=== PATIENT | female | born 1985 | race Caucasian/White ===

== ENCOUNTER → 2016-05-24 | Outpatient (CLI) | payer OTHER ==
[~2016-05-24] MED LIST: ACETAMINOPHEN TAB 500 MG TAB PO ONE; LORATADINE 10 MG TAB PO ONE; SODIUM CHLORIDE 0.9% 250 ML in EMPTY BAG 1 BAG IV PRN; SODIUM CHLORIDE 0.9% 500 ML in EMPTY BAG 1 BAG IV PRN
[2016-05-24 12:21] VITALS: RESP 16; TEMP 98.4
[2016-05-24 13:49] VITALS: BP 109/68; PULSE 80
== END | disposition home or self-care (01) ==
LOC: PROCWHC3 11:57
PROVIDERS: ATTEND Physician Assistant
DX: K50.80 Crohn's disease of both small and large intestine without complications (principal)
CPT/HCPCS: 96361; 96413; 96415; J1745

== ENCOUNTER → 2016-08-02 | Outpatient (CLI) | payer OTHER ==
[~2016-08-02] MED LIST changes: -ACETAMINOPHEN TAB 500 MG TAB PO ONE; -LORATADINE 10 MG TAB PO ONE; -SODIUM CHLORIDE 0.9% 500 ML in EMPTY BAG 1 BAG IV PRN
[2016-08-02 13:04] VITALS: RESP 16; TEMP 98.3
[2016-08-02] MEDS: SODIUM CHLORIDE 0.9% 500 ML in EMPTY BAG 1 BAG IV PRN (13:06)
[2016-08-02 13:39] LABS: Basophils # (A) 0.1 k/uL (0-0.2); Basophils % (A) 1 %; CH 31.4; CHCM 33.4; Eosinophils # (A) 0.1 k/uL (0-0.7); Eosinophils % (A) 1 %; HCT 45.8 % (34.0-46.0); Luc # (Auto) 0.15; Luc % (Auto) 2; Lymphocytes # (A) 1.8 k/uL (1.0-4.8); Lymphocytes % (A) 25 %; MCH 30.9 pg (25.0-35.0); MCHC 32.6 g/dL (31.0-37.0); MCV 94.6 fL (80.0-100.0); Mean Platelet Volume 9.1; Monocytes # (A) 0.3 k/uL (0-1.0); Monocytes % (A) 4 %; Neutrophils # (A) 4.8 k/uL (1.3-7.7); Neutrophils % (A) 67 %; RBC 4.84 m/uL (3.80-5.40); RDW 13.2 % (11.5-15.5); WBC 7.1 k/uL (3.8-10.6)
[2016-08-02 14:02] LABS: ALT 31 U/L (9-52); AST 23 U/L (14-36); Alkaline Phosphatase 47 U/L (38-126); Anion Gap 15 mmol/L; Blood Urea Nitrogen 8 mg/dL (7-17); Calcium 9.6 mg/dL (8.4-10.2); Carbon Dioxide 20 mmol/L (22-30); Chloride 109 mmol/L (98-107); Glucose 141 mg/dL (74-99); Non-African American GFR(MDRD) >60 (>60 ml/min/1.73 sqM); Potassium 3.8 mmol/L (3.5-5.1); Sodium 144 mmol/L (137-145); Total Bilirubin 0.7 mg/dL (0.2-1.3); Total Protein 7.5 g/dL (6.3-8.2)
[2016-08-02 14:14] VITALS: PULSE 83
[2016-08-02 14:26] VITALS: BP 112/75
== END | disposition home or self-care (01) ==
LOC: PROCWHC3 12:46
PROVIDERS: ATTEND Internal Medicine Gastroenterology
DX: K50.80 Crohn's disease of both small and large intestine without complications (principal)
CPT/HCPCS: 80053; 85025; 96361; 96413; 96415; 36415; J1745

== ENCOUNTER → 2016-09-27 | Outpatient (CLI) | payer OTHER ==
[~2016-09-27] MED LIST changes: +SODIUM CHLORIDE 0.9% 500 ML in EMPTY BAG 1 BAG IV PRN
[2016-09-27 12:28] VITALS: TEMP 98.3
[2016-09-27 13:45] VITALS: RESP 16
[2016-09-27 14:04] VITALS: BP 115/64; PULSE 62
== END | disposition home or self-care (01) ==
LOC: PROCWHC3 11:59
PROVIDERS: ATTEND Internal Medicine Gastroenterology
DX: K50.80 Crohn's disease of both small and large intestine without complications (principal)
CPT/HCPCS: 96413; 96415; J1745

== ENCOUNTER → 2016-11-28 | Outpatient (CLI) | payer OTHER ==
[~2016-11-28] MED LIST changes: +ACETAMINOPHEN TAB 500 MG TAB PO PRN
[2016-11-28 13:18] VITALS: RESP 16; TEMP 98.7
[2016-11-28 14:00] LABS: Basophils # (A) 0.1 k/uL (0-0.2); Basophils % (A) 1 %; CHCM 33.5; Eosinophils # (A) 0.2 k/uL (0-0.7); Eosinophils % (A) 2 %; HCT 38.2 % (34.0-46.0); HDW 2.17; HGB 13.1 gm/dL (11.4-16.0); Luc # (Auto) 0.11; Luc % (Auto) 2; Lymphocytes # (A) 1.7 k/uL (1.0-4.8); Lymphocytes % (A) 23 %; MCH 31.9 pg (25.0-35.0); MCHC 34.3 g/dL (31.0-37.0); MCV 93.1 fL (80.0-100.0); Mean Platelet Volume 8.5; Monocytes # (A) 0.3 k/uL (0-1.0); Monocytes % (A) 4 %; Neutrophils % (A) 69 %; RDW 13.4 % (11.5-15.5); WBC 7.3 k/uL (3.8-10.6); WBC (Perox) 7.13
[2016-11-28 14:19] LABS: ALT 22 U/L (9-52); AST 17 U/L (14-36); Alkaline Phosphatase 46 U/L (38-126); Anion Gap 10 mmol/L; Blood Urea Nitrogen 6 mg/dL (7-17); Carbon Dioxide 23 mmol/L (22-30); Chloride 107 mmol/L (98-107); Glucose 71 mg/dL (74-99); Non-African American GFR(MDRD) >60 (>60 ml/min/1.73 sqM); Potassium 3.7 mmol/L (3.5-5.1); Sodium 140 mmol/L (137-145); Total Bilirubin 0.4 mg/dL (0.2-1.3); Total Protein 6.9 g/dL (6.3-8.2)
[2016-11-28 14:25] VITALS: BP 101/64; PULSE 70
== END ==
LOC: PROCWHC3 12:41
PROVIDERS: ATTEND Internal Medicine Gastroenterology
DX: Z51.11 Encounter for antineoplastic chemotherapy (principal); K50.80 Crohn's disease of both small and large intestine without complications
CPT/HCPCS: 80053; 85025; 96413; 96415; 36415; J1745

== ENCOUNTER → 2017-01-23 | Outpatient (CLI) | payer OTHER ==
[~2017-01-23] MED LIST changes: -ACETAMINOPHEN TAB 500 MG TAB PO PRN; +LORATADINE 10 MG TAB PO ONE; -SODIUM CHLORIDE 0.9% 250 ML in EMPTY BAG 1 BAG IV PRN
[2017-01-23 12:31] VITALS: RESP 16; TEMP 98.5
[2017-01-23 14:17] VITALS: BP 107/65; PULSE 56
== END ==
LOC: PROCWHC3 12:20
PROVIDERS: ATTEND Internal Medicine Gastroenterology
DX: K50.80 Crohn's disease of both small and large intestine without complications (principal)
CPT/HCPCS: 96413; 96415; J1745

== ENCOUNTER → 2017-03-13 | Outpatient (CLI) | payer SELFPAY ==
[~2017-03-13] MED LIST changes: +ACETAMINOPHEN TAB 500 MG TAB PO ONE
== END ==
LOC: PROCWHC3 11:39
PROVIDERS: ATTEND Internal Medicine Gastroenterology

== ENCOUNTER → 2017-06-12 | Outpatient (CLI) | payer OTHER ==
[~2017-06-12] MED LIST changes: -ACETAMINOPHEN TAB 500 MG TAB PO ONE; +INFLIXIMAB-DYYB 300 MG in SODIUM CHLORIDE 0.9% 250 ML IV ONE; -LORATADINE 10 MG TAB PO ONE
[2017-06-12 13:21] LABS: Basophils # (A) 0.1 k/uL (0-0.2); Basophils % (A) 1 %; Eosinophils # (A) 0.1 k/uL (0-0.7); Eosinophils % (A) 1 %; HCT 38.7 % (34.0-46.0); HGB 12.7 gm/dL (11.4-16.0); Lymphocytes # (A) 1.9 k/uL (1.0-4.8); Lymphocytes % (A) 20 %; MCH 30.6 pg (25.0-35.0); MCHC 32.7 g/dL (31.0-37.0); MCV 93.6 fL (80.0-100.0); Mean Platelet Volume 8.1; Monocytes # (A) 0.3 k/uL (0-1.0); Monocytes % (A) 3 %; Neutrophils # (A) 7.4 k/uL (1.3-7.7); Neutrophils % (A) 75 %; Platelet Count 260 k/uL (150-450); RBC 4.14 m/uL (3.80-5.40); WBC 9.9 k/uL (3.8-10.6)
[2017-06-12 13:27] LABS: ALT 19 U/L (9-52); AST 16 U/L (14-36); Albumin 4.2 g/dL (3.5-5.0); Alkaline Phosphatase 58 U/L (38-126); Anion Gap 12 mmol/L; Blood Urea Nitrogen 9 mg/dL (7-17); Calcium 9.6 mg/dL (8.4-10.2); Carbon Dioxide 24 mmol/L (22-30); Chloride 105 mmol/L (98-107); Glucose 67 mg/dL (74-99); Potassium 3.7 mmol/L (3.5-5.1); Sodium 141 mmol/L (137-145); Total Bilirubin 0.3 mg/dL (0.2-1.3); Total Protein 6.9 g/dL (6.3-8.2)
[2017-06-12 14:11] VITALS: BP 107/56; PULSE 75; RESP 16; TEMP 98.1
== END | disposition home or self-care (01) ==
LOC: PROCWHC3 12:10
PROVIDERS: ATTEND Internal Medicine Gastroenterology
DX: K50.80 Crohn's disease of both small and large intestine without complications (principal)
CPT/HCPCS: 80053; 85025; 96413; 96415; 36415; Q5102

== ENCOUNTER → 2017-08-07 | Outpatient (CLI) | payer OTHER ==
[2017-08-07 12:33] VITALS: TEMP 98.7
[2017-08-07 13:11] VITALS: RESP 18
[2017-08-07 14:12] VITALS: BP 124/77; PULSE 67
== END | disposition home or self-care (01) ==
LOC: PROCWHC3 11:56
PROVIDERS: ATTEND Internal Medicine Gastroenterology
DX: K50.90 Crohn's disease, unspecified, without complications (principal)
CPT/HCPCS: 96413; 96415; Q5102

== ENCOUNTER 2017-08-08 17:29 | Emergency (ER) | payer OTHER ==
[2017-08-08] MEDS ORDERED: SODIUM CHLORIDE 0.9% 1,000 ML IV STA (18:06)
[2017-08-08] MEDS ORDERED: MORPHINE SULFATE/PF 10MG/10ML VL IVP STA (18:06)
[2017-08-08 18:24] LABS: Appearance,Urine Clear (Clear); Basophils # (A) 0.1 k/uL (0-0.2); Basophils % (A) 1 %; Bilirubin,Urine Negative (Negative); Blood,Urine Negative (Negative); Color,Urine Yellow; Eosinophils # (A) 0.2 k/uL (0-0.7); Eosinophils % (A) 2 %; Glucose,Urine (UA) Negative (Negative); HCT 40.9 % (34.0-46.0); HGB 13.3 gm/dL (11.4-16.0); Ketones,Urine Negative (Negative); Leukocyte Esterase,Urine Negative (Negative); Lymphocytes # (A) 2.2 k/uL (1.0-4.8); Lymphocytes % (A) 23 %; MCH 29.5 pg (25.0-35.0); MCHC 32.6 g/dL (31.0-37.0); MCV 90.6 fL (80.0-100.0); Mean Platelet Volume 8.1; Monocytes # (A) 0.4 k/uL (0-1.0); Monocytes % (A) 4 %; Neutrophils # (A) 6.5 k/uL (1.3-7.7); Neutrophils % (A) 68 %; Nitrite,Urine Negative (Negative); PH, Urine 6.5 (5.0-8.0); Platelet Count 300 k/uL (150-450); Protein,Urine Trace (Negative); RBC 4.52 m/uL (3.80-5.40); RDW 13.3 % (11.5-15.5); Specific Gravity,Urine 1.022 (1.001-1.035); Urobilinogen,Urine <2.0 mg/dL (<2.0); WBC 9.5 k/uL (3.8-10.6)
--- NOTE | 2017-08-08 18:28 | ED ---
Abdominal Pain HPI - General Chief Complaint: Abdominal Pain Stated Complaint: ABDOMINAL PAIN, POSS CROHNS FLARE Time Seen by Provider: 08/08/17 17:58 Source: patient, RN notes reviewed Mode of arrival: ambulatory Limitations: no limitations - History of Present Illness Initial Comments: This is a 31-year-old female who presents emergency to pain with chief complaint of abdominal pain. Patient states that she has a history of Crohn's and is worried that this may be a flare. She states that the pain started 3 days ago and is located in the periumbilical region. She states the pain radiates to her lower abdomen. Patient states that the pain has been the same over the past 3 days but it just will not go away. She currently rates the pain as 8/10. She describes the pain as intermittent and sharp coming on every 5-10 minutes. She states her last bowel movement was 2 days ago. Denies nausea or vomiting. Denies fevers or chills, shortness of breath or chest pain , dysuria or hematuria. Patient states that she sees Dr. Ruffin for Remicade infusions for the past 2 years. Her last infusion was yesterday. - Related Data Home Medications Medication Instructions Recorded Confirmed Albuterol Sulfate [Ventolin HFA] 1 inhaler INHALATION RT-QID PRN 09/18/14 inFLIXimab [Remicade] 100 mg IV Q60D 08/06/15 08/08/17 Allergies Allergy/AdvReac Type Severity Reaction Status Date / Time No Known Allergies Allergy Verified 08/08/17 18:00 Review of Systems ROS Statement: Those systems with pertinent positive or pertinent negative responses have been documented in the HPI. ROS Other: All systems not noted in ROS Statement are negative. Past Medical History Past Medical History: No Reported History Additional Past Medical History / Comment(s): Crohn's, hypoglycemia History of Any Multi-Drug Resistant Organisms: None Reported Past Surgical History: Adenoidectomy, Section Past Anesthesia/Blood Transfusion Reactions: No Reported Reaction Past Psychological History: No Psychological Hx Reported Smoking Status: Former smoker Past Alcohol Use History: None Reported Past Drug Use History: Marijuana - Past Family History Mother Family Medical History: No Reported History General Exam - General Exam Comments Initial Comments: General: Awake and alert, well-developed; in no apparent distress. Sitting on ED stretcher, rocking back and forth and reading a book. HEENT: Head atraumatic, normocephalic. Pupils are equal, round and reactive to light. Extraocular movements intact. Oropharynx moist without erythema or exudate. Neck: Supple. Normal ROM. Cardiovascular: Regular rate and rhythm. No murmurs, rubs or gallops. Chest symmetrical. Respiratory: Lungs clear to auscultation bilaterally. No wheezes, rales or rhonchi. Normal respiratory effort with no use of accessory muscles. Abdomen: Soft, non-distended. Generalized tenderness on palpation of lower abdomen with guarding. No rigidity, or rebound. Normal bowel sounds in all 4 quadrants. Musculoskeletal: Normal ROM, no tenderness bilateral upper and lower extremities. Skin: [place], warm and dry without rashes or lesions. Neurological: Alert and oriented x3. CN II-XII grossly intact. Speech is fluent and answers are appropriate. No focal neuro deficits. Psychiatric: Normal mood and affect. No overt signs of depression or anxiety noted. Limitations: no limitations Course Vital Signs 08/08/17 17:33 Temperature 98.9 F Pulse Rate 85 Respiratory 16 Rate Blood Pressure 123/78 O2 Sat by Pulse 99 Oximetry - Reevaluation(s) Reevaluation #1: 08/08/17 19:07 Patient was reevaluated at this time. She states that her pain has much improved and she is feeling significantly better. Lab findings were discussed with patient. She is eager for discharge home and follow-up with Dr. Ruffin outpatient. Medical Decision Making - Medical Decision Making This is a 31-year-old female with history of Crohn's disease who presents to the emergency department with chief complaint of abdominal pain. CBC, CMP and UA were unremarkable. Patient denies any rectal bleeding, nausea or vomiting. KUB revealed no abnormalities. Patient was given fluids and pain medication while in the emergency department. Initially after receiving the medication, patient stated that she was feeling remarkably improved. On second reevaluation , patient complains of recurring pain but not as bad as when she first arrived. Recommended computed tomography scan and patient declines, stating that she would like to be discharged home. Vital signs are stable and she is in no acute distress. She'll be discharged home. Recommended following up with Dr. Ruffin within 1-2 days. Patient is in agreement with plan and voices understanding. All questions were answered. - Lab Data Result diagrams: 08/08/17 17:50 08/08/17 17:50 Lab Results 08/08/17 08/08/17 08/08/17 Range/Units 17:50 17:50 17:50 WBC 9.5 (3.8-10.6) k/uL RBC 4.52 (3.80-5.40) m/uL Hgb 13.3 (11.4-16.0) gm/dL Hct 40.9 (34.0-46.0) % MCV 90.6 (80.0-100.0) fL MCH 29.5 (25.0-35.0) pg MCHC 32.6 (31.0-37.0) g/dL RDW 13.3 (11.5-15.5) % Plt Count 300 (150-450) k/uL Neutrophils % 68 % Lymphocytes % 23 % Monocytes % 4 % Eosinophils % 2 % Basophils % 1 % Neutrophils # 6.5 (1.3-7.7) k/uL Lymphocytes # 2.2 (1.0-4.8) k/uL Monocytes # 0.4 (0-1.0) k/uL Eosinophils # 0.2 (0-0.7) k/uL Basophils # 0.1 (0-0.2) k/uL Sodium 143 (137-145) mmol/L Potassium 4.1 (3.5-5.1) mmol/L Chloride 109 H (98-107) mmol/L Carbon Dioxide 21 L (22-30) mmol/L Anion Gap 13 mmol/L BUN 10 (7-17) mg/dL Creatinine 0.50 L (0.52-1.04) mg/dL Est GFR (CKD-EPI)AfAm >90 (>60 ml/min/1.73 sqM) Est GFR (CKD-EPI)NonAf >90 (>60 ml/min/1.73 sqM) Glucose 85 (74-99) mg/dL Calcium 9.8 (8.4-10.2) mg/dL Total Bilirubin 0.2 (0.2-1.3) mg/dL AST 14 (14-36) U/L ALT 17 (9-52) U/L Alkaline Phosphatase 69 (38-126) U/L Total Protein 7.2 (6.3-8.2) g/dL Albumin 4.2 (3.5-5.0) g/dL Amylase 50 (30-110) U/L Lipase 93 (23-300) U/L Urine Color Urine Appearance (Clear) Urine pH (5.0-8.0) Ur Specific [place] (1.001-1.035) Urine Protein (Negative) Urine Glucose (UA) (Negative) Urine Ketones (Negative) Urine Blood (Negative) Urine Nitrite (Negative) Urine Bilirubin (Negative) Urine Urobilinogen (<2.0) mg/dL Ur Leukocyte Esterase (Negative) Urine HCG, Qual Not Detected (Not Detectd) 08/08/17 Range/Units 17:50 WBC (3.8-10.6) k/uL RBC (3.80-5.40) m/uL Hgb (11.4-16.0) gm/dL Hct (34.0-46.0) % MCV (80.0-100.0) fL MCH (25.0-35.0) pg MCHC (31.0-37.0) g/dL RDW (11.5-15.5) % Plt Count (150-450) k/uL Neutrophils % % Lymphocytes % % Monocytes % % Eosinophils % % Basophils % % Neutrophils # (1.3-7.7) k/uL Lymphocytes # (1.0-4.8) k/uL Monocytes # (0-1.0) k/uL Eosinophils # (0-0.7) k/uL Basophils # (0-0.2) k/uL Sodium (137-145) mmol/L Potassium (3.5-5.1) mmol/L Chloride (98-107) mmol/L Carbon Dioxide (22-30) mmol/L Anion Gap mmol/L BUN (7-17) mg/dL Creatinine (0.52-1.04) mg/dL Est GFR (CKD-EPI)AfAm (>60 ml/min/1.73 sqM) Est GFR (CKD-EPI)NonAf (>60 ml/min/1.73 sqM) Glucose (74-99) mg/dL Calcium (8.4-10.2) mg/dL Total Bilirubin (0.2-1.3) mg/dL AST (14-36) U/L ALT (9-52) U/L Alkaline Phosphatase (38-126) U/L Total Protein (6.3-8.2) g/dL Albumin (3.5-5.0) g/dL Amylase (30-110) U/L Lipase (23-300) U/L Urine Color Yellow Urine Appearance Clear (Clear) Urine pH 6.5 (5.0-8.0) Ur Specific [place] 1.022 (1.001-1.035) Urine Protein Trace H (Negative) Urine Glucose (UA) Negative (Negative) Urine Ketones Negative (Negative) Urine Blood Negative (Negative) Urine Nitrite Negative (Negative) Urine Bilirubin Negative (Negative) Urine Urobilinogen <2.0 (<2.0) mg/dL Ur Leukocyte Esterase Negative (Negative) Urine HCG, Qual (Not Detectd) - Radiology Data Radiology results: report reviewed X-ray KUB findings: There is no pneumoperitoneum or pneumatosis. Bowel gas pattern is normal. Soft tissues and skeletal structures are unremarkable. No abnormal calcifications. The visualized lung bases and pleural spaces and cardiac silhouette are unremarkable. Impression: Negative examination. Disposition Clinical Impression: Abdominal pain Disposition: HOME SELF-CARE Condition: Good Instructions: Abdominal Pain (ED), Crohn Disease (ED) Additional Instructions: Please follow-up with Dr. Ruffin within 1-2 days. Please follow up with primary care provider within 1-2 days. Return to emergency department if symptoms should worsen or any concerns arise. Referrals: Madison Vick MD [Primary Care Provider] - 1-2 days Le Ruffin MD [STAFF PHYSICIAN] - 1-2 days Time of Disposition: 19:45
[2017-08-08 18:37] LABS: ALT 17 U/L (9-52); AST 14 U/L (14-36); Albumin 4.2 g/dL (3.5-5.0); Alkaline Phosphatase 69 U/L (38-126); Amylase 50 U/L (30-110); Anion Gap 13 mmol/L; Blood Urea Nitrogen 10 mg/dL (7-17); Calcium 9.8 mg/dL (8.4-10.2); Carbon Dioxide 21 mmol/L (22-30); Chloride 109 mmol/L (98-107); Glucose 85 mg/dL (74-99); Lipase 93 U/L (23-300); Potassium 4.1 mmol/L (3.5-5.1); Sodium 143 mmol/L (137-145); Total Bilirubin 0.2 mg/dL (0.2-1.3); Total Protein 7.2 g/dL (6.3-8.2)
--- NOTE | 2017-08-08 19:30 | XR ---
EXAMINATION TYPE: XR KUB, 2 views DATE OF EXAM: 08/08/2017 COMPARISON: 09/04/2012 HISTORY: Right-sided abdominal pain, history of Crohn's TECHNIQUE: 2 upright views FINDINGS: There is no pneumoperitoneum or pneumatosis. Bowel gas pattern is normal. The soft tissues and skeletal structures are unremarkable. No abnormal calcifications. The visualized lung bases and pleural spaces and cardiac silhouette are unremarkable. IMPRESSION: NEGATIVE EXAMINATION.
[2017-08-08] MEDS ORDERED: ACETAMINOPHEN TAB 500 MG TAB PO STA (20:00)
[2017-08-08 20:01] VITALS: RESP 18; TEMP 98
[2017-08-08] MEDS ORDERED: ONDANSETRON ODT 4 MG TAB PO STA (20:04)
[2017-08-08 20:09] VITALS: BP 131/75; PULSE 70
[2017-08-08] MEDS ORDERED: ONDANSETRON 4 MG ODT STARTER PACK 2 TAB BTL PO STA (20:31)
== END 2017-08-08 20:37 | disposition home or self-care (01) ==
LOC: EC 17:29
DX: R10.30 Lower abdominal pain, unspecified (principal); K50.90 Crohn's disease, unspecified, without complications; Z87.891 Personal history of nicotine dependence; Z79.899 Other long term (current) drug therapy; Z98.890 Other specified postprocedural states
CPT/HCPCS: 96374; 96361 ×2; 99284; 36415; 80053; 82150; 83690; 85025; 81003; 81025; 74018; S0119; J2270

== ENCOUNTER 2017-10-04 06:26 | Emergency (ER) | payer OTHER ==
[2017-10-04] MEDS ORDERED: MORPHINE SULFATE 4 MG/ML SYRINGE IV STA (06:37)
[2017-10-04] MEDS ORDERED: ONDANSETRON 4 MG/2 ML VIAL IVP STA (06:37)
[2017-10-04 07:06] VITALS: RESP 16
[2017-10-04 07:08] LABS: Basophils % (A) 0 %; Eosinophils # (A) 0.1 k/uL (0-0.7); Eosinophils % (A) 1 %; HGB 13.5 gm/dL (11.4-16.0); Lymphocytes # (A) 0.7 k/uL (1.0-4.8); Lymphocytes % (A) 5 %; MCH 28.8 pg (25.0-35.0); MCHC 32.1 g/dL (31.0-37.0); MCV 89.5 fL (80.0-100.0); Mean Platelet Volume 8.1; Monocytes # (A) 0.1 k/uL (0-1.0); Monocytes % (A) 1 %; Neutrophils # (A) 13.4 k/uL (1.3-7.7); Neutrophils % (A) 93 %; Platelet Count 309 k/uL (150-450); RDW 13.5 % (11.5-15.5); WBC 14.4 k/uL (3.8-10.6)
[2017-10-04] MEDS ORDERED: SODIUM CHLORIDE 0.9% 1,000 ML IV STA (07:15)
[2017-10-04] MEDS ORDERED: SODIUM CHLORIDE 0.9% 2,000 ML IV ONE (07:15)
[2017-10-04 07:17] LABS: ALT 29 U/L (9-52); AST 16 U/L (14-36); Albumin 4.5 g/dL (3.5-5.0); Alkaline Phosphatase 81 U/L (38-126); Amylase 46 U/L (30-110); Anion Gap 17 mmol/L; Blood Urea Nitrogen 10 mg/dL (7-17); Calcium 10.1 mg/dL (8.4-10.2); Carbon Dioxide 21 mmol/L (22-30); Chloride 105 mmol/L (98-107); Glucose 172 mg/dL (74-99); Lipase 63 U/L (23-300); Potassium 4.5 mmol/L (3.5-5.1); Sodium 143 mmol/L (137-145); Total Bilirubin 0.7 mg/dL (0.2-1.3); Total Protein 7.4 g/dL (6.3-8.2)
--- NOTE | 2017-10-04 07:28 | ED ---
Abdominal Pain HPI - General Chief Complaint: Abdominal Pain Stated Complaint: vomiting Time Seen by Provider: 10/04/17 07:00 Source: patient, RN notes reviewed Mode of arrival: wheelchair Limitations: no limitations - History of Present Illness Initial Comments: This is a 32-year-old female history Crohn's disease who states she had the onset last night of multiple episodes of nausea and vomiting with crampy abdominal pain that is diffuse and severe. She thinks she vomited 15 times no diarrhea he's had shakes and sweats or chills. No blood in her vomit. She states that since that episode with history of bowel obstruction. She denies any surgeries however for the Crohn's disease. She does also state that she has lightheadedness and dizziness when she gets up to try to walk. No other modifying factors she was given pain medication upon arrival as well as Zofran she does feelsomewhat improved at this time. MD Complaint: abdominal pain, other - Related Data Home Medications Medication Instructions Recorded Confirmed Albuterol Sulfate [Ventolin HFA] 1 puff INHALATION RT-QID PRN 09/18/14 10/04/17 inFLIXimab [Remicade] 100 mg IV Q60D 08/06/15 10/04/17 Acetaminophen Tab [Tylenol Tab] 1,000 mg PO Q6HR PRN 10/04/17 10/04/17 Previous Rx's Medication Instructions Recorded Ondansetron Odt [Zofran Odt] 4 mg PO Q8HR PRN #10 tab 10/04/17 Allergies Allergy/AdvReac Type Severity Reaction Status Date / Time No Known Allergies Allergy Verified 10/04/17 08:16 Review of Systems ROS Statement: Those systems with pertinent positive or pertinent negative responses have been documented in the HPI. ROS Other: All systems not noted in ROS Statement are negative. Past Medical History Past Medical History: No Reported History Additional Past Medical History / Comment(s): Crohn's, hypoglycemia History of Any Multi-Drug Resistant Organisms: None Reported Past Surgical History: Adenoidectomy, Section Past Anesthesia/Blood Transfusion Reactions: No Reported Reaction Past Psychological History: No Psychological Hx Reported Smoking Status: Current every day smoker Past Alcohol Use History: None Reported Past Drug Use History: Marijuana - Past Family History Mother Family Medical History: No Reported History General Exam - General Exam Comments Initial Comments: This is a well-developed well-nourished awake alert oriented 3 female Limitations: no limitations General appearance: alert, anxious Head exam: Present: atraumatic, normocephalic, normal inspection Eye exam: Present: normal appearance, PERRL, EOMI. Absent: scleral icterus, conjunctival injection, periorbital swelling ENT exam: Present: normal exam, mucous membranes moist Neck exam: Present: normal inspection. Absent: tenderness, meningismus, lymphadenopathy Respiratory exam: Present: normal lung sounds bilaterally. Absent: respiratory distress, wheezes, rales, rhonchi, stridor Cardiovascular Exam: Present: regular rate, normal rhythm, normal heart sounds. Absent: systolic murmur, diastolic murmur, rubs, gallop, clicks GI/Abdominal exam: Present: soft, tenderness (Mild generalized tenderness no guarding rebound masses or bruits), normal bowel sounds. Absent: distended, guarding, rebound, rigid Rectal exam: Present: deferred Extremities exam: Present: normal inspection, full ROM, normal capillary refill. Absent: tenderness, pedal edema, joint swelling, calf tenderness Back exam: Present: normal inspection Neurological exam: Present: alert, oriented X3, CN II-XII intact Psychiatric exam: Present: normal affect, normal mood Skin exam: Present: warm, dry, intact, normal color. Absent: rash Course Vital Signs 10/04/17 10/04/17 10/04/17 06:29 07:05 07:28 Temperature 97.1 F L 97.3 F L Pulse Rate 83 52 L 50 L Respiratory 19 16 16 Rate Blood Pressure 106/65 114/75 120/79 O2 Sat by Pulse 99 96 99 Oximetry 10/04/17 08:26 Temperature Pulse Rate 66 Respiratory 16 Rate Blood Pressure 97/54 O2 Sat by Pulse 99 Oximetry Medical Decision Making - Medical Decision Making Reevaluation patient reveals she still much improved after IV fluids a challenge oral fluids was successful she feels much improved and would like to go home she'll be discharged - Lab Data Result diagrams: 10/04/17 07:00 10/04/17 06:40 Lab Results 10/04/17 10/04/17 10/04/17 Range/Units 06:40 06:40 07:00 WBC 14.4 H (3.8-10.6) k/uL RBC 4.70 (3.80-5.40) m/uL Hgb 13.5 (11.4-16.0) gm/dL Hct 42.0 (34.0-46.0) % MCV 89.5 (80.0-100.0) fL MCH 28.8 (25.0-35.0) pg MCHC 32.1 (31.0-37.0) g/dL RDW 13.5 (11.5-15.5) % Plt Count 309 (150-450) k/uL Neutrophils % 93 % Lymphocytes % 5 % Monocytes % 1 % Eosinophils % 1 % Basophils % 0 % Neutrophils # 13.4 H (1.3-7.7) k/uL Lymphocytes # 0.7 L (1.0-4.8) k/uL Monocytes # 0.1 (0-1.0) k/uL Eosinophils # 0.1 (0-0.7) k/uL Basophils # 0.0 (0-0.2) k/uL Sodium 143 (137-145) mmol/L Potassium 4.5 (3.5-5.1) mmol/L Chloride 105 (98-107) mmol/L Carbon Dioxide 21 L (22-30) mmol/L Anion Gap 17 mmol/L BUN 10 (7-17) mg/dL Creatinine 0.60 (0.52-1.04) mg/dL Est GFR (CKD-EPI)AfAm >90 (>60 ml/min/1.73 sqM) Est GFR (CKD-EPI)NonAf >90 (>60 ml/min/1.73 sqM) Glucose 172 H (74-99) mg/dL Calcium 10.1 (8.4-10.2) mg/dL Magnesium 1.9 (1.6-2.3) mg/dL Total Bilirubin 0.7 (0.2-1.3) mg/dL AST 16 (14-36) U/L ALT 29 (9-52) U/L Alkaline Phosphatase 81 (38-126) U/L C-Reactive Protein 14.4 H (<10.0) mg/L Total Protein 7.4 (6.3-8.2) g/dL Albumin 4.5 (3.5-5.0) g/dL Amylase 46 (30-110) U/L Lipase 63 (23-300) U/L Urine Color Urine Appearance (Clear) Urine pH (5.0-8.0) Ur Specific [place] (1.001-1.035) Urine Protein (Negative) Urine Glucose (UA) (Negative) Urine Ketones (Negative) Urine Blood (Negative) Urine Nitrite (Negative) Urine Bilirubin (Negative) Urine Urobilinogen (<2.0) mg/dL Ur Leukocyte Esterase (Negative) Urine RBC (0-5) /hpf Urine WBC (0-5) /hpf Ur Squamous Epith Cells (0-4) /hpf Amorphous Sediment (None) /hpf Urine Bacteria (None) /hpf Urine Mucus (None) /hpf Urine HCG, Qual (Not Detectd) 10/04/17 10/04/17 Range/Units 07:11 07:11 WBC (3.8-10.6) k/uL RBC (3.80-5.40) m/uL Hgb (11.4-16.0) gm/dL Hct (34.0-46.0) % MCV (80.0-100.0) fL MCH (25.0-35.0) pg MCHC (31.0-37.0) g/dL RDW (11.5-15.5) % Plt Count (150-450) k/uL Neutrophils % % Lymphocytes % % Monocytes % % Eosinophils % % Basophils % % Neutrophils # (1.3-7.7) k/uL Lymphocytes # (1.0-4.8) k/uL Monocytes # (0-1.0) k/uL Eosinophils # (0-0.7) k/uL Basophils # (0-0.2) k/uL Sodium (137-145) mmol/L Potassium (3.5-5.1) mmol/L Chloride (98-107) mmol/L Carbon Dioxide (22-30) mmol/L Anion Gap mmol/L BUN (7-17) mg/dL Creatinine (0.52-1.04) mg/dL Est GFR (CKD-EPI)AfAm (>60 ml/min/1.73 sqM) Est GFR (CKD-EPI)NonAf (>60 ml/min/1.73 sqM) Glucose (74-99) mg/dL Calcium (8.4-10.2) mg/dL Magnesium (1.6-2.3) mg/dL Total Bilirubin (0.2-1.3) mg/dL AST (14-36) U/L ALT (9-52) U/L Alkaline Phosphatase (38-126) U/L C-Reactive Protein (<10.0) mg/L Total Protein (6.3-8.2) g/dL Albumin (3.5-5.0) g/dL Amylase (30-110) U/L Lipase (23-300) U/L Urine Color Yellow Urine Appearance Cloudy H (Clear) Urine pH 7.5 (5.0-8.0) Ur Specific [place] 1.023 (1.001-1.035) Urine Protein 1+ H (Negative) Urine Glucose (UA) Negative (Negative) Urine Ketones 4+ H (Negative) Urine Blood Negative (Negative) Urine Nitrite Negative (Negative) Urine Bilirubin Negative (Negative) Urine Urobilinogen 2.0 (<2.0) mg/dL Ur Leukocyte Esterase Negative (Negative) Urine RBC 3 (0-5) /hpf Urine WBC 4 (0-5) /hpf Ur Squamous Epith Cells 2 (0-4) /hpf Amorphous Sediment Moderate H (None) /hpf Urine Bacteria Occasional H (None) /hpf Urine Mucus Moderate H (None) /hpf Urine HCG, Qual Not Detected (Not Detectd) - Radiology Data Radiology results: image reviewed (I did review the imaging no acute findings are seen. The report was pending at the time of my) Disposition Clinical Impression: Acute gastritis, Intractable vomiting with nausea, Dehydration Disposition: HOME SELF-CARE Condition: Good Instructions: Dehydration (ED), Gastritis (ED), Acute Nausea and Vomiting (ED) Prescriptions: Ondansetron Odt [Zofran Odt] 4 mg PO Q8HR PRN #10 tab PRN Reason: Nausea Is patient prescribed a controlled substance at d/c from ED?: No Referrals: Madison Vick MD [Primary Care Provider] - 1-2 days
[2017-10-04 07:29] LABS: C Reactive Protein 14.4 mg/L (<10.0)
[2017-10-04 07:36] LABS: Amorphous Sediment,Urine Moderate /hpf; Appearance,Urine Cloudy (Clear); Bacteria,Urine Occasional /hpf; Bilirubin,Urine Negative (Negative); Blood,Urine Negative (Negative); Color,Urine Yellow; Glucose,Urine (UA) Negative (Negative); Ketones,Urine 4+ (Negative); Leukocyte Esterase,Urine Negative (Negative); Mucus,Urine Moderate /hpf; Nitrite,Urine Negative (Negative); PH, Urine 7.5 (5.0-8.0); Protein,Urine 1+ (Negative); RBC,Urine 3 /hpf (0-5); Specific Gravity,Urine 1.023 (1.001-1.035); Squamous Epithelial Cell,Urine 2 /hpf (0-4); WBC,Urine 4 /hpf (0-5)
--- NOTE | 2017-10-04 09:34 | ED ---
Medical Decision Making - Lab Data Result diagrams: 10/04/17 07:00 10/04/17 06:40 Lab Results 10/04/17 10/04/17 10/04/17 Range/Units 06:40 06:40 07:00 WBC 14.4 H (3.8-10.6) k/uL RBC 4.70 (3.80-5.40) m/uL Hgb 13.5 (11.4-16.0) gm/dL Hct 42.0 (34.0-46.0) % MCV 89.5 (80.0-100.0) fL MCH 28.8 (25.0-35.0) pg MCHC 32.1 (31.0-37.0) g/dL RDW 13.5 (11.5-15.5) % Plt Count 309 (150-450) k/uL Neutrophils % 93 % Lymphocytes % 5 % Monocytes % 1 % Eosinophils % 1 % Basophils % 0 % Neutrophils # 13.4 H (1.3-7.7) k/uL Lymphocytes # 0.7 L (1.0-4.8) k/uL Monocytes # 0.1 (0-1.0) k/uL Eosinophils # 0.1 (0-0.7) k/uL Basophils # 0.0 (0-0.2) k/uL Sodium 143 (137-145) mmol/L Potassium 4.5 (3.5-5.1) mmol/L Chloride 105 (98-107) mmol/L Carbon Dioxide 21 L (22-30) mmol/L Anion Gap 17 mmol/L BUN 10 (7-17) mg/dL Creatinine 0.60 (0.52-1.04) mg/dL Est GFR (CKD-EPI)AfAm >90 (>60 ml/min/1.73 sqM) Est GFR (CKD-EPI)NonAf >90 (>60 ml/min/1.73 sqM) Glucose 172 H (74-99) mg/dL Calcium 10.1 (8.4-10.2) mg/dL Magnesium 1.9 (1.6-2.3) mg/dL Total Bilirubin 0.7 (0.2-1.3) mg/dL AST 16 (14-36) U/L ALT 29 (9-52) U/L Alkaline Phosphatase 81 (38-126) U/L C-Reactive Protein 14.4 H (<10.0) mg/L Total Protein 7.4 (6.3-8.2) g/dL Albumin 4.5 (3.5-5.0) g/dL Amylase 46 (30-110) U/L Lipase 63 (23-300) U/L Urine Color Urine Appearance (Clear) Urine pH (5.0-8.0) Ur Specific [place] (1.001-1.035) Urine Protein (Negative) Urine Glucose (UA) (Negative) Urine Ketones (Negative) Urine Blood (Negative) Urine Nitrite (Negative) Urine Bilirubin (Negative) Urine Urobilinogen (<2.0) mg/dL Ur Leukocyte Esterase (Negative) Urine RBC (0-5) /hpf Urine WBC (0-5) /hpf Ur Squamous Epith Cells (0-4) /hpf Amorphous Sediment (None) /hpf Urine Bacteria (None) /hpf Urine Mucus (None) /hpf Urine HCG, Qual (Not Detectd) 10/04/17 10/04/17 Range/Units 07:11 07:11 WBC (3.8-10.6) k/uL RBC (3.80-5.40) m/uL Hgb (11.4-16.0) gm/dL Hct (34.0-46.0) % MCV (80.0-100.0) fL MCH (25.0-35.0) pg MCHC (31.0-37.0) g/dL RDW (11.5-15.5) % Plt Count (150-450) k/uL Neutrophils % % Lymphocytes % % Monocytes % % Eosinophils % % Basophils % % Neutrophils # (1.3-7.7) k/uL Lymphocytes # (1.0-4.8) k/uL Monocytes # (0-1.0) k/uL Eosinophils # (0-0.7) k/uL Basophils # (0-0.2) k/uL Sodium (137-145) mmol/L Potassium (3.5-5.1) mmol/L Chloride (98-107) mmol/L Carbon Dioxide (22-30) mmol/L Anion Gap mmol/L BUN (7-17) mg/dL Creatinine (0.52-1.04) mg/dL Est GFR (CKD-EPI)AfAm (>60 ml/min/1.73 sqM) Est GFR (CKD-EPI)NonAf (>60 ml/min/1.73 sqM) Glucose (74-99) mg/dL Calcium (8.4-10.2) mg/dL Magnesium (1.6-2.3) mg/dL Total Bilirubin (0.2-1.3) mg/dL AST (14-36) U/L ALT (9-52) U/L Alkaline Phosphatase (38-126) U/L C-Reactive Protein (<10.0) mg/L Total Protein (6.3-8.2) g/dL Albumin (3.5-5.0) g/dL Amylase (30-110) U/L Lipase (23-300) U/L Urine Color Yellow Urine Appearance Cloudy H (Clear) Urine pH 7.5 (5.0-8.0) Ur Specific [place] 1.023 (1.001-1.035) Urine Protein 1+ H (Negative) Urine Glucose (UA) Negative (Negative) Urine Ketones 4+ H (Negative) Urine Blood Negative (Negative) Urine Nitrite Negative (Negative) Urine Bilirubin Negative (Negative) Urine Urobilinogen 2.0 (<2.0) mg/dL Ur Leukocyte Esterase Negative (Negative) Urine RBC 3 (0-5) /hpf Urine WBC 4 (0-5) /hpf Ur Squamous Epith Cells 2 (0-4) /hpf Amorphous Sediment Moderate H (None) /hpf Urine Bacteria Occasional H (None) /hpf Urine Mucus Moderate H (None) /hpf Urine HCG, Qual Not Detected (Not Detectd) Disposition Clinical Impression: Acute gastritis, Intractable vomiting with nausea, Dehydration Disposition: HOME SELF-CARE Condition: Good Instructions: Gastritis (ED), Dehydration (ED), Acute Nausea and Vomiting (ED) Prescriptions: Dicyclomine [Bentyl] 10 mg PO TID PRN #10 capsule PRN Reason: Pain Ondansetron Odt [Zofran Odt] 4 mg PO Q8HR PRN #10 tab PRN Reason: Nausea Is patient prescribed a controlled substance at d/c from ED?: No Referrals: Madison Vick MD [Primary Care Provider] - 1-2 days
[2017-10-04 09:37] VITALS: BP 105/60; PULSE 78; TEMP 98
--- NOTE | 2017-10-04 10:47 | XR ---
EXAMINATION TYPE: XR abdomen acute w cxr DATE OF EXAM: 10/04/2017 COMPARISON: NONE HISTORY: Abdominal pain and vomiting with history of Crohn's and asthma TECHNIQUE: Single view upright chest radiograph and upright and supine abdominal radiographs were pe rformed. Note the upright abdominal radiograph only includes the upper abdomen for exclusion of pneum operitoneum. FINDINGS: CHEST: No focal consolidation, pleural effusion or pneumothorax. Cardiac mediastinal silhouette is wi thin normal limits. Osseous structures are intact. ABDOMEN: Osseous structures are intact. Overall there is a paucity of bowel gas but no dilated bowel. Foreign body, likely from embolic is noted within the region of the vaginal vault. No abnormal calci fication within the abdomen or pelvis. IMPRESSION: No acute cardiopulmonary process and nonobstructive bowel gas pattern.
== END 2017-10-04 09:36 | disposition home or self-care (01) ==
LOC: EC 06:26
DX: K29.00 Acute gastritis without bleeding (principal); E86.0 Dehydration; K50.90 Crohn's disease, unspecified, without complications; F17.200 Nicotine dependence, unspecified, uncomplicated; Z79.899 Other long term (current) drug therapy
CPT/HCPCS: 99284; 96374; 96375; 96361 ×2; 36415; 80053; 82150; 83690; 83735; 85025; 86140; 81001; 81025; 74022; J2270; J2405

== ENCOUNTER → 2017-10-08 | Outpatient (CLI) | payer OTHER ==
[~2017-10-08] MED LIST changes: +INFLIXIMAB-DYYB 300 MG in SODIUM CHLORIDE 0.9% 250 ML IV NR
[2017-10-08 11:42] VITALS: RESP 16; TEMP 98.3
[2017-10-08 11:59] LABS: Basophils % (A) 1 %; Eosinophils # (A) 0.1 k/uL (0-0.7); Eosinophils % (A) 1 %; HCT 40.9 % (34.0-46.0); HGB 13.3 gm/dL (11.4-16.0); Lymphocytes # (A) 1.6 k/uL (1.0-4.8); Lymphocytes % (A) 23 %; MCHC 32.6 g/dL (31.0-37.0); MCV 92.1 fL (80.0-100.0); Mean Platelet Volume 7.9; Monocytes # (A) 0.2 k/uL (0-1.0); Monocytes % (A) 3 %; Neutrophils % (A) 71 %; Platelet Count 277 k/uL (150-450); RBC 4.44 m/uL (3.80-5.40); RDW 13.6 % (11.5-15.5)
[2017-10-08 12:34] LABS: ALT 26 U/L (9-52); AST 14 U/L (14-36); Albumin 4.2 g/dL (3.5-5.0); Alkaline Phosphatase 57 U/L (38-126); Anion Gap 13 mmol/L; Blood Urea Nitrogen 9 mg/dL (7-17); Calcium 9.4 mg/dL (8.4-10.2); Carbon Dioxide 25 mmol/L (22-30); Chloride 107 mmol/L (98-107); Glucose 88 mg/dL (74-99); Potassium 3.8 mmol/L (3.5-5.1); Sodium 145 mmol/L (137-145); Total Bilirubin 0.2 mg/dL (0.2-1.3)
[2017-10-08 13:26] VITALS: BP 110/64; PULSE 68
== END | disposition home or self-care (01) ==
LOC: PROCWHC3 11:25
PROVIDERS: ATTEND Internal Medicine Gastroenterology
DX: K50.80 Crohn's disease of both small and large intestine without complications (principal)
CPT/HCPCS: 80053; 85025; 96413; 96415; Q5103

== ENCOUNTER → 2017-12-03 | Outpatient (CLI) | payer OTHER ==
[~2017-12-03] MED LIST changes: -INFLIXIMAB-DYYB 300 MG in SODIUM CHLORIDE 0.9% 250 ML IV ONE
[2017-12-03 11:44] VITALS: TEMP 98.6
[2017-12-03 12:35] VITALS: RESP 14
[2017-12-03 13:11] VITALS: BP 99/66; PULSE 78
== END | disposition home or self-care (01) ==
LOC: PROCWHC3 11:28
PROVIDERS: ATTEND Internal Medicine Gastroenterology
DX: K50.80 Crohn's disease of both small and large intestine without complications (principal)
CPT/HCPCS: 96413; 96415; Q5103

== ENCOUNTER → 2018-01-28 | Outpatient (CLI) | payer OTHER ==
[2018-01-28 12:24] VITALS: TEMP 98.2
[2018-01-28 12:47] LABS: Basophils # (A) 0.1 k/uL (0-0.2); Basophils % (A) 0 %; Eosinophils % (A) 0 %; HCT 44.4 % (34.0-46.0); HGB 14.1 gm/dL (11.4-16.0); Lymphocytes # (A) 1.5 k/uL (1.0-4.8); Lymphocytes % (A) 13 %; MCH 30.2 pg (25.0-35.0); MCHC 31.8 g/dL (31.0-37.0); Mean Platelet Volume 7.7; Monocytes # (A) 0.4 k/uL (0-1.0); Monocytes % (A) 4 %; Neutrophils # (A) 9.1 k/uL (1.3-7.7); Neutrophils % (A) 81 %; Platelet Count 307 k/uL (150-450); RBC 4.67 m/uL (3.80-5.40); RDW 13.7 % (11.5-15.5); WBC 11.3 k/uL (3.8-10.6)
[2018-01-28 12:53] LABS: ALT 24 U/L (9-52); AST 19 U/L (14-36); Albumin 4.1 g/dL (3.5-5.0); Alkaline Phosphatase 55 U/L (38-126); Anion Gap 8 mmol/L; Blood Urea Nitrogen 7 mg/dL (7-17); Calcium 9.8 mg/dL (8.4-10.2); Carbon Dioxide 27 mmol/L (22-30); Chloride 107 mmol/L (98-107); Glucose 102 mg/dL (74-99); Sodium 142 mmol/L (137-145); Total Bilirubin 0.3 mg/dL (0.2-1.3); Total Protein 7.2 g/dL (6.3-8.2)
[2018-01-28 13:51] VITALS: RESP 16
[2018-01-28 14:04] VITALS: BP 104/78; PULSE 88
== END ==
LOC: PROCWHC3 11:59
PROVIDERS: ATTEND Internal Medicine Gastroenterology
DX: K50.80 Crohn's disease of both small and large intestine without complications (principal)
CPT/HCPCS: 80053; 85025; 96413; 96415; Q5103

== ENCOUNTER → 2018-03-27 | Outpatient (CLI) | payer OTHER ==
[~2018-03-27] MED LIST changes: +SODIUM CHLORIDE 0.9% 500 ML 500 ML in EMPTY BAG 1 BAG IV PRN; -SODIUM CHLORIDE 0.9% 500 ML in EMPTY BAG 1 BAG IV PRN
[2018-03-27 12:30] VITALS: RESP 16; TEMP 98.1
[2018-03-27 14:29] VITALS: BP 111/74; PULSE 84
== END | disposition home or self-care (01) ==
LOC: PROCWHC3 12:17
PROVIDERS: ATTEND Internal Medicine Gastroenterology
DX: K50.80 Crohn's disease of both small and large intestine without complications (principal)
CPT/HCPCS: 96413; 96415; Q5103

== ENCOUNTER → 2018-05-28 | Outpatient (CLI) | payer OTHER ==
[2018-05-28 12:22] VITALS: TEMP 98.4
[2018-05-28 12:56] LABS: ALT 17 U/L (9-52); AST 15 U/L (14-36); Albumin 4.3 g/dL (3.5-5.0); Alkaline Phosphatase 51 U/L (38-126); Anion Gap 7 mmol/L; Blood Urea Nitrogen 5 mg/dL (7-17); Calcium 9.6 mg/dL (8.4-10.2); Carbon Dioxide 27 mmol/L (22-30); Chloride 106 mmol/L (98-107); Glucose 81 mg/dL (74-99); Potassium 4.1 mmol/L (3.5-5.1); Sodium 140 mmol/L (137-145); Total Bilirubin 0.5 mg/dL (0.2-1.3); Total Protein 7.2 g/dL (6.3-8.2)
[2018-05-28 13:01] LABS: Basophils % (A) 0 %; Eosinophils # (A) 0.1 k/uL (0-0.7); Eosinophils % (A) 1 %; HGB 14.6 gm/dL (11.4-16.0); Lymphocytes # (A) 1.9 k/uL (1.0-4.8); Lymphocytes % (A) 22 %; MCH 31.8 pg (25.0-35.0); MCHC 33.2 g/dL (31.0-37.0); MCV 95.8 fL (80.0-100.0); Mean Platelet Volume 7.7; Monocytes # (A) 0.4 k/uL (0-1.0); Monocytes % (A) 4 %; Neutrophils % (A) 70 %; Platelet Count 302 k/uL (150-450); RBC 4.59 m/uL (3.80-5.40); RDW 13.2 % (11.5-15.5); WBC 8.6 k/uL (3.8-10.6)
[2018-05-28 14:14] VITALS: BP 111/68; PULSE 91; RESP 18
== END | disposition home or self-care (01) ==
LOC: PROCWHC3 11:50
PROVIDERS: ATTEND Internal Medicine Gastroenterology
DX: K50.80 Crohn's disease of both small and large intestine without complications (principal)
CPT/HCPCS: 80053; 85025; 96413; 96415; 36415; Q5103

== ENCOUNTER 2018-07-30 11:27 | Inpatient (IN) | payer OTHER ==
[2018-07-30] MEDS ORDERED: SODIUM CHLORIDE 0.9% 1,000 ML IV STA (12:09)
[2018-07-30] MEDS ORDERED: ONDANSETRON 4 MG/2 ML VIAL IVP STA (12:23)
[2018-07-30] MEDS ORDERED: MORPHINE SULFATE 4 MG/ML SYRINGE IVP STA (12:23)
--- NOTE | 2018-07-30 12:29 | ED ---
Abdominal Pain HPI - General Chief Complaint: Abdominal Pain Stated Complaint: Abd.pain Time Seen by Provider: 07/30/18 12:09 Source: patient, RN notes reviewed Mode of arrival: ambulatory Limitations: no limitations - History of Present Illness Initial Comments: 32-year-old female presents emergency Department with chief complaint of abdominal pain, nausea vomiting. Patient states she's has underlying Crohn's disease. Patient states the pain is consistent with her prior flares. She denies any diarrhea or rectal bleeding at this time. Denies any urinary symptoms. Patient states that her is GI physician is Dr. Rodriguez. Patient states she's not had a flareup in 3 years. She does not take any current medications. Denies any chest pain, short breath, back pain, flank pain, dysuria, hematuria or any chance . Patient had prior section other abdominal surgeries - Related Data Home Medications Medication Instructions Recorded Confirmed Albuterol Sulfate [Ventolin HFA] 1 puff INHALATION RT-QID PRN 09/18/14 07/30/18 inFLIXimab [Remicade] 100 mg IV Q60D 08/06/15 07/30/18 Acetaminophen Tab [Tylenol Tab] 1,000 mg PO Q6HR PRN 10/04/17 07/30/18 Allergies Allergy/AdvReac Type Severity Reaction Status Date / Time No Known Allergies Allergy Verified 07/30/18 12:02 Review of Systems ROS Statement: Those systems with pertinent positive or pertinent negative responses have been documented in the HPI. ROS Other: All systems not noted in ROS Statement are negative. Past Medical History Past Medical History: No Reported History Additional Past Medical History / Comment(s): Crohn's, hypoglycemia, bowel obstructions History of Any Multi-Drug Resistant Organisms: None Reported Past Surgical History: Adenoidectomy, Section Past Anesthesia/Blood Transfusion Reactions: No Reported Reaction Past Psychological History: No Psychological Hx Reported Smoking Status: Current every day smoker Past Alcohol Use History: None Reported Past Drug Use History: Marijuana - Past Family History Mother Family Medical History: No Reported History General Exam Limitations: no limitations General appearance: alert, in no apparent distress Head exam: Present: atraumatic, normocephalic, normal inspection Eye exam: Present: normal appearance, PERRL, EOMI. Absent: scleral icterus, conjunctival injection, periorbital swelling ENT exam: Present: normal exam, normal oropharynx, mucous membranes moist Neck exam: Present: normal inspection, full ROM. Absent: tenderness, meningismus, lymphadenopathy Respiratory exam: Present: normal lung sounds bilaterally. Absent: respiratory distress, wheezes, rales, rhonchi, stridor Cardiovascular Exam: Present: regular rate, normal rhythm, normal heart sounds. Absent: systolic murmur, diastolic murmur, rubs, gallop, clicks GI/Abdominal exam: Present: soft, tenderness (Moderate lower abdominal tenderness), normal bowel sounds. Absent: distended, guarding, rebound, rigid Back exam: Absent: CVA tenderness (R), CVA tenderness (L) Neurological exam: Present: alert, oriented X3, CN II-XII intact Skin exam: Present: warm, dry, intact, normal color. Absent: rash Course Vital Signs 07/30/18 11:45 Temperature 97.8 F Pulse Rate 75 Respiratory 18 Rate Blood Pressure 118/81 O2 Sat by Pulse 100 Oximetry Medical Decision Making - Medical Decision Making 32-year-old female presented for abdominal pain, nausea vomiting. Patient CT shows diffuse edema small bowel consistent with enteritis or Crohn's. Patient is uncomfortable at this time does not feel comfortable with discharge. She was given IV steroids, many for IV fluids, pain control. - Lab Data Result diagrams: 07/30/18 14:53 07/30/18 13:02 Lab Results 07/30/18 07/30/18 07/30/18 Range/Units 13:00 13:00 13:02 WBC (3.8-10.6) k/uL RBC (3.80-5.40) m/uL Hgb (11.4-16.0) gm/dL Hct (34.0-46.0) % MCV (80.0-100.0) fL MCH (25.0-35.0) pg MCHC (31.0-37.0) g/dL RDW (11.5-15.5) % Plt Count (150-450) k/uL Neutrophils % % Lymphocytes % % Monocytes % % Eosinophils % % Basophils % % Neutrophils # (1.3-7.7) k/uL Lymphocytes # (1.0-4.8) k/uL Monocytes # (0-1.0) k/uL Eosinophils # (0-0.7) k/uL Basophils # (0-0.2) k/uL Sodium 137 (137-145) mmol/L Potassium 4.0 (3.5-5.1) mmol/L Chloride 107 (98-107) mmol/L Carbon Dioxide 19 L (22-30) mmol/L Anion Gap 11 mmol/L BUN 10 (7-17) mg/dL Creatinine 0.46 L (0.52-1.04) mg/dL Est GFR (CKD-EPI)AfAm >90 (>60 ml/min/1.73 sqM) Est GFR (CKD-EPI)NonAf >90 (>60 ml/min/1.73 sqM) Glucose 108 H (74-99) mg/dL Calcium 9.8 (8.4-10.2) mg/dL Total Bilirubin 0.6 (0.2-1.3) mg/dL AST 13 L (14-36) U/L ALT 23 (9-52) U/L Alkaline Phosphatase 76 (38-126) U/L Total Protein 7.4 (6.3-8.2) g/dL Albumin 4.3 (3.5-5.0) g/dL Amylase 38 (30-110) U/L Lipase 51 (23-300) U/L Urine Color Yellow Urine Appearance Clear (Clear) Urine pH 5.5 (5.0-8.0) Ur Specific Davis 1.020 (1.001-1.035) Urine Protein Trace H (Negative) Urine Glucose (UA) Negative (Negative) Urine Ketones 3+ H (Negative) Urine Blood Negative (Negative) Urine Nitrite Negative (Negative) Urine Bilirubin Negative (Negative) Urine Urobilinogen <2.0 (<2.0) mg/dL Ur Leukocyte Esterase Negative (Negative) Urine HCG, Qual Not Detected (Not Detectd) 07/30/18 Range/Units 14:53 WBC 19.7 H (3.8-10.6) k/uL RBC 4.45 (3.80-5.40) m/uL Hgb 13.7 (11.4-16.0) gm/dL Hct 41.5 (34.0-46.0) % MCV 93.3 (80.0-100.0) fL MCH 30.8 (25.0-35.0) pg MCHC 33.0 (31.0-37.0) g/dL RDW 12.6 (11.5-15.5) % Plt Count 271 (150-450) k/uL Neutrophils % 93 % Lymphocytes % 4 % Monocytes % 2 % Eosinophils % 0 % Basophils % 0 % Neutrophils # 18.3 H (1.3-7.7) k/uL Lymphocytes # 0.8 L (1.0-4.8) k/uL Monocytes # 0.4 (0-1.0) k/uL Eosinophils # 0.1 (0-0.7) k/uL Basophils # 0.0 (0-0.2) k/uL Sodium (137-145) mmol/L Potassium (3.5-5.1) mmol/L Chloride (98-107) mmol/L Carbon Dioxide (22-30) mmol/L Anion Gap mmol/L BUN (7-17) mg/dL Creatinine (0.52-1.04) mg/dL Est GFR (CKD-EPI)AfAm (>60 ml/min/1.73 sqM) Est GFR (CKD-EPI)NonAf (>60 ml/min/1.73 sqM) Glucose (74-99) mg/dL Calcium (8.4-10.2) mg/dL Total Bilirubin (0.2-1.3) mg/dL AST (14-36) U/L ALT (9-52) U/L Alkaline Phosphatase (38-126) U/L Total Protein (6.3-8.2) g/dL Albumin (3.5-5.0) g/dL Amylase (30-110) U/L Lipase (23-300) U/L Urine Color Urine Appearance (Clear) Urine pH (5.0-8.0) Ur Specific Davis (1.001-1.035) Urine Protein (Negative) Urine Glucose (UA) (Negative) Urine Ketones (Negative) Urine Blood (Negative) Urine Nitrite (Negative) Urine Bilirubin (Negative) Urine Urobilinogen (<2.0) mg/dL Ur Leukocyte Esterase (Negative) Urine HCG, Qual (Not Detectd) Disposition Clinical Impression: Exacerbation of Crohn's disease, Abdominal pain Disposition: ADMITTED IP TO THIS [facility] Condition: Stable Referrals: Madison Vick MD [Primary Care Provider] - 1-2 days
[2018-07-30 13:19] LABS: ALT 23 U/L (9-52); AST 13 U/L (14-36); Albumin 4.3 g/dL (3.5-5.0); Alkaline Phosphatase 76 U/L (38-126); Amylase 38 U/L (30-110); Anion Gap 11 mmol/L; Blood Urea Nitrogen 10 mg/dL (7-17); Calcium 9.8 mg/dL (8.4-10.2); Carbon Dioxide 19 mmol/L (22-30); Chloride 107 mmol/L (98-107); Glucose 108 mg/dL (74-99); Lipase 51 U/L (23-300); Sodium 137 mmol/L (137-145); Total Bilirubin 0.6 mg/dL (0.2-1.3); Total Protein 7.4 g/dL (6.3-8.2)
[2018-07-30 13:22] LABS: Appearance,Urine Clear (Clear); Bilirubin,Urine Negative (Negative); Blood,Urine Negative (Negative); Color,Urine Yellow; Glucose,Urine (UA) Negative (Negative); Ketones,Urine 3+ (Negative); Leukocyte Esterase,Urine Negative (Negative); Nitrite,Urine Negative (Negative); PH, Urine 5.5 (5.0-8.0); Protein,Urine Trace (Negative); Urobilinogen,Urine <2.0 mg/dL (<2.0)
--- NOTE | 2018-07-30 14:41 | CT ---
EXAMINATION TYPE: CT abdomen pelvis w con DATE OF EXAM: 07/30/2018 COMPARISON: 09/05/2012 HISTORY: Lower abdominal pain; history of Crohns disease and small bowel obstruction CT DLP: 513 mGycm Automated exposure control for dose reduction was used. CONTRAST: CT scan of the abdomen pelvis is performed with IV Contrast, patient injected with 100 ml mL of Isovu e 300. FINDINGS- LUNG BASES-there is a 2 mm nodule in the right lower lobe on axial image 6 and a 4 mm subpleural nodu le within the left lower lobe. Additional 2 mm nodule right lower lobe. Additional subpleural 2 mm no dule left lower lobe. Findings are stable from prior. LIVER/GB- No gross abnormality is appreciated. PANCREAS- No gross abnormality is seen. SPLEEN- No gross abnormality is seen. ADRENALS- No gross abnormality is seen. KIDNEYS/BLADDER-hypodensities involving the kidneys are too small to characterize but likely related to simple cyst. There is mild prominence of the right renal pelvis. No obvious calcification.. BOWEL-there is a severely thickened bowel wall segment involving the pelvis extending in the right lo wer quadrant representing terminal and distal margins of the ileum compatible severe inflammatory pro cess. Small amount of fluid in the pelvis also noted. Appendix extends superiorly beneath the lower m argin of the liver has a normal caliber and appearance. No obstruction. LYMPH NODES- No greater than 1cm abdominal or pelvic lymph nodes areappreciated. OSSEOUS STRUCTURES-hypertrophic and degenerative change of the spine. OTHER- aorta of normal caliber. Tiny fat-containing periumbilical hernia. IMPRESSION- 1. Dilated small bowel segment with severely thickened bowel wall within the pelvis and right abdomen appears to represent terminal ileum and long segmental involvement of the distal ileum extending at least 20 cm. Small amount of free fluid within the pelvis.. Findings are compatible with enteritis an d would be compatible with the patient's history of inflammatory bowel disease and active Crohn's dis ease. Inflammatory changes may be result in mild inflammatory change with regard to the right ureter resulting in mild pelvic caliectasis. Additionally, there is a small area of hyperdensity adjacent to the inflamed bowel loop which likely is vascular rather than representing extravasation or hemorrhag e as no significant oral contrast is seen within the region of the terminal ileum.. No free air. 2. Probable simple appearing renal cyst. 3. Stable pulmonary nodules. Given the stability since 2012 findings are compatible with benign nodul es.
[2018-07-30] MEDS ORDERED: SODIUM CHLORIDE 0.9% 1,000 ML IV ONE (14:48)
[2018-07-30 15:04] LABS: Basophils % (A) 0 %; Eosinophils # (A) 0.1 k/uL (0-0.7); Eosinophils % (A) 0 %; HCT 41.5 % (34.0-46.0); HGB 13.7 gm/dL (11.4-16.0); Lymphocytes # (A) 0.8 k/uL (1.0-4.8); Lymphocytes % (A) 4 %; MCH 30.8 pg (25.0-35.0); MCV 93.3 fL (80.0-100.0); Mean Platelet Volume 8.1; Monocytes # (A) 0.4 k/uL (0-1.0); Monocytes % (A) 2 %; Neutrophils # (A) 18.3 k/uL (1.3-7.7); Neutrophils % (A) 93 %; Platelet Count 271 k/uL (150-450); RBC 4.45 m/uL (3.80-5.40); RDW 12.6 % (11.5-15.5); WBC 19.7 k/uL (3.8-10.6)
[2018-07-30] MEDS ORDERED: methylPREDNISolone SOD SUCCI 125 MG/2 ML VIAL IV STA (15:18)
[2018-07-30] MEDS ORDERED: NALOXONE 0.4 MG/ML 1 ML VIAL IV PRN (15:20)
[2018-07-30] MEDS ORDERED: ONDANSETRON 4 MG/2 ML VIAL IVP PRN (15:20)
[2018-07-30] MEDS ORDERED: HYDROcodone/APAP 5-325MG 1 EACH TAB PO PRN (15:20)
[2018-07-30] MEDS: SODIUM CHLORIDE 0.9% 1,000 ML IV SCH (15:50)
[2018-07-30] MEDS: MORPHINE SULFATE 4 MG/ML SYRINGE IV PRN ×2 (16:54→21:03)
[2018-07-30] MEDS: HEPARIN SODIUM,PORCINE 5,000 UNIT/ML 1 ML VIAL SQ SCH (23:27)
[2018-07-31] MEDS ORDERED: ALBUTEROL NEBULIZED 2.5 MG/3 ML INHALATION PRN (00:59)
--- NOTE | 2018-07-31 01:03 | P.HPIM ---
History of Present Illness H&P Date: 07/30/18 Chief Complaint: Abdominal pain Patient is a 32-year-old female with a known history of Crohn's disease diagnosed in 2013 currently on Remicade for the past 2 years and hypoglycemic episodes history came to ER with complaints of abdominal pain along with nausea and vomiting. Patient says that her pain is consistent with previous Crohn's disease flareup. Denied any diarrhea or blood in the stools. Denied any dysuria or hematuria. Patient says that she did not have any flareups since starting of Remicade. Follows with Dr. Rodriguez as outpatient. Denied any fever or chills. No chest pain or shortness of breath. No headache or dizziness or lightheadedness. Denied any recent colonoscopy. Patient does smoke an daily basis. CT of abdomen pelvis showed dilated small bowel segment with severely thickened wall within pelvis and right abdomen to represent terminal ileum, findings compatible with enteritis with history of inflammatory bowel disease, active Crohn's disease. WBC 19.7 Review of Systems Constitutional: Patient denies any fever or chills . No generalized weakness or weight loss. Abdomen: Abdominal pain with nausea and vomiting. No diarrhea. Cardiovascular: Patient denies any chest pain or short of breath no palpitations. Respiratory: patient denied any cough is from production. No shortness of yareli ath Neurologic: Patient denied any numbness or tingling headache. Musculoskeletal: Patient denies any complaints of joint swelling or deformity. Skin: Negative Psychiatric: Negative Endocrine: No heat or cold intolerance. No recent weight gain. Genitourinary: No dysuria or hematuria. All other 14 point ROS negative except the above Past Medical History Past Medical History: No Reported History Additional Past Medical History / Comment(s): Crohn's, bowel obstructions, hypoglycemia History of Any Multi-Drug Resistant Organisms: None Reported Past Surgical History: Adenoidectomy, Section Additional Past Surgical History / Comment(s): Colonoscopy Past Anesthesia/Blood Transfusion Reactions: No Reported Reaction Smoking Status: Current every day smoker - Past Family History Mother Family Medical History: No Reported History Additional Family Medical History / Comment(s): Mother is healthy Father History Unknown: Yes Additional Family Medical History / Comment(s): Pt does not know her father. Medications and Allergies Home Medications Medication Instructions Recorded Confirmed Type Albuterol Sulfate [Ventolin HFA] 1 puff INHALATION RT-QID PRN 09/18/14 07/30/18 History inFLIXimab [Remicade] 100 mg IV Q60D 08/06/15 07/30/18 History Acetaminophen Tab [Tylenol Tab] 1,000 mg PO Q6HR PRN 10/04/17 07/30/18 History Allergies Allergy/AdvReac Type Severity Reaction Status Date / Time No Known Allergies Allergy Verified 07/30/18 12:02 Physical Exam Vitals: Vital Signs Temp Pulse Pulse Resp BP BP Pulse Ox 07/30/18 21:21 98.1 F 71 16 106/67 96 07/30/18 16:15 98.1 F 70 16 94/55 94 L 07/30/18 15:56 97.7 F 73 16 94/58 100 07/30/18 11:45 97.8 F 75 18 118/81 100 Intake and Output 07/30/18 07/30/18 07/30/18 06:59 14:59 22:59 Intake Total 350 Balance 350 Intake: Intake, IV Titration 350 Amount Sodium Chloride 0.9% 1, 350 000 ml @ 100 mls/hr IV . Q10H [facility] Rx#:[id number] Other: Weight 54.431 kg PHYSICAL EXAMINATION: Patient is lying in the bed comfortably, no acute distress, awake alert and oriented.. HEENT: Normocephalic. Neck is supple. Pupils reactive. Nostrils clear. Oral cavity is moist. Ears reveal no drainage. Neck reveals no JVD, carotid bruits, or thyromegaly. CHEST EXAMINATION: Trachea is central. Symmetrical expansion. Lung sidhu clear to auscultation and percussion. CARDIAC: Normal S1, S2 with no gallops. No murmurs ABDOMEN: Soft. Lower abdominal tenderness. No guarding no rigidity. Bowel sounds normal. No organomegaly. No abdominal bruits. Extremities: reveal no edema. No clubbing or cyanosis Neurologically awake, alert, oriented x3 with well-coordinated movements. No focal deficits noted Skin: No rash or skin lesions. Psychiatric: Coperative. Nonsuicidal Musculoskeletal: No joint swelling or deformity. Normal range of motion. Results CBC & Chem 7: 07/30/18 14:53 07/30/18 13:02 Labs: Abnormal Lab Results - Last 24 Hours (Table) 07/30/18 07/30/18 07/30/18 Range/Units 13:00 13:02 14:53 WBC 19.7 H (3.8-10.6) k/uL Neutrophils # 18.3 H (1.3-7.7) k/uL Lymphocytes # 0.8 L (1.0-4.8) k/uL Carbon Dioxide 19 L (22-30) mmol/L Creatinine 0.46 L (0.52-1.04) mg/dL Glucose 108 H (74-99) mg/dL AST 13 L (14-36) U/L Urine Protein Trace H (Negative) Urine Ketones 3+ H (Negative) Thrombosis Risk Factor Assmnt - DVT/VTE Prophylaxis DVT/VTE Prophylaxis: Pharmacologic Prophylaxis ordered - Choose All That Apply Any of the Below Risk Factors Present?: Yes Each Factor Represents 1 point: Hx of IBD Other Risk Factors: No Other congenital or acquired thrombophilia - If yes, enter type in comment: No Thrombosis Risk Factor Assessment Total Risk Factor Score: 1 Thrombosis Risk Factor Assessment Level: Low Risk Assessment and Plan Assessment: Acute Crohn's disease flareup Abdominal pain and thickening of the bowel involving terminal ileum Leukocytosis with WBC count 19.7 History of bowel obstruction Hypoglycemia history Nicotine addiction DVT prophylaxis with heparin subcu Plan: Patient be continued on IV hydration and pain management. Nothing by mouth. Current with IV steroids and GI consult. Follow-up CBC and BMP. Remicade has been held at this time. Further recommendations based on the clinical course. Smoking cessation has been counseled extensively. Time with Patient: Greater than 30
[2018-07-31] MEDS: MORPHINE SULFATE 4 MG/ML SYRINGE IV PRN ×6 (01:18→23:08)
[2018-07-31] MEDS: SODIUM CHLORIDE 0.9% 1,000 ML IV SCH ×3 (01:19→21:29)
[2018-07-31 07:23] LABS: Basophils % (A) 0 %; Eosinophils % (A) 0 %; HCT 35.9 % (34.0-46.0); HGB 11.6 gm/dL (11.4-16.0); Lymphocytes # (A) 1.3 k/uL (1.0-4.8); Lymphocytes % (A) 11 %; MCH 30.4 pg (25.0-35.0); MCHC 32.2 g/dL (31.0-37.0); MCV 94.4 fL (80.0-100.0); Mean Platelet Volume 7.5; Monocytes # (A) 0.3 k/uL (0-1.0); Monocytes % (A) 3 %; Neutrophils % (A) 85 %; Platelet Count 263 k/uL (150-450); RDW 12.7 % (11.5-15.5); WBC 11.8 k/uL (3.8-10.6)
[2018-07-31 07:36] LABS: Anion Gap 6 mmol/L; Blood Urea Nitrogen 7 mg/dL (7-17); Calcium 8.5 mg/dL (8.4-10.2); Carbon Dioxide 20 mmol/L (22-30); Chloride 111 mmol/L (98-107); Glucose 87 mg/dL (74-99); Potassium 3.9 mmol/L (3.5-5.1); Sodium 137 mmol/L (137-145)
[2018-07-31] MEDS: HEPARIN SODIUM,PORCINE 5,000 UNIT/ML 1 ML VIAL SQ SCH ×3 (08:04→23:06)
[2018-07-31] MEDS: PANTOPRAZOLE 40 MG/10 ML VIAL IV SCH (08:04)
--- NOTE | 2018-07-31 13:18 | P.CONS ---
History of Present Illness - Reason for Consult Consult date: 07/31/18 Crohn's exacerbation Requesting physician: Chuck Mills - Chief Complaint Abdominal pain nausea vomiting - History of Present Illness 32-year-old female with a history of Crohn's ileocolitis diagnosed in 2004 maintained on Remicade presents with lower abdominal pain 1 week intractable nausea vomiting decreased bowel movements were last few days. Denies documented fever chills hematemesis hematochezia or melena. Remicade infusion is scheduled 08/02/2018. CT abdomen and pelvis reported dilated small bowel segment with severely thickened bowel within the pelvis and right abdomen appears to represent terminal ileum and long segment involving the distal ileum extending at least 20 cm. Findings compatible with enteritis and history of IBD. Inflammatory rivera es may result admitted inflammatory change with regard to the right ureter resulting in mild pelvic caliectasis. Small area of hyperdensity adjacent to the inflamed bowel loop which is likely vascular rather than represent extravasation or hemorrhage. No significant oral contrast is seen within the region of the terminal ileum. No free air. Presently she feels better. Abdominal pain still present but improved. No emesis today. Admission white count 19.7 presently 11.8. Hemoglobin 11.6. CRP 23.4. BUN 10. Creatinine 0.4. HCG not detected. Last colonoscopy was in 2016 with evidence of mild ileitis rectal polypectomy no active colitis. No recent antibiotics. Review of Systems Constitutional: Denies fever, chills, sweats, weight gain, or loss. HEENT: Negative for migraines, blurred vision or loss, earaches, drainage, tinnitus, oral mucosal lesions, dysphagia, or odynophagia. CARDIAC: Negative for chest pain, arrhythmias, or palpitation. RESPIRATORY: Negative for shortness of breath, hemoptysis, cough, or sputum production. GI: See HPI for pertinent findings. : Negative for hematuria, urgency, frequency, polyuria, or dysuria. GYNc: Denies possibility of . Negative vaginal discharge. MUSCULOSKELETAL: Negative for muscle aches, swelling, arthritis, and arthralgias. NEUROLOGIC: Negative for stroke or TIA. ENDOCRINE: Negative for thyroid problems. SKIN: Negative for rash or itching. PSYCHIATRIC: Negative history for depression and anxiety Past Medical History Past Medical History: No Reported History Additional Past Medical History / Comment(s): Crohn's, bowel obstructions, hypoglycemia History of Any Multi-Drug Resistant Organisms: None Reported Past Surgical History: Adenoidectomy, Section Additional Past Surgical History / Comment(s): Colonoscopy Past Anesthesia/Blood Transfusion Reactions: No Reported Reaction Smoking Status: Current every day smoker - Past Family History Mother Family Medical History: No Reported History Additional Family Medical History / Comment(s): Mother is healthy Father History Unknown: Yes Additional Family Medical History / Comment(s): Pt does not know her father. Medications and Allergies Home Medications Medication Instructions Recorded Confirmed Type Albuterol Sulfate [Ventolin HFA] 1 puff INHALATION RT-QID PRN 09/18/14 07/30/18 History inFLIXimab [Remicade] 100 mg IV Q60D 08/06/15 07/30/18 History Acetaminophen Tab [Tylenol Tab] 1,000 mg PO Q6HR PRN 10/04/17 07/30/18 History Allergies Allergy/AdvReac Type Severity Reaction Status Date / Time No Known Allergies Allergy Verified 07/30/18 12:02 Physical Exam Vitals: Vital Signs Temp Pulse Pulse Resp BP BP Pulse Ox 07/31/18 12:20 98.2 F 79 20 97/64 98 07/31/18 04:51 98.6 F 81 15 100/59 99 07/31/18 04:16 72 07/31/18 04:07 72 07/30/18 21:21 98.1 F 71 16 106/67 96 07/30/18 16:15 98.1 F 70 16 94/55 94 L 07/30/18 15:56 97.7 F 73 16 94/58 100 Intake and Output 07/30/18 07/31/18 07/31/18 22:59 06:59 14:59 Intake Total 350 800 Balance 350 800 Intake: Intake, IV Titration 350 800 Amount Sodium Chloride 0.9% 1, 350 800 000 ml @ 100 mls/hr IV . Q10H [facility] Rx#:[id number] Other: # Voids 2 2 General appearance: The patient is alert, oriented, in no acute distress. HET: Head is normocephalic and atraumatic. Pupils are equal and reactive. Oropharynx is clear without lesions. Neck: Supple without lymphadenopathy. Trachea midline. Heart: S1 S2. Regular rate and rhythm. Lungs: No crackles or wheezes are heard. Abdomen: Soft, bilateral lower abdominal mild tenderness with hypoactive bowel sounds nondistended. No peritoneal signs. No palpable organomegaly or masses. Extremities: Normal skin color and turgor. No cyanosis, rash, ulceration, clubb ing, or edema. Radial and pedal pulses are 2/4 bilaterally. Neurological: No focal deficits. Strength and sensation are grossly intact. Results CBC & Chem 7: 07/31/18 07:10 07/31/18 07:10 Labs: Abnormal Lab Results - Last 24 Hours (Table) 07/30/18 07/30/18 07/30/18 Range/Units 13:00 13:02 14:53 WBC 19.7 H (3.8-10.6) k/uL Neutrophils # 18.3 H (1.3-7.7) k/uL Lymphocytes # 0.8 L (1.0-4.8) k/uL Chloride (98-107) mmol/L Carbon Dioxide 19 L (22-30) mmol/L Creatinine 0.46 L (0.52-1.04) mg/dL Glucose 108 H (74-99) mg/dL AST 13 L (14-36) U/L C-Reactive Protein (<10.0) mg/L Urine Protein Trace H (Negative) Urine Ketones 3+ H (Negative) 07/31/18 07/31/18 07/31/18 Range/Units 07:10 07:10 07:10 WBC 11.8 H (3.8-10.6) k/uL Neutrophils # 10.0 H (1.3-7.7) k/uL Lymphocytes # (1.0-4.8) k/uL Chloride 111 H (98-107) mmol/L Carbon Dioxide 20 L (22-30) mmol/L Creatinine 0.46 L (0.52-1.04) mg/dL Glucose (74-99) mg/dL AST (14-36) U/L C-Reactive Protein 23.4 H (<10.0) mg/L Urine Protein (Negative) Urine Ketones (Negative) CT scan - abdomen: report reviewed (Dr. German) Assessment and Plan (1) Exacerbation of Crohn's disease of small intestine Narrative/Plan: 32-year-old female long-standing history of Crohn's ileocolitis presents with leukocytosis intractable nausea vomiting lower abdominal pain [address] imaging reported long segment of distal small bowel ileum inflammation possible partial small bowel obstruction without extravasation abscess or pneumoperitoneum. Underlying small bowel stricture disease cannot be excluded. Current Visit: Yes Status: Acute Code(s): K50.00 - CROHN'S DISEASE OF SMALL INTESTINE WITHOUT COMPLICATIONS SNOMED Code(s): 107601600 Plan: 1. Clear liquids. Do not advance. CRP CBC BMP daily. IV Solu-Medrol 40 mg every 8 hours. Outpatient follow-up in 2 weeks for discussion of outpatient colonoscopy. We'll follow closely with you. Thank you for this kind referral and the opportunity to participate in the care of your patient. This consultation was discussed with Dr. German. The impression and plan of care have been directed as dictated.
[2018-07-31 15:52] VITALS: BMI 21.2
[2018-07-31] MEDS: methylPREDNISolone SOD SUCCI 40 MG/ML 1 ML VIAL IV SCH ×2 (16:10→23:06)
[2018-07-31 20:38] VITALS: RESP 16
[2018-08-01] MEDS: MORPHINE SULFATE 4 MG/ML SYRINGE IV PRN ×3 (03:14→12:08)
[2018-08-01] MEDS: PANTOPRAZOLE 40 MG/10 ML VIAL IV SCH (07:42)
[2018-08-01] MEDS: methylPREDNISolone SOD SUCCI 40 MG/ML 1 ML VIAL IV SCH (07:42)
[2018-08-01] MEDS: HEPARIN SODIUM,PORCINE 5,000 UNIT/ML 1 ML VIAL SQ SCH (07:42)
[2018-08-01] MEDS: SODIUM CHLORIDE 0.9% 1,000 ML IV SCH (07:45)
[2018-08-01 09:12] LABS: Basophils % (A) 0 %; Eosinophils # (A) 0.1 k/uL (0-0.7); Eosinophils % (A) 1 %; HGB 11.9 gm/dL (11.4-16.0); Lymphocytes # (A) 1.5 k/uL (1.0-4.8); Lymphocytes % (A) 19 %; MCH 29.8 pg (25.0-35.0); MCHC 31.2 g/dL (31.0-37.0); MCV 95.3 fL (80.0-100.0); Mean Platelet Volume 8.4; Monocytes # (A) 0.3 k/uL (0-1.0); Monocytes % (A) 3 %; Neutrophils # (A) 6.3 k/uL (1.3-7.7); Neutrophils % (A) 77 %; Platelet Count 245 k/uL (150-450); RBC 3.99 m/uL (3.80-5.40); RDW 13.1 % (11.5-15.5); WBC 8.3 k/uL (3.8-10.6)
--- NOTE | 2018-08-01 09:45 | P.PN ---
Subjective Progress Note Date: 08/01/18 Principal diagnosis: crohn's exacerbation Feels better passing flatus no BM. Requesting diet advancement. Afebrile. WBC WNL. CRP improved to 11. Objective - Vital Signs Vital signs: Vital Signs Temp 98.5 F 08/01/18 05:11 Pulse 67 08/01/18 05:11 Resp 16 08/01/18 05:11 BP 123/77 08/01/18 05:11 Pulse Ox 96 08/01/18 05:11 Intake & Output 07/31/18 08/01/18 08/01/18 18:59 06:59 18:59 Intake Total 580 1150 600 Balance 580 1150 600 Weight 54.431 kg Intake: Intake, IV Titration 1150 Amount Sodium Chloride 0.9% 1, 1150 000 ml @ 100 mls/hr IV . Q10H [facility] Rx#:[id number] Oral 580 600 Other: Voiding Method Toilet # Voids 1 2 - Constitutional General appearance: Present: no acute distress - EENT Eyes: Present: normal appearance ENT: Present: normal oropharynx Ears: bilateral: normal - Neck Neck: Present: normal ROM - Respiratory Respiratory: bilateral: CTA - Cardiovascular Heart sounds: normal: S1, S2 - Gastrointestinal Gastrointestinal Comment(s): very mild bilateral lower abdominal tenderness normal bowel sounds no R/G General gastrointestinal: Present: soft - Integumentary Integumentary: Present: normal turgor - Neurologic Neurologic: Present: CNII-XII intact - Labs CBC & Chem 7: 08/01/18 08:26 07/31/18 07:10 Labs: Abnormal Lab Results - Last 24 Hours (Table) 07/31/18 08/01/18 Range/Units 07:10 08:26 C-Reactive Protein 23.4 H 11.7 H (<10.0) mg/L Assessment and Plan (1) Exacerbation of Crohn's disease of small intestine Narrative/Plan: 32-year-old female long-standing history of Crohn's ileocolitis presents with leukocytosis intractable nausea vomiting lower abdominal pain [address] imaging reported long segment of distal small bowel ileum inflammation possible partial small bowel obstruction without extravasation abscess or pneumoperitoneum. Underlying small bowel stricture disease cannot be excluded. Current Visit: Yes Status: Acute Code(s): K50.00 - CROHN'S DISEASE OF SMALL INTESTINE WITHOUT COMPLICATIONS SNOMED Code(s): 684432945 Plan: 1. Overall feels better biochemical improvement. Full liquids/soft GI diet. DC IV steroids; prednisone 40 mg daily with 5 mg taper every 7 days. Remicade infusion tomorrow. Outpatient follow-up in 2 weeks for discussion of outpatient colonoscopy. Agreeable for DC per medicine. Assessment and plan of care discussed with Dr. German
[2018-08-01 12:19] VITALS: BP 129/72; PULSE 68; TEMP 98.4
[2018-08-02] MEDS ORDERED: PANTOPRAZOLE 40 MG TABLET PO SCH (09:00)
== END 2018-08-01 14:15 | disposition home or self-care (01) | DRG 387 ==
LOC: EC 11:27 → 3NMEDONC 15:22
PROVIDERS: ADMIT Internal Medicine; ATTEND Internal Medicine
DX: K50.80 Crohn's disease of both small and large intestine without complications (principal); F17.210 Nicotine dependence, cigarettes, uncomplicated; Z98.891 History of uterine scar from previous surgery; Z86.010 Personal history of colon polyps; D72.829 Elevated white blood cell count, unspecified; Z79.899 Other long term (current) drug therapy
CPT/HCPCS: 36415; 74177; 80048; 80053; 81003; 81025; 82150; 83690; 85025; 86140; 94640; 96361; 96374; 96375; 99285

== ENCOUNTER → 2018-08-05 | Outpatient (CLI) | payer OTHER ==
[2018-08-05 11:27] VITALS: TEMP 98.1
[2018-08-05 11:54] VITALS: RESP 18
[2018-08-05 12:58] VITALS: BP 98/64; PULSE 61
== END ==
LOC: PROCWHC3 11:07
PROVIDERS: ATTEND Internal Medicine Gastroenterology
DX: K50.80 Crohn's disease of both small and large intestine without complications (principal)
CPT/HCPCS: 96413; 96415; Q5103

== ENCOUNTER 2018-08-24 14:55 | Inpatient (IN) | payer OTHER ==
[2018-08-24] MEDS ORDERED: ACETAMINOPHEN TAB 325 MG TAB PO PRN (15:27)
[2018-08-24] MEDS ORDERED: NALOXONE 0.4 MG/ML 1 ML VIAL IV PRN (15:27)
--- NOTE | 2018-08-24 15:27 | ED ---
Abdominal Pain HPI - General Chief Complaint: Abdominal Pain Stated Complaint: NVD Time Seen by Provider: 08/24/18 15:03 Source: patient, RN notes reviewed Mode of arrival: ambulatory Limitations: no limitations - History of Present Illness Initial Comments: 32-year-old female presented emergency Department with chief complaint of abdominal pain. Patient was transferred from [facility] for Crohn's exacerbation. Patient had CT, lab work, given Toradol, steroids. Patient states that she is improved from her nausea and vomiting she'll have mild discomfort. Patient denies any rectal bleeding. Patient states she sees Dr. oRdriguez for her Crohn's. Patient does currently take Remicade infusions. - Related Data Home Medications Medication Instructions Recorded Confirmed Albuterol Sulfate [Ventolin HFA] 1 puff INHALATION RT-QID PRN 09/18/14 07/30/18 inFLIXimab [Remicade] 100 mg IV Q60D 08/06/15 07/30/18 Acetaminophen Tab [Tylenol] 1,000 mg PO Q6HR PRN 10/04/17 07/30/18 Previous Rx's Medication Instructions Recorded predniSONE 0 mg PO DIRECTED #123 tab 08/01/18 Allergies Allergy/AdvReac Type Severity Reaction Status Date / Time No Known Allergies Allergy Verified 08/24/18 14:59 Review of Systems ROS Statement: Those systems with pertinent positive or pertinent negative responses have been documented in the HPI. ROS Other: All systems not noted in ROS Statement are negative. Past Medical History Past Medical History: No Reported History Additional Past Medical History / Comment(s): Crohn's, bowel obstructions, hypoglycemia History of Any Multi-Drug Resistant Organisms: None Reported Past Surgical History: Adenoidectomy, Section Additional Past Surgical History / Comment(s): Colonoscopy Past Anesthesia/Blood Transfusion Reactions: No Reported Reaction Past Psychological History: No Psychological Hx Reported Smoking Status: Current every day smoker Past Alcohol Use History: None Reported Past Drug Use History: Marijuana - Past Family History Mother Family Medical History: No Reported History Additional Family Medical History / Comment(s): Mother is healthy Father History Unknown: Yes Additional Family Medical History / Comment(s): Pt does not know her father. General Exam Limitations: no limitations General appearance: alert, in no apparent distress Head exam: Present: atraumatic, normocephalic, normal inspection Respiratory exam: Present: normal lung sounds bilaterally. Absent: respiratory distress, wheezes, rales, rhonchi, stridor Cardiovascular Exam: Present: regular rate, normal rhythm, normal heart sounds. Absent: systolic murmur, diastolic murmur, rubs, gallop, clicks GI/Abdominal exam: Present: soft, normal bowel sounds. Absent: distended, guarding, rebound, rigid Neurological exam: Present: alert, oriented X3, CN II-XII intact Skin exam: Present: warm, dry, intact, normal color. Absent: rash Course Vital Signs 08/24/18 14:57 Temperature 98.3 F Pulse Rate 78 Respiratory 18 Rate Blood Pressure 105/72 O2 Sat by Pulse 99 Oximetry Medical Decision Making - Medical Decision Making 32-year-old female presented for abdominal pain, Crohn's exacerbation. Patient be admitted for IV steroids, GI constipation. Patient is stable at this time IV fluids, pain medication ordered. Disposition Clinical Impression: Exacerbation of Crohn's disease of small intestine, Abdominal pain Disposition: ADMITTED IP TO THIS HOSP Condition: Fair Referrals: Madison Vick MD [Primary Care Provider] - 1-2 days
[2018-08-24] MEDS: HYDROcodone/APAP 5-325MG 1 EACH TAB PO PRN (15:58)
[2018-08-24] MEDS: SODIUM CHLORIDE 0.9% 1,000 ML IV SCH ×3 (15:58→23:58)
[2018-08-24] MEDS: methylPREDNISolone SOD SUCCI 125 MG/2 ML VIAL IV SCH ×2 (17:34→23:20)
[2018-08-24] MEDS ORDERED: ALBUTEROL NEBULIZED 2.5 MG/3 ML INHALATION PRN ×2 (19:21→19:31)
[2018-08-24] MEDS ORDERED: ALPRAZolam 0.25 MG TAB PO PRN (19:22)
[2018-08-24] MEDS: MORPHINE SULFATE 4 MG/ML SYRINGE IV PRN (19:40)
[2018-08-24] MEDS: ALBUTEROL NEBULIZED 2.5 MG/3 ML INHALATION SCH (19:42)
[2018-08-24] MEDS: HEPARIN SODIUM,PORCINE 5,000 UNIT/ML 1 ML VIAL SQ SCH (20:50)
--- NOTE | 2018-08-24 20:53 | XR ---
EXAMINATION TYPE: XR chest 1V portable DATE OF EXAM: 08/24/2018 COMPARISON: 07/20/2014 INDICATION: Difficulty breathing, wheezing TECHNIQUE: Single frontal view of the chest is obtained. FINDINGS: The heart size is normal. The pulmonary vasculature is normal. The lungs are clear. IMPRESSION: 1. No acute pulmonary process.
[2018-08-25] MEDS: MORPHINE SULFATE 4 MG/ML SYRINGE IV PRN ×6 (01:00→23:32)
[2018-08-25] MEDS: methylPREDNISolone SOD SUCCI 125 MG/2 ML VIAL IV SCH ×4 (05:33→23:32)
[2018-08-25] MEDS: ALBUTEROL NEBULIZED 2.5 MG/3 ML INHALATION SCH ×4 (08:07→19:34)
[2018-08-25 08:18] LABS: Anion Gap 6 mmol/L; Blood Urea Nitrogen 9 mg/dL (7-17); Calcium 9.1 mg/dL (8.4-10.2); Carbon Dioxide 24 mmol/L (22-30); Chloride 106 mmol/L (98-107); Glucose 121 mg/dL (74-99); Potassium 4.7 mmol/L (3.5-5.1); Sodium 136 mmol/L (137-145)
[2018-08-25 08:21] LABS: Basophils % (A) 0 %; Eosinophils # (A) 0.1 k/uL (0-0.7); Eosinophils % (A) 1 %; HCT 36.6 % (34.0-46.0); HGB 12.1 gm/dL (11.4-16.0); Lymphocytes % (A) 8 %; MCH 30.7 pg (25.0-35.0); MCHC 33.2 g/dL (31.0-37.0); MCV 92.3 fL (80.0-100.0); Mean Platelet Volume 8.2; Monocytes # (A) 0.2 k/uL (0-1.0); Monocytes % (A) 1 %; Neutrophils # (A) 10.4 k/uL (1.3-7.7); Neutrophils % (A) 89 %; Platelet Count 274 k/uL (150-450); RBC 3.96 m/uL (3.80-5.40); RDW 13.8 % (11.5-15.5); WBC 11.7 k/uL (3.8-10.6)
[2018-08-25 08:35] LABS: C Reactive Protein 16.5 mg/L (<10.0)
[2018-08-25] MEDS: HEPARIN SODIUM,PORCINE 5,000 UNIT/ML 1 ML VIAL SQ SCH ×2 (09:11→21:31)
[2018-08-25] MEDS: PANTOPRAZOLE 40 MG/10 ML VIAL IVP SCH (09:11)
[2018-08-25] MEDS: NICOTINE 14MG/24HR PATCH TRANSDERM SCH (09:11)
[2018-08-25] MEDS: SODIUM CHLORIDE 0.9% 1,000 ML IV SCH ×3 (09:12→21:57)
[2018-08-25 11:18] LABS: Erythrocyte Sedimentation Rate 4 mm/hr (0-20)
--- NOTE | 2018-08-25 19:53 | PN ---
PROGRESS NOTE DATE OF SERVICE: 08/25/2018 This 32-year-old woman who was admitted with Crohn's disease acute exacerbation is also complaining of abdominal pain. Patient is being closely monitored. No chest pain. No palpitations. No fever. EXAM: Alert and oriented x3. Pulse is 72, blood pressure 114/70, respirations 18, temperature 98 degrees, pulse ox 98% on room air. HEENT: Conjunctivae normal. NECK: No jugular venous distention. CARDIOVASCULAR: S1, S2. RESPIRATORY: Breath sounds diminished in the bases. A few scattered rhonchi and crackles. ABDOMEN: Soft. Mild diffuse tenderness. LEGS: No edema, no swelling. NERVOUS SYSTEM: No focal deficits. LAB STUDIES: WBC 11.7, sodium 136. ASSESSMENT: 1. Abdominal pain with acute Crohn's disease, acute exacerbation. 2. Increased WBC. 3. Hyponatremia mild. 4. Elevated C-reactive protein. 5. History of hypoglycemia. 6. Adenoidectomy. 7. History of section. 8. History of continued ongoing nicotine dependence. RECOMMENDATIONS AND DISCUSSION I recommend to continue current management and symptomatic treatment. Otherwise we will monitor the patient closely. Repeat labs. IV steroids. Patient is on clear liquids. Gastroenterology consultation. The patient is on IV fluids as well. Guarded prognosis. Further recommendations to follow. We will monitor the Accu-Cheks also. MMODL / IJN: [id number] /
[2018-08-25 22:13] LABS: Glucose,Whole Blood 140 mg/dL (75-99)
[2018-08-25] MEDS: INSULIN ASPART (NovoLOG) 100 UNIT/ML VIAL SQ SCH (22:17)
[2018-08-25] MEDS: TEMAZEPAM 15 MG CAP PO PRN (23:31)
[2018-08-26] MEDS: MORPHINE SULFATE 4 MG/ML SYRINGE IV PRN ×5 (03:38→20:54)
[2018-08-26] MEDS: methylPREDNISolone SOD SUCCI 125 MG/2 ML VIAL IV SCH ×3 (06:22→17:55)
[2018-08-26 06:52] LABS: Glucose,Whole Blood 128 mg/dL (75-99)
[2018-08-26 07:38] LABS: Basophils % (A) 0 %; Eosinophils % (A) 0 %; HGB 11.9 gm/dL (11.4-16.0); Lymphocytes # (A) 0.9 k/uL (1.0-4.8); Lymphocytes % (A) 7 %; MCH 29.7 pg (25.0-35.0); MCV 92.8 fL (80.0-100.0); Mean Platelet Volume 7.8; Monocytes # (A) 0.4 k/uL (0-1.0); Monocytes % (A) 3 %; Neutrophils # (A) 11.9 k/uL (1.3-7.7); Neutrophils % (A) 89 %; Platelet Count 270 k/uL (150-450); RBC 3.99 m/uL (3.80-5.40); RDW 13.7 % (11.5-15.5); WBC 13.3 k/uL (3.8-10.6)
[2018-08-26 07:58] LABS: Anion Gap 7 mmol/L; Blood Urea Nitrogen 10 mg/dL (7-17); Calcium 9.2 mg/dL (8.4-10.2); Carbon Dioxide 25 mmol/L (22-30); Chloride 106 mmol/L (98-107); Glucose 120 mg/dL (74-99); Potassium 4.8 mmol/L (3.5-5.1); Sodium 138 mmol/L (137-145)
[2018-08-26] MEDS: INSULIN ASPART (NovoLOG) 100 UNIT/ML VIAL SQ SCH ×4 (08:02→20:45)
[2018-08-26] MEDS: ALBUTEROL NEBULIZED 2.5 MG/3 ML INHALATION SCH ×4 (08:09→18:59)
[2018-08-26] MEDS: PANTOPRAZOLE 40 MG/10 ML VIAL IVP SCH (08:20)
[2018-08-26] MEDS: HEPARIN SODIUM,PORCINE 5,000 UNIT/ML 1 ML VIAL SQ SCH ×2 (08:21→20:45)
[2018-08-26] MEDS: NICOTINE 14MG/24HR PATCH TRANSDERM SCH (08:21)
[2018-08-26] MEDS: SODIUM CHLORIDE 0.9% 1,000 ML IV SCH ×2 (08:25→16:47)
[2018-08-26 10:56] LABS: Glucose,Whole Blood 137 mg/dL (75-99)
[2018-08-26] MEDS: HYDROcodone/APAP 5-325MG 1 EACH TAB PO PRN (12:22)
--- NOTE | 2018-08-26 13:35 | P.CONS ---
History of Present Illness - Reason for Consult Consult date: 08/25/18 Crohn's exacerbation - History of Present Illness 32-year-old female with history of Crohn's disease presented to the Emergency Department with chief complaint of abdominal pain that Progressed over several days and stopped having bowel movements then started to complain of nausea and vomiting.. She was admitted for Crohn's exacerbation. She had CT, lab work, given Toradol and was started on steroids. Her nausea and vomiting has improved and continues to have some abdominal discomfort. Patient denies any rectal bl eeding. Patient follows with Dr. Ruffin for her Crohn's and is maintained on Remicade infusions. Review of Systems CONSTITUTIONAL: Denies any fevers, chills, weight change or fatigue. CARDIOVASCULAR: Denies any chest pain, palpitations high or low blood pressures RESPIRATORY: Denies any shortness of breath, hemoptysis or cough. GENITOURINARY: No dysuria or hematuria. MUSCULOSKELETAL: No weakness reported. SKIN: Denies any new rashes or lesions, jaundice or pallor. PSYCHIATRIC: Denies any depression or anxiety. NEUROLOGY: Denies headache, denies any new focal deficits. EARS/NOSE/THROAT: No recent hearing change, congestion, nasal discharge or sore throat. EYES: No pain in eyes, discharge or change in vision. GASTROINTESTINAL: As per HPI. Past Medical History Past Medical History: No Reported History Additional Past Medical History / Comment(s): Crohn's, bowel obstructions, hypoglycemia History of Any Multi-Drug Resistant Organisms: None Reported Past Surgical History: Adenoidectomy, Section Additional Past Surgical History / Comment(s): Colonoscopy Past Anesthesia/Blood Transfusion Reactions: No Reported Reaction Past Psychological History: No Psychological Hx Reported Additional Psychological History / Comment(s): Pt resides with her mother and is independent. Smoking Status: Current every day smoker Past Alcohol Use History: None Reported Additional Past Alcohol Use History / Comment(s): Pt started smoking in 1998 and a pack will last her 2 days. Past Drug Use History: Marijuana Additional Drug Use History / Comment(s): DAILY MEDICAL MARIJUANA USE, 1-2 j oints a day - Past Family History Mother Family Medical History: No Reported History Additional Family Medical History / Comment(s): Mother is healthy Father History Unknown: Yes Additional Family Medical History / Comment(s): Pt does not know her father. Medications and Allergies Home Medications Medication Instructions Recorded Confirmed Type Albuterol Sulfate [Ventolin HFA] 1 puff INHALATION RT-BID PRN 09/18/14 08/24/18 History Acetaminophen Tab [Tylenol] 500 mg PO Q6HR PRN 10/04/17 08/24/18 History Allergies Allergy/AdvReac Type Severity Reaction Status Date / Time No Known Allergies Allergy Verified 08/24/18 15:36 Physical Exam Vitals: Vital Signs Temp Pulse Pulse Resp BP BP Pulse Ox 08/25/18 12:07 98.0 F 69 18 114/71 99 08/25/18 11:52 72 08/25/18 11:41 64 08/25/18 08:19 72 08/25/18 08:07 68 08/25/18 05:29 98.0 F 63 16 103/72 96 08/24/18 23:25 56 L 89/56 08/24/18 21:00 97.4 F L 57 L 16 93/54 96 08/24/18 19:45 62 08/24/18 19:38 62 08/24/18 16:08 98.3 F 62 16 99/68 94 L 08/24/18 14:57 98.3 F 78 18 105/72 99 Intake and Output 08/24/18 08/25/18 08/25/18 22:59 06:59 14:59 Intake Total 300 1270 Balance 300 1270 Intake: Intake, IV Titration 100 680 Amount Sodium Chloride 0.9% 1, 100 680 000 ml @ 125 mls/hr IV . Q8H [facility] Rx#:[id number] Oral 200 590 Other: Voiding Method Toilet # Voids 1 1 On physical examination, patient appears very pleasant, stated age in no apparent distress. HEAD: Normocephalic, atraumatic. EYES: No scleral icterus. No conjunctival injection. MOUTH: No lesions, tongue midline. NECK: Trachea midline, no gross abnormalities. CHEST: Clear to auscultation with no wheezing or rhonchi appreciated. HEART: Regular, no abnormal solids, murmurs or friction rubs. ABDOMEN: Soft. Bowel sounds are positive. No organomegaly. No guarding or rigidity. EXTREMITIES: No pedal edema. SKIN: No rashes, no jaundice. NEUROLOGIC: Alert and oriented. No focal deficits. Results CBC & Chem 7: 08/26/18 07:12 04/08/19 07:12 Labs: Abnormal Lab Results - Last 24 Hours (Table) 08/25/18 08/25/18 Range/Units 07:05 07:05 WBC 11.7 H (3.8-10.6) k/uL Neutrophils # 10.4 H (1.3-7.7) k/uL Sodium 136 L (137-145) mmol/L Creatinine 0.43 L (0.52-1.04) mg/dL Glucose 121 H (74-99) mg/dL C-Reactive Protein 16.5 H (<10.0) mg/L Assessment and Plan Assessment: Picture consistent with exacerbation of Crohn's disease. Should consider intestinal obstruction if her symptoms recur or worsen. Plan: I agree with your current management. We will follow with you closely and make additional adjustments based on her course.
[2018-08-26 16:46] LABS: Glucose,Whole Blood 139 mg/dL (75-99)
--- NOTE | 2018-08-26 19:40 | PN ---
PROGRESS NOTE DATE OF SERVICE: 08/26/2018 This 32-year-old was admitted with abdominal pain, acute exacerbation. On IV steroids. Gastroenterology following the patient. No chest pain. No palpitations. No fever. EXAM: Alert and oriented times three. Pulse 67, blood pressure 129/71, respirations 16, temp 98.2, pulse ox 98% on room air. HEENT: Conjunctivae normal. NECK: No jugular venous distention. CARDIOVASCULAR: S1, S2 muffled. RESPIRATORY: Breath sounds diminished in the bases. A few scattered rhonchi. Abdomen is soft. Mild diffuse tenderness. Legs: No edema, no swelling. CENTRAL NERVOUS SYSTEM: No focal deficits. LAB STUDIES: WBC 13.3 and Accu-Cheks are noted. ASSESSMENT: 1. Abdominal pain with acute Crohn's disease, acute exacerbation. 2. Increased WBC. 3. Hyponatremia mild. 4. Elevated CRP. 5. History of hypoglycemia. 6. History of adenoidectomy. 7. History of Caesarean section. 8. History of continued ongoing nicotine dependence. RECOMMENDATIONS AND DISCUSSION: Recommend to continue current medications, symptomatic treatment. Continue with the diet. Continue with IV steroids. Closely follow with Gastroenterology. Guarded prognosis. Further recommendations to follow. MMODL / IJN: [id number] / MTDD
[2018-08-26 20:31] LABS: Glucose,Whole Blood 144 mg/dL (75-99)
[2018-08-26] MEDS: TEMAZEPAM 15 MG CAP PO PRN (20:54)
--- NOTE | 2018-08-26 21:28 | P.PN ---
Subjective Progress Note Date: 08/26/18 Principal diagnosis: Acute exacerbation of Crohn's disease, abdominal pain Patient reports feeling somewhat better. Tolerating liquids and asking for diet to be advanced. No nausea or vomiting. Objective - Vital Signs Vital signs: Vital Signs Temp 98.2 F 08/26/18 11:51 Pulse 61 08/26/18 19:09 Resp 18 08/26/18 19:09 BP 121/79 08/26/18 11:51 Pulse Ox 98 08/26/18 11:51 Intake & Output 08/26/18 08/26/18 08/27/18 06:59 18:59 06:59 Intake Total 1370 900 Balance 1370 900 Intake: Intake, IV Titration 650 900 Amount Sodium Chloride 0.9% 1, 650 900 000 ml @ 125 mls/hr IV . Q8H [facility] Rx#:[id number] Oral 720 Other: Voiding Method Toilet Toilet # Voids 1 - Exam On physical examination, patient appears comfortable in no apparent distress. HEAD: Normocephalic, atraumatic. EYES: No scleral icterus. No conjunctival injection. MOUTH: No lesions, tongue midline. NECK: Trachea midline, no gross abnormalities. CHEST: Clear to auscultation with no wheezing or rhonchi appreciated. HEART: Regular rate and rhythm. ABDOMEN: Soft, obese. Bowel sounds are positive. No organomegaly. No guarding or rigidity. EXTREMITIES: No pedal edema. SKIN: No rashes, no jaundice. NEUROLOGIC: Alert and oriented x3. No focal deficits. - Labs CBC & Chem 7: 08/26/18 07:12 08/26/18 07:12 Labs: Abnormal Lab Results - Last 24 Hours (Table) 08/25/18 08/26/18 08/26/18 Range/Units 22:11 06:51 07:12 WBC 13.3 H (3.8-10.6) k/uL Neutrophils # 11.9 H (1.3-7.7) k/uL Lymphocytes # 0.9 L (1.0-4.8) k/uL Creatinine (0.52-1.04) mg/dL Glucose (74-99) mg/dL POC Glucose (mg/dL) 140 H 128 H (75-99) mg/dL 04/08/19 04/08/19 04/08/19 Range/Units 07:12 10:55 16:44 WBC (3.8-10.6) k/uL Neutrophils # (1.3-7.7) k/uL Lymphocytes # (1.0-4.8) k/uL Creatinine 0.44 L (0.52-1.04) mg/dL Glucose 120 H (74-99) mg/dL POC Glucose (mg/dL) 137 H 139 H (75-99) mg/dL 08/26/18 Range/Units 20:30 WBC (3.8-10.6) k/uL Neutrophils # (1.3-7.7) k/uL Lymphocytes # (1.0-4.8) k/uL Creatinine (0.52-1.04) mg/dL Glucose (74-99) mg/dL POC Glucose (mg/dL) 144 H (75-99) mg/dL Assessment and Plan (1) Exacerbation of Crohn's disease of small intestine Narrative/Plan: Patient who reports a two-year history of Crohn's disease which she believes is limited to the small bowel, currently on biologic therapy with Remicade and denying any history of complicated disease who presented with numerous complaints including abdominal pain and was found to have elevation of her CRP at 16.5, with normal ESR. Patient has been started on treatment for an acute exacerbation of her Crohn's disease Current Visit: Yes Status: Acute Code(s): K50.00 - CROHN'S DISEASE OF SMALL INTESTINE WITHOUT COMPLICATIONS SNOMED Code(s): 850206042 Plan: Supportive care Diet advance to full liquids, advance to a GI soft as tolerated Continue IV Solu-Medrol, we'll switch to oral therapy as patient's symptoms improved Patient will need to be discharged on tapering dose of steroids Continue treatment with Remicade every 8 weeks as an outpatient Follow up with Dr. Ruffin of the gastroenterology service with consideration for repeat colonoscopy Repeat CRP ordered Thank you for allowing us to participate in the care of the patient we will continue to follow
[2018-08-26 22:26] VITALS: RESP 16
[2018-08-27] MEDS: SODIUM CHLORIDE 0.9% 1,000 ML IV SCH ×2 (00:03→07:58)
[2018-08-27] MEDS: methylPREDNISolone SOD SUCCI 125 MG/2 ML VIAL IV SCH ×2 (00:03→06:27)
[2018-08-27] MEDS: MORPHINE SULFATE 4 MG/ML SYRINGE IV PRN ×2 (02:43→08:02)
[2018-08-27 04:33] VITALS: TEMP 97.9
[2018-08-27 05:04] VITALS: PULSE 45
[2018-08-27 06:04] VITALS: BP 146/91
[2018-08-27 07:11] LABS: Glucose,Whole Blood 132 mg/dL (75-99)
[2018-08-27] MEDS: NICOTINE 14MG/24HR PATCH TRANSDERM SCH (07:56)
[2018-08-27] MEDS: INSULIN ASPART (NovoLOG) 100 UNIT/ML VIAL SQ SCH ×2 (07:57→11:14)
[2018-08-27] MEDS: HEPARIN SODIUM,PORCINE 5,000 UNIT/ML 1 ML VIAL SQ SCH (07:57)
[2018-08-27] MEDS: PANTOPRAZOLE 40 MG/10 ML VIAL IVP SCH (07:57)
[2018-08-27 08:00] LABS: Basophils % (A) 0 %; Eosinophils % (A) 0 %; HCT 37.7 % (34.0-46.0); HGB 12.2 gm/dL (11.4-16.0); Lymphocytes # (A) 0.8 k/uL (1.0-4.8); Lymphocytes % (A) 7 %; MCH 30.2 pg (25.0-35.0); MCHC 32.5 g/dL (31.0-37.0); MCV 93.1 fL (80.0-100.0); Mean Platelet Volume 7.8; Monocytes # (A) 0.3 k/uL (0-1.0); Monocytes % (A) 3 %; Neutrophils # (A) 11.6 k/uL (1.3-7.7); Neutrophils % (A) 90 %; Platelet Count 271 k/uL (150-450); RBC 4.04 m/uL (3.80-5.40); RDW 13.8 % (11.5-15.5); WBC 12.9 k/uL (3.8-10.6)
[2018-08-27 08:10] LABS: Anion Gap 6 mmol/L; Blood Urea Nitrogen 9 mg/dL (7-17); Calcium 9.2 mg/dL (8.4-10.2); Carbon Dioxide 25 mmol/L (22-30); Chloride 107 mmol/L (98-107); Glucose 113 mg/dL (74-99); Potassium 4.7 mmol/L (3.5-5.1); Sodium 138 mmol/L (137-145)
[2018-08-27] MEDS: ALBUTEROL NEBULIZED 2.5 MG/3 ML INHALATION SCH ×2 (08:21→12:26)
[2018-08-27 09:06] LABS: C Reactive Protein <5.0 mg/L (<10.0)
--- NOTE | 2018-08-27 10:56 | P.PN ---
Subjective Progress Note Date: 08/27/18 Principal diagnosis: Abdominal pain Crohn's exacerbation Passed large nonbloody bowel movement this morning. Feels better. Abdominal pain improved. Requesting diet advancement. White count 12.9. Hemoglobin 12.2. Objective - Vital Signs Vital signs: Vital Signs Temp 97.9 F 08/27/18 04:32 Pulse 45 L 08/27/18 06:03 Resp 16 08/27/18 04:32 BP 146/91 08/27/18 06:03 Pulse Ox 97 08/27/18 04:32 Intake & Output 08/26/18 08/27/18 08/27/18 18:59 06:59 18:59 Intake Total 900 1600 Balance 900 1600 Intake: Intake, IV Titration 900 1250 Amount Sodium Chloride 0.9% 1, 900 1250 000 ml @ 125 mls/hr IV . Q8H [facility] Rx#:[id number] Oral 350 Other: Voiding Method Toilet Toilet Toilet # Voids 1 - Exam General appearance: The patient is alert, oriented, in no acute distress. HET: Head is normocephalic and atraumatic. Pupils are equal and reactive. Oropharynx is clear without lesions. Neck: Supple without lymphadenopathy. Trachea midline. Heart: S1 S2. Regular rate and rhythm. Lungs: No crackles or wheezes are heard. Abdomen: Soft, mild tenderness to the right lower quadrant, nondistended with bowel sounds. No peritoneal signs. No palpable organomegaly or masses. Extremities: Normal skin color and turgor. No cyanosis, rash, ulceration, clubbing, or edema. Radial and pedal pulses are 2/4 bilaterally. Neurological: No focal deficits. Strength and sensation are grossly intact. - Labs CBC & Chem 7: 08/27/18 07:00 08/27/18 07:00 Labs: Abnormal Lab Results - Last 24 Hours (Table) 08/26/18 08/26/18 08/26/18 Range/Units 10:55 16:44 20:30 WBC (3.8-10.6) k/uL Neutrophils # (1.3-7.7) k/uL Lymphocytes # (1.0-4.8) k/uL Creatinine (0.52-1.04) mg/dL Glucose (74-99) mg/dL POC Glucose (mg/dL) 137 H 139 H 144 H (75-99) mg/dL 08/27/18 08/27/18 08/27/18 Range/Units 07:00 07:00 07:09 WBC 12.9 H (3.8-10.6) k/uL Neutrophils # 11.6 H (1.3-7.7) k/uL Lymphocytes # 0.8 L (1.0-4.8) k/uL Creatinine 0.51 L (0.52-1.04) mg/dL Glucose 113 H (74-99) mg/dL POC Glucose (mg/dL) 132 H (75-99) mg/dL Assessment and Plan (1) Exacerbation of Crohn's disease Current Visit: No Status: Acute Code(s): K50.90 - CROHN'S DISEASE, UNSPECIFIED, WITHOUT COMPLICATIONS SNOMED Code(s): 94539634 Plan: 1. Clinically improved abdominal pain improving, passing bowel movements. Will advance diet. Decrease IV steroids to every 12 hour dosing. Prednisone taper prescription provided and may start tomorrow 40 mg daily 7 days taper down by 5 mg every 7 days. Return to office in 10-[address] Ruffin. Agreeable for discharge if diet as tolerated. Patient requesting pain medications on discharge will defer to medical service. Assessment and plan a care discussed with Dr. Benson
[2018-08-27] MEDS: HYDROcodone/APAP 5-325MG 1 EACH TAB PO PRN (12:01)
[2018-08-27] MEDS ORDERED: methylPREDNISolone SOD SUCCI 125 MG/2 ML VIAL IV SCH (18:00)
--- NOTE | 2018-08-28 01:13 | HP ---
HISTORY AND PHYSICAL DATE OF SERVICE: 08/24/2018 CHIEF COMPLAINT: Abdominal pain. HISTORY OF PRESENT ILLNESS: This 32-year-old woman with a past medical history of adenoidectomy, history of section, Crohn disease, was complaining of abdominal pain. The abdominal pain is rather diffuse in character and the patient came to [facility] and was admitted for further evaluation and treatment. There is no history of fever, rigors or chills. No history of headache, loss of consciousness, seizures. Patient had elevated CRP and the patient is started on high-dose IV steroids at this time. PAST MEDICAL HISTORY: History of Crohn's disease, history of bowel obstruction, hypoglycemia, adenoidectomy, section. MEDICATIONS: Home medications are noted. ALLERGIES: None. FAMILY HISTORY: No history of heart disease or strokes in the family. SOCIAL HISTORY: History of smoking and history of THC. REVIEW OF SYSTEMS: ENT: No diminished vision. No diminished hearing. CARDIOVASCULAR: No angina. RESPIRATORY : As mentioned earlier. GI: As mentioned earlier. : As mentioned earlier. NERVOUS SYSTEM: No numbness, weakness. ALLERGY/IMMUNOLOGY: No asthma or hayfever. MUSCULOSKELETAL: As mentioned earlier. HEMATOLOGY/ONCOLOGY: As mentioned earlier. ENDOCRINE: No history of diabetes or hypothyroidism. CONSTITUTIONAL: As mentioned earlier. Dermatology: Negative. Rheumatology: Negative. Psychiatry: As mentioned earlier. PHYSICAL EXAMINATION: Patient is alert, oriented x3. The pulse is 78, blood pressure 105/72, respiration 18, temperature 98.2, pulse ox 98% on room air. HEENT: Conjunctivae normal. Neck: No jugular venous distention. CARDIOVASCULAR: S1, S2 muffled. RESPIRATORY: Breath sounds diminished in the bases. Scattered rhonchi and crackles. ABDOMEN: Soft, mild diffuse tenderness. No mass palpable. Legs no edema. No swelling. NERVOUS SYSTEM: Higher functions as mentioned earlier. Moves all four extremities. Lymphatics: No lymph nodes palpable in the neck, axillae or groin. Skin: No ulcer, no rash. No bleeding. JOINTS: No active deforming arthropathy. LABS: WBC 11.7, sodium 136. C-reactive protein 16.5. ASSESSMENT: 1. Abdominal pain with acute Crohn's disease, acute exacerbation. 2. Increased WBC. 3. Elevated CRP. 4. Hyponatremia. 5. Hypoglycemia. 6. Adenoidectomy, section, history of bowel obstruction. 7. History of continued ongoing nicotine dependence. RECOMMENDATIONS AND DISCUSSION: Recommend to continue current management, monitoring, symptomatic treatment. Continue with IV steroids. Monitor blood sugars closely. DVT prophylaxis. Otherwise, continue rest of medications. Prognosis guarded because of multiple complex medical issues. Further recommendations to follow. RU / RUSLANN: [id number] /
[2018-08-28] MEDS ORDERED: predniSONE 20 MG TAB PO SCH (09:00)
--- NOTE | 2018-08-28 09:32 | DS ---
DISCHARGE SUMMARY DATE OF SERVICE: 08/27/2018 FINAL DIAGNOSES: 1. Abdominal pain with acute Crohn's disease acute exacerbation. 2. Increased WBC. 3. Hyponatremia, mild. 4. Elevated CRP. 5. History of hypoglycemia. 6. History of adenoidectomy. 7. History of section. 8. History of continued ongoing nicotine dependence. DISCHARGE DISPOSITION: The patient will be discharged in stable condition with guarded prognosis. HISTORY OF PRESENT ILLNESS: This 32-year-old woman with a past medical history of multiple medical problems admitted with abdominal pain with acute Crohn's disease. The patient was treated with IV steroids. Patient improved significantly. Patient was also seen by Gastroenterology. On exam, vitals are stable. CARDIOVASCULAR: S1, S2 muffled. ABDOMEN: Soft. NERVOUS SYSTEM: No focal deficits. Gastroenterology discharged the patient. DISCHARGE ADVICE: 1. Diet is cardiac. 2. Activity limited until followup. 3. Follow up with Dr. Vick in 2 to 3 days. 4. Follow up with Dr. Ruffin as advised. Medications are: 1. Tylenol p.r.n. 2. Ventolin HFA one puff b.i.d. p.r.n. 3. Habitrol 14 daily. 4. [place] 5 mg t.i.d. p.r.n. 5. Prednisone 40 mg daily for 7 days, 35 for 7 days, 30 for 7 days, 25 for 7 days, 20 for 7 days, 15 for 7 days, 10 for 7 days then follow with Gastroenterology. Once again, the patient will be discharged in a stable condition with guarded prognosis. MMODL / IJN: [id number] /
== END 2018-08-27 12:25 | disposition home or self-care (01) | DRG 386 ==
LOC: EC 14:55 → 3NMEDONC 15:27
PROVIDERS: ADMIT Hospitalist; ATTEND Hospitalist
DX: K50.00 Crohn's disease of small intestine without complications (principal); E87.1 Hypo-osmolality and hyponatremia; K59.00 Constipation, unspecified; Z71.6 Tobacco abuse counseling; F17.210 Nicotine dependence, cigarettes, uncomplicated; Z98.891 History of uterine scar from previous surgery; Z79.899 Other long term (current) drug therapy; D72.829 Elevated white blood cell count, unspecified
CPT/HCPCS: 71045; 80048; 85025; 85652; 86140; 94640; 99284

== ENCOUNTER → 2018-10-01 | Outpatient (CLI) | payer OTHER ==
[2018-10-01 11:37] VITALS: RESP 16; TEMP 98.3
[2018-10-01 12:04] LABS: Basophils % (A) 0 %; Eosinophils % (A) 0 %; HCT 42.7 % (34.0-46.0); HGB 13.2 gm/dL (11.4-16.0); Lymphocytes # (A) 1.1 k/uL (1.0-4.8); Lymphocytes % (A) 7 %; MCH 28.8 pg (25.0-35.0); MCHC 30.9 g/dL (31.0-37.0); MCV 93.1 fL (80.0-100.0); Mean Platelet Volume 7.5; Monocytes # (A) 0.2 k/uL (0-1.0); Monocytes % (A) 1 %; Neutrophils # (A) 13.2 k/uL (1.3-7.7); Neutrophils % (A) 91 %; Platelet Count 286 k/uL (150-450); RBC 4.59 m/uL (3.80-5.40); RDW 14.7 % (11.5-15.5); WBC 14.5 k/uL (3.8-10.6)
[2018-10-01 12:09] LABS: ALT 16 U/L (9-52); AST 14 U/L (14-36); Albumin 4.4 g/dL (3.5-5.0); Alkaline Phosphatase 44 U/L (38-126); Anion Gap 9 mmol/L; Blood Urea Nitrogen 9 mg/dL (7-17); Calcium 9.7 mg/dL (8.4-10.2); Carbon Dioxide 23 mmol/L (22-30); Chloride 108 mmol/L (98-107); Glucose 112 mg/dL (74-99); Potassium 3.8 mmol/L (3.5-5.1); Sodium 140 mmol/L (137-145); Total Bilirubin 0.2 mg/dL (0.2-1.3)
[2018-10-01 13:14] VITALS: BP 111/71; PULSE 96
== END ==
LOC: PROCWHC3 11:00
PROVIDERS: ATTEND Internal Medicine Gastroenterology
DX: K50.80 Crohn's disease of both small and large intestine without complications (principal)
CPT/HCPCS: 80053; 85025; 86140; 96413; 96415; Q5103

== ENCOUNTER 2018-10-08 03:05 | Emergency (ER) | payer OTHER ==
[2018-10-08 03:13] VITALS: BP 123/85
[2018-10-08] MEDS ORDERED: SODIUM CHLORIDE 0.9% 500 ML 500 ML IV ONE (03:14)
--- NOTE | 2018-10-08 03:50 | ED ---
Female Urogenital HPI - General Chief complaint: Vaginal Bleeding Stated complaint: Vaginal Bleeding Time Seen by Provider: 10/08/18 03:13 Source: patient Mode of arrival: ambulatory Limitations: no limitations - History of Present Illness Initial comments: Leela is a 32yo female who presents to the Ed today for evaluation of vaginal bleeding. Patient reorts that approximately 3 weeks ago she had 3-4 days of spotting, the next week she had a normal period, she reports that over the past 2-3 days she's again developed vaginal bleeding. She reports that this morning she went through 2 super tampons over the course of 2 hours and decided to come in for further evaluation. Patient doesn't believe there is any chance she is she has no concern for sexual transmitted infections. Patient has not followed with her biology specimen technician in approximately 3 years. - Related Data Home Medications Medication Instructions Recorded Confirmed Albuterol Sulfate [Ventolin HFA] 1 puff INHALATION RT-BID PRN 09/18/14 10/01/18 Acetaminophen Tab [Tylenol] 500 mg PO Q6HR PRN 10/04/17 10/01/18 Previous Rx's Medication Instructions Recorded HYDROcodone/APAP 5-325MG [Alexander 1 tab PO Q6HR PRN 3 Days #12 tab 08/27/18 5-325] Nicotine 14Mg/24Hr Patch [Habitrol] 1 patch TRANSDERM DAILY patch 08/27/18 predniSONE 0 mg PO DIRECTED #123 tab 08/27/18 Allergies Allergy/AdvReac Type Severity Reaction Status Date / Time No Known Allergies Allergy Verified 10/08/18 03:13 Review of Systems ROS Statement: Those systems with pertinent positive or pertinent negative responses have been documented in the HPI. ROS Other: All systems not noted in ROS Statement are negative. Past Medical History Past Medical History: No Reported History Additional Past Medical History / Comment(s): Crohn's, bowel obstructions, hypoglycemia History of Any Multi-Drug Resistant Organisms: None Reported Past Surgical History: Adenoidectomy, Section Additional Past Surgical History / Comment(s): Colonoscopy Past Anesthesia/Blood Transfusion Reactions: No Reported Reaction Past Psychological History: Depression Smoking Status: Current every day smoker Past Alcohol Use History: Rare Past Drug Use History: Marijuana - Past Family History Mother Family Medical History: No Reported History Additional Family Medical History / Comment(s): Mother is healthy Father History Unknown: Yes Additional Family Medical History / Comment(s): Pt does not know her father. General Exam - General Exam Comments Initial Comments: Physical Exam GENERAL: Patient is well-developed and well-nourished. Patient is nontoxic and well- hydrated and is in no distress. HENT: Normocephalic, Atraumatic. EYES: PERRL, EOMI No conjunctival pallor PULMONARY: Unlabored respirations. No audible rales rhonchi or wheezing was noted. CARDIOVASCULAR: There is a regular rate and rhythm without any murmurs gallops or rubs. ABDOMEN: Soft and nontender with normal bowel sounds. SKIN: Skin is clear with no lesions or rashes and otherwise unremarkable. : External genitalia pelvic exam with one dark blood clot in the vaginal vault no active bleeding from the cervical os os is closed NEUROLOGIC: Patient is alert and oriented x3. Moving all extremities spontaneously MUSCULOSKELETAL: Normal extremities with adequate strength and full range of motion. No lower extremity swelling or edema. No calf tenderness. PSYCHIATRIC: Normal psychiatric evaluation. Limitations: no limitations Course Vital Signs 10/08/18 10/08/18 03:09 05:10 Temperature 98.4 F 97.9 F Pulse Rate 77 70 Respiratory 18 19 Rate Blood Pressure 123/85 O2 Sat by Pulse 100 97 Oximetry Medical Decision Making - Medical Decision Making The patient was seen and evaluated history was obtained from the patient Physical exam is unremarkable patient has no hypotension or tachycardia she's no pallor I have no concern for excessive blood loss exam pelvic exam with one dark blood clot in the vaginal vault no active bleeding Labs with leukocytosis likely related to the patient's chronic Crohn's disease Hemoglobin is stable Beta hCG is undetectable patient never had a positive tests I do not believe she is Results were discussed with patient, patient not have any significant bleeding while in the emergency department. She is resting comfortably. At this time patient stable for discharge home with outpatient follow-up with her biology specimen technician Dr. Valdez. - Lab Data Result diagrams: 10/08/18 03:56 10/08/18 03:56 Lab Results 10/08/18 10/08/18 10/08/18 Range/Units 03:56 03:56 03:56 WBC 14.9 H (3.8-10.6) k/uL RBC 4.29 (3.80-5.40) m/uL Hgb 12.5 (11.4-16.0) gm/dL Hct 39.7 (34.0-46.0) % MCV 92.7 (80.0-100.0) fL MCH 29.3 (25.0-35.0) pg MCHC 31.6 (31.0-37.0) g/dL RDW 14.6 (11.5-15.5) % Plt Count 303 (150-450) k/uL Neutrophils % 77 % Lymphocytes % 17 % Monocytes % 4 % Eosinophils % 1 % Basophils % 0 % Neutrophils # 11.5 H (1.3-7.7) k/uL Lymphocytes # 2.5 (1.0-4.8) k/uL Monocytes # 0.6 (0-1.0) k/uL Eosinophils # 0.1 (0-0.7) k/uL Basophils # 0.0 (0-0.2) k/uL Sodium 139 (137-145) mmol/L Potassium 4.1 (3.5-5.1) mmol/L Chloride 107 (98-107) mmol/L Carbon Dioxide 26 (22-30) mmol/L Anion Gap 6 mmol/L BUN 15 (7-17) mg/dL Creatinine 0.42 L (0.52-1.04) mg/dL Est GFR (CKD-EPI)AfAm >90 (>60 ml/min/1.73 sqM) Est GFR (CKD-EPI)NonAf >90 (>60 ml/min/1.73 sqM) Glucose 94 (74-99) mg/dL Calcium 9.6 (8.4-10.2) mg/dL Total Bilirubin 0.2 (0.2-1.3) mg/dL AST 13 L (14-36) U/L ALT 14 (9-52) U/L Alkaline Phosphatase 41 (38-126) U/L Total Protein 6.5 (6.3-8.2) g/dL Albumin 4.0 (3.5-5.0) g/dL HCG, Quant <2.4 mIU/mL Urine HCG, Qual Not Detected (Not Detectd) Disposition Clinical Impression: Dysfunctional uterine bleeding Disposition: HOME SELF-CARE Condition: Stable Instructions (If sedation given, give patient instructions): Menstruation (ED) Is patient prescribed a controlled substance at d/c from ED?: No Referrals: Madison Vick MD [Primary Care Provider] - 1-2 days
[2018-10-08 04:11] LABS: Basophils % (A) 0 %; Eosinophils # (A) 0.1 k/uL (0-0.7); Eosinophils % (A) 1 %; HCT 39.7 % (34.0-46.0); HGB 12.5 gm/dL (11.4-16.0); Lymphocytes # (A) 2.5 k/uL (1.0-4.8); Lymphocytes % (A) 17 %; MCH 29.3 pg (25.0-35.0); MCHC 31.6 g/dL (31.0-37.0); MCV 92.7 fL (80.0-100.0); Mean Platelet Volume 7.1; Monocytes # (A) 0.6 k/uL (0-1.0); Monocytes % (A) 4 %; Neutrophils # (A) 11.5 k/uL (1.3-7.7); Neutrophils % (A) 77 %; Platelet Count 303 k/uL (150-450); RBC 4.29 m/uL (3.80-5.40); RDW 14.6 % (11.5-15.5); WBC 14.9 k/uL (3.8-10.6)
[2018-10-08 04:20] LABS: ALT 14 U/L (9-52); AST 13 U/L (14-36); Alkaline Phosphatase 41 U/L (38-126); Anion Gap 6 mmol/L; Blood Urea Nitrogen 15 mg/dL (7-17); Calcium 9.6 mg/dL (8.4-10.2); Carbon Dioxide 26 mmol/L (22-30); Chloride 107 mmol/L (98-107); Glucose 94 mg/dL (74-99); Potassium 4.1 mmol/L (3.5-5.1); Sodium 139 mmol/L (137-145); Total Bilirubin 0.2 mg/dL (0.2-1.3); Total Protein 6.5 g/dL (6.3-8.2)
[2018-10-08 04:36] LABS: HCG,Quantitative Serum <2.4 mIU/mL
[2018-10-08 05:12] VITALS: PULSE 70; RESP 19; TEMP 97.9
== END 2018-10-08 05:11 | disposition home or self-care (01) ==
LOC: EC 03:05
DX: N93.8 Other specified abnormal uterine and vaginal bleeding (principal); D72.829 Elevated white blood cell count, unspecified; F17.200 Nicotine dependence, unspecified, uncomplicated; Z53.8 Procedure and treatment not carried out for other reasons
CPT/HCPCS: 36415; 80053; 81025; 84702; 85025; 99284

== ENCOUNTER 2018-10-21 19:54 | Emergency (ER) | payer OTHER ==
[2018-10-21 20:10] VITALS: RESP 16
[2018-10-21] MEDS ORDERED: KETOROLAC 60 MG/2 ML VIAL IM STA (21:28)
[2018-10-21] MEDS ORDERED: CLINDAMYCIN 150 MG CAP PO STA (21:36)
--- NOTE | 2018-10-21 21:43 | ED ---
ENT HPI - General Chief complaint: Dental/Oral Stated complaint: Oral Pain Time Seen by Provider: 10/21/18 20:14 Source: patient Limitations: no limitations - History of Present Illness Initial comments: Patient is a 32-year-old female presenting to emergency department with dental pain. Patient reports pain on tooth #3 with swelling that started 3 days ago. Patient reports multiple oral cavities that have been inflamed for the past few months but states this one has been the worse. Patient states that she does not have a dentist. Patient also reports a fractured tooth in the same area. Patient reports the pain is localized along the right mandible. Patient reports the swelling and the pain has not resolved over the past 2 days. Patient reports taking Tylenol and ibuprofen for pain control. Patient denies fever, nausea, vomiting, headache, chest pain, chest tightness, shortness of breath. - Related Data Home Medications Medication Instructions Recorded Confirmed Albuterol Sulfate [Ventolin HFA] 1 puff INHALATION RT-BID PRN 09/18/14 10/01/18 Acetaminophen Tab [Tylenol] 500 mg PO Q6HR PRN 10/04/17 10/01/18 Previous Rx's Medication Instructions Recorded HYDROcodone/APAP 5-325MG [[place] 1 tab PO Q6HR PRN 3 Days #12 tab 08/27/18 5-325] Nicotine 14Mg/24Hr Patch [Habitrol] 1 patch TRANSDERM DAILY patch 08/27/18 predniSONE 0 mg PO DIRECTED #123 tab 08/27/18 Clindamycin HCl 300 mg PO Q6HR #40 cap 10/21/18 Allergies Allergy/AdvReac Type Severity Reaction Status Date / Time No Known Allergies Allergy Verified 10/21/18 20:08 Review of Systems ROS Statement: Those systems with pertinent positive or pertinent negative responses have been documented in the HPI. ROS Other: All systems not noted in ROS Statement are negative. Past Medical History Past Medical History: No Reported History Additional Past Medical History / Comment(s): Crohn's, bowel obstructions, hypoglycemia History of Any Multi-Drug Resistant Organisms: None Reported Past Surgical History: Adenoidectomy, Section Additional Past Surgical History / Comment(s): Colonoscopy Past Anesthesia/Blood Transfusion Reactions: No Reported Reaction Past Psychological History: Depression Smoking Status: Current every day smoker Past Alcohol Use History: Rare Past Drug Use History: Marijuana - Past Family History Mother Family Medical History: No Reported History Additional Family Medical History / Comment(s): Mother is healthy Father History Unknown: Yes Additional Family Medical History / Comment(s): Pt does not know her father. General Exam Limitations: no limitations General appearance: alert, in no apparent distress Head exam: Present: atraumatic, normocephalic, normal inspection Eye exam: Present: normal appearance, PERRL, EOMI Pupils: Present: normal accommodation ENT exam: Absent: normal exam, normal oropharynx (Fracture on tooth #3. Erythema and local edema along the gumline. No discharge noted.) Neck exam: Present: normal inspection, full ROM. Absent: tenderness, lymphadenopathy Respiratory exam: Present: normal lung sounds bilaterally Cardiovascular Exam: Present: regular rate, normal rhythm, normal heart sounds Extremities exam: Present: normal inspection Back exam: Present: normal inspection, full ROM Neurological exam: Present: alert, oriented X3 Psychiatric exam: Present: normal affect, normal mood Skin exam: Present: warm, intact, normal color Course Vital Signs 10/21/18 20:08 Temperature 98.5 F Pulse Rate 86 Respiratory 16 Rate Blood Pressure 103/71 O2 Sat by Pulse 100 Oximetry Medical Decision Making - Medical Decision Making Patient is a 32-year-old female presented to emergency department with dental pain and swelling. Based on physical examination I suspect patient to have a dental infection but do not suspect an abscess. Patient was given Toradol to alleviate the pain. Patient was also given clindamycin and will be discharged with a 10 day course of clindamycin. Patient advised to follow-up with a dentist. Patient advised to return to emergency department if symptoms worsen. Case discussed with physician. Disposition Clinical Impression: Chronic dental pain Disposition: HOME SELF-CARE Condition: Stable Instructions (If sedation given, give patient instructions): Toothache (ED), Dental Caries (ED) Additional Instructions: Please follow with a dentist. Please take prescribed medication as directed. Patient to emergency department if symptoms worsen. Prescriptions: Clindamycin HCl 300 mg PO Q6HR #40 cap Is patient prescribed a controlled substance at d/c from ED?: No Referrals: Madison Vick MD [Primary Care Provider] - 1-2 days Time of Disposition: 21:41
[2018-10-21 21:53] VITALS: BP 100/67; PULSE 81; TEMP 98.6
== END 2018-10-21 21:50 | disposition home or self-care (01) ==
LOC: EC 19:54
DX: S02.5XXA Fracture of tooth (traumatic), initial encounter for closed fracture (principal); F17.200 Nicotine dependence, unspecified, uncomplicated; X58.XXXA Exposure to other specified factors, initial encounter
CPT/HCPCS: 99282; 96372; J1885

== ENCOUNTER 2018-12-17 15:20 | Inpatient (IN) | payer BC, OTHER ==
--- NOTE | 2018-12-17 15:46 | ED ---
Abdominal Pain HPI - General Chief Complaint: Abdominal Pain Stated Complaint: Crohns flare up Time Seen by Provider: 12/17/18 15:35 Source: patient Mode of arrival: ambulatory Limitations: no limitations - History of Present Illness Initial Comments: 33-year-old female presenting today for chief complaint abdominal pain vomiting and diarrhea 2 days. Patient states that she has had history of Crohn's disease and received her infusion of a new chronic medication today at [facility]. Patient states when abdominal pain persisted as well as the vomiting and diarrhea she was concerned of a Crohn's flare and presents emergency department for evaluation. Patient states she is followed by geothermal operating engineer Dr. Rodriguez. She denies any current steroid use. Patient denies any melena hematochezia or hematemesis. Patient denies any fevers. Pat ient denies any chest pain short of breath. Patient points to her lower abdomen when describing pain. States as sharp colicky coming going. Denies any radiation. Patient denies any specific alleviating and aggravating factors. Denies . Remaining ROS (-). - Related Data Home Medications Medication Instructions Recorded Confirmed RX: Albuterol Sulfate [Ventolin 1 puff INHALATION RT-BID PRN 09/18/14 12/17/18 HFA] Allergies Allergy/AdvReac Type Severity Reaction Status Date / Time No Known Allergies Allergy Verified 12/17/18 16:23 Review of Systems ROS Statement: Those systems with pertinent positive or pertinent negative responses have been documented in the HPI. ROS Other: All systems not noted in ROS Statement are negative. Past Medical History Past Medical History: No Reported History Additional Past Medical History / Comment(s): Crohn's, bowel obstructions, hyp oglycemia History of Any Multi-Drug Resistant Organisms: None Reported Past Surgical History: Adenoidectomy, Section Additional Past Surgical History / Comment(s): Colonoscopy Past Anesthesia/Blood Transfusion Reactions: No Reported Reaction Past Psychological History: Depression Smoking Status: Current every day smoker - Past Family History Mother Family Medical History: No Reported History Additional Family Medical History / Comment(s): Mother is healthy Father History Unknown: Yes Additional Family Medical History / Comment(s): Pt does not know her father. General Exam - General Exam Comments Initial Comments: General: The patient is awake and alert,dry heaving into bucket on arrival. Eye: Pupils are equal, round and reactive to light, extra-ocular movements are intact. No nystagmus. There is normal conjunctiva bilaterally. No signs of icterus. Ears, nose, mouth and throat: There are moist mucous membranes and no oral lesions. Neck: The neck is supple, there is no tenderness or JVD. Cardiovascular: There is a regular rate and rhythm. No murmur, rub or gallop is appreciated. Respiratory: Lungs are clear to auscultation, respirations are non-labored, breath sounds are equal. No wheezes, stridor, rales, or rhonchi. Gastrointestinal: Soft, non-distended, diffuse tenderness to palpation of the abdomen without masses or organomegaly noted. No lower pelvic pain. There is no rebound or guarding present. No CVA tenderness. Bowel sounds are unremarkable. Musculoskeletal: Normal ROM, no tenderness. Strength 5/5. Sensation intact. Rdial pulses equal bilaterally 2+. Neurological: A&O x 3. CN II-XII intact, There are no obvious motor or sensory deficits. Coordination appears grossly intact. Speech is normal. Skin: Skin is warm and dry and no rashes or lesions are noted. Psychiatric: Cooperative, appropriate mood & affect, normal judgment. Limitations: no limitations Course Vital Signs 12/17/18 12/17/18 15:31 17:12 Temperature 97.6 F 98.4 F Pulse Rate 82 98 Respiratory 16 16 Rate Blood Pressure 123/85 98/61 O2 Sat by Pulse 98 97 Oximetry Medical Decision Making - Medical Decision Making 33-year-old female presenting for abdominal pain nausea vomiting. Patient has history of Crohn's disease denies melena hematochezia. Hemoglobin stable. Patient's blood pressure at the lower aspect of normal stable. No elevation of heart rate. Patient dry heaving upon arrival. Patient administered Zofran. Patient given morphine for pain management. Patient continues to have pain. CT does not reveal a complicating process of the Crohn's however Crohn's is evident. Small amount of free fluid in pelvis. HCG (-) No pelvic pain appreciated on exam. Patient given IV hydration. laboratory studies stable. Patient continues to have pain despite morphine administration. At this time will admit patient for intractable pain. GI will be on consult. Patient was given Solu-Medrol emergency department. As well as IV hydration and ordered a clear liquid diet for bowel rest. Patient is agreeable to this admission. Dr. Arcos is agreeable to admission and spoke to admitting provider. I did discuss at length the incident O finding of pulmonary nodules including the differential diagnosis and recommended outpatient follow-up of these nodules. Patient verbalized understanding. - Lab Data Result diagrams: 12/17/18 16:00 12/17/18 16:00 Lab Results 12/17/18 12/17/18 12/17/18 Range/Units 16:00 16:00 16:00 WBC 12.3 H (3.8-10.6) k/uL RBC 4.80 (3.80-5.40) m/uL Hgb 14.1 (11.4-16.0) gm/dL Hct 43.2 (34.0-46.0) % MCV 90.1 (80.0-100.0) fL MCH 29.4 (25.0-35.0) pg MCHC 32.6 (31.0-37.0) g/dL RDW 13.7 (11.5-15.5) % Plt Count 264 (150-450) k/uL Neutrophils % 78 % Lymphocytes % 15 % Monocytes % 4 % Eosinophils % 1 % Basophils % 0 % Neutrophils # 9.6 H (1.3-7.7) k/uL Lymphocytes # 1.8 (1.0-4.8) k/uL Monocytes # 0.5 (0-1.0) k/uL Eosinophils # 0.2 (0-0.7) k/uL Basophils # 0.0 (0-0.2) k/uL Sodium 138 (137-145) mmol/L Potassium 3.7 (3.5-5.1) mmol/L Chloride 107 (98-107) mmol/L Carbon Dioxide 21 L (22-30) mmol/L Anion Gap 10 mmol/L BUN 9 (7-17) mg/dL Creatinine 0.54 (0.52-1.04) mg/dL Est GFR (CKD-EPI)AfAm >90 (>60 ml/min/1.73 sqM) Est GFR (CKD-EPI)NonAf >90 (>60 ml/min/1.73 sqM) Glucose 95 (74-99) mg/dL Plasma Lactic Acid Darryl (0.7-2.0) mmol/L Calcium 9.5 (8.4-10.2) mg/dL Total Bilirubin 0.7 (0.2-1.3) mg/dL AST 15 (14-36) U/L ALT 14 (9-52) U/L Alkaline Phosphatase 62 (38-126) U/L Total Protein 7.1 (6.3-8.2) g/dL Albumin 4.3 (3.5-5.0) g/dL Amylase 53 (30-110) U/L Lipase 61 (23-300) U/L Urine Color Yellow Urine Appearance Clear (Clear) Urine pH 6.0 (5.0-8.0) Ur Specific Webb 1.015 (1.001-1.035) Urine Protein Negative (Negative) Urine Glucose (UA) Negative (Negative) Urine Ketones 1+ H (Negative) Urine Blood Negative (Negative) Urine Nitrite Negative (Negative) Urine Bilirubin Negative (Negative) Urine Urobilinogen <2.0 (<2.0) mg/dL Ur Leukocyte Esterase Negative (Negative) Urine HCG, Qual (Not Detectd) 12/17/18 12/17/18 Range/Units 16:00 17:21 WBC (3.8-10.6) k/uL RBC (3.80-5.40) m/uL Hgb (11.4-16.0) gm/dL Hct (34.0-46.0) % MCV (80.0-100.0) fL MCH (25.0-35.0) pg MCHC (31.0-37.0) g/dL RDW (11.5-15.5) % Plt Count (150-450) k/uL Neutrophils % % Lymphocytes % % Monocytes % % Eosinophils % % Basophils % % Neutrophils # (1.3-7.7) k/uL Lymphocytes # (1.0-4.8) k/uL Monocytes # (0-1.0) k/uL Eosinophils # (0-0.7) k/uL Basophils # (0-0.2) k/uL Sodium (137-145) mmol/L Potassium (3.5-5.1) mmol/L Chloride (98-107) mmol/L Carbon Dioxide (22-30) mmol/L Anion Gap mmol/L BUN (7-17) mg/dL Creatinine (0.52-1.04) mg/dL Est GFR (CKD-EPI)AfAm (>60 ml/min/1.73 sqM) Est GFR (CKD-EPI)NonAf (>60 ml/min/1.73 sqM) Glucose (74-99) mg/dL Plasma Lactic Acid Darryl 1.1 (0.7-2.0) mmol/L Calcium (8.4-10.2) mg/dL Total Bilirubin (0.2-1.3) mg/dL AST (14-36) U/L ALT (9-52) U/L Alkaline Phosphatase (38-126) U/L Total Protein (6.3-8.2) g/dL Albumin (3.5-5.0) g/dL Amylase (30-110) U/L Lipase (23-300) U/L Urine Color Urine Appearance (Clear) Urine pH (5.0-8.0) Ur Specific Webb (1.001-1.035) Urine Protein (Negative) Urine Glucose (UA) (Negative) Urine Ketones (Negative) Urine Blood (Negative) Urine Nitrite (Negative) Urine Bilirubin (Negative) Urine Urobilinogen (<2.0) mg/dL Ur Leukocyte Esterase (Negative) Urine HCG, Qual Not Detected (Not Detectd) Disposition Clinical Impression: Crohns disease, Abdominal pain, Intractable abdominal pain, Vomiting, Diarrhea, Pulmonary nodules Disposition: ADMITTED IP TO THIS HOSP Condition: Stable Is patient prescribed a controlled substance at d/c from ED?: No Referrals: Madison Vick MD [Primary Care Provider] - 1-2 days Time of Disposition: 18:15
[2018-12-17] MEDS ORDERED: MORPHINE SULFATE 4 MG/ML SYRINGE IVP STA (16:02)
[2018-12-17] MEDS ORDERED: methylPREDNISolone SOD SUCCI 125 MG/2 ML VIAL IV STA (16:04)
[2018-12-17] MEDS ORDERED: ONDANSETRON 4 MG/2 ML VIAL IM STA (16:11)
[2018-12-17] MEDS ORDERED: SODIUM CHLORIDE 0.9% 1,000 ML IV ONE (16:12)
[2018-12-17 16:14] LABS: Basophils % (A) 0 %; Eosinophils # (A) 0.2 k/uL (0-0.7); Eosinophils % (A) 1 %; HCT 43.2 % (34.0-46.0); HGB 14.1 gm/dL (11.4-16.0); Lymphocytes # (A) 1.8 k/uL (1.0-4.8); Lymphocytes % (A) 15 %; MCH 29.4 pg (25.0-35.0); MCHC 32.6 g/dL (31.0-37.0); MCV 90.1 fL (80.0-100.0); Mean Platelet Volume 7.8; Monocytes # (A) 0.5 k/uL (0-1.0); Monocytes % (A) 4 %; Neutrophils # (A) 9.6 k/uL (1.3-7.7); Neutrophils % (A) 78 %; Platelet Count 264 k/uL (150-450); RDW 13.7 % (11.5-15.5); WBC 12.3 k/uL (3.8-10.6)
[2018-12-17] MEDS ORDERED: methylPREDNISolone SOD SUCCI 40 MG/ML 1 ML VIAL IV SCH (16:15)
[2018-12-17 16:18] LABS: Appearance,Urine Clear (Clear); Bilirubin,Urine Negative (Negative); Blood,Urine Negative (Negative); Color,Urine Yellow; Glucose,Urine (UA) Negative (Negative); Ketones,Urine 1+ (Negative); Leukocyte Esterase,Urine Negative (Negative); Nitrite,Urine Negative (Negative); Protein,Urine Negative (Negative); Specific Gravity,Urine 1.015 (1.001-1.035); Urobilinogen,Urine <2.0 mg/dL (<2.0)
[2018-12-17 16:24] LABS: ALT 14 U/L (9-52); AST 15 U/L (14-36); African American GFR (CKD) >90 (>60 ml/min/1.73 sqM); Albumin 4.3 g/dL (3.5-5.0); Alkaline Phosphatase 62 U/L (38-126); Amylase 53 U/L (30-110); Anion Gap 10 mmol/L; Blood Urea Nitrogen 9 mg/dL (7-17); Calcium 9.5 mg/dL (8.4-10.2); Carbon Dioxide 21 mmol/L (22-30); Chloride 107 mmol/L (98-107); Glucose 95 mg/dL (74-99); Potassium 3.7 mmol/L (3.5-5.1); Sodium 138 mmol/L (137-145); Total Bilirubin 0.7 mg/dL (0.2-1.3); Total Protein 7.1 g/dL (6.3-8.2)
--- NOTE | 2018-12-17 17:03 | CT ---
EXAMINATION TYPE: CT abdomen pelvis w con DATE OF EXAM: 12/17/2018 COMPARISON: 07/30/2018 HISTORY: History of crohn's, increasing abdominal pain x [address] DLP: 513.7 mGycm Automated exposure control for dose reduction was used. CONTRAST: CT scan of the abdomen pelvis is performed with IV Contrast, patient injected with 100 mL of Isovue 3 00. FINDINGS- LUNG BASES-subcentimeter pulmonary nodules are noted bilaterally.. LIVER/GB- No gross abnormality is appreciated. PANCREAS- No gross abnormality is seen. SPLEEN- No gross abnormality is seen. ADRENALS- No gross abnormality is seen. KIDNEYS/BLADDER- no hydronephrosis or nephrolithiasis. Tiny hypodensity involving the lower pole the left kidney is too small to characterize but likely related to a cyst. BOWEL-there are dilated bowel loops in the mid abdomen with thickened wall involving the distal ileum extending to the region of the terminal ileum. This is similar to the prior exam of 07/30/2018 and whitaker ggestive of active Crohn's disease. Small amount of free fluid in the abdomen pelvis is noted. Divert iculosis of the colon noted.. LYMPH NODES- No greater than 1cm abdominal or pelvic lymph nodes areappreciated. OSSEOUS STRUCTURES- No significant abnormality is seen. OTHER-aorta of normal caliber. IMPRESSION- 1. Thickening of bowel loops with a small amount of free fluid in the pelvis. Primarily involving the distal ileum which appears to be dilated. Active Crohn's is an enteritis is most likely etiology. Pa rtial obstructive pattern not entirely excluded correlate clinically. 2. Subcentimeter bilateral pulmonary nodules
[2018-12-17] MEDS ORDERED: ONDANSETRON 4 MG/2 ML VIAL IVP PRN (17:36)
[2018-12-17] MEDS ORDERED: NALOXONE 0.4 MG/ML 1 ML VIAL IV PRN (17:36)
[2018-12-17] MEDS: SODIUM CHLORIDE 0.9% 1,000 ML IV SCH (18:22)
[2018-12-17] MEDS: MORPHINE SULFATE 4 MG/ML SYRINGE IV PRN (20:13)
[2018-12-17] MEDS: IPRATROPIUM-ALBUTEROL 3 ML NEB INHALATION PRN (21:58)
[2018-12-18] MEDS: MORPHINE SULFATE 4 MG/ML SYRINGE IV PRN ×6 (00:15→22:05)
[2018-12-18] MEDS: SODIUM CHLORIDE 0.9% 1,000 ML IV SCH ×2 (07:55→20:13)
[2018-12-18 09:51] LABS: Basophils % (A) 0 %; Eosinophils % (A) 0 %; HCT 34.6 % (34.0-46.0); HGB 11.3 gm/dL (11.4-16.0); Lymphocytes # (A) 1.8 k/uL (1.0-4.8); Lymphocytes % (A) 23 %; MCH 30.8 pg (25.0-35.0); MCHC 32.5 g/dL (31.0-37.0); MCV 94.9 fL (80.0-100.0); Mean Platelet Volume 8.5; Monocytes # (A) 0.3 k/uL (0-1.0); Monocytes % (A) 4 %; Neutrophils # (A) 5.6 k/uL (1.3-7.7); Neutrophils % (A) 71 %; Platelet Count 202 k/uL (150-450); RBC 3.65 m/uL (3.80-5.40); RDW 14.3 % (11.5-15.5); WBC 7.9 k/uL (3.8-10.6)
[2018-12-18 10:06] LABS: African American GFR (CKD) >90 (>60 ml/min/1.73 sqM); Anion Gap 8 mmol/L; Blood Urea Nitrogen 6 mg/dL (7-17); Calcium 8.9 mg/dL (8.4-10.2); Carbon Dioxide 20 mmol/L (22-30); Chloride 110 mmol/L (98-107); Glucose 130 mg/dL (74-99); Potassium 3.9 mmol/L (3.5-5.1); Sodium 138 mmol/L (137-145)
--- NOTE | 2018-12-18 12:31 | P.HPIM ---
History of Present Illness 33-year-old pleasant female came in with complaints of Crampy abdominal for moderate severity has been going on for 2 days with multiple episodes of nausea vomiting. Denied any diarrhea denied any blood in the stools or dark stools or hematemesis. Patient's pain is crampy in nature. Diffuse pain. Patient had a CAT scan of the abdomen did show ileitis mostly consistent with Crohn's flareup. Patient was given an overdose of IV steroids and patient started having epigastric abdominal discomfort because of that and patient was started on be started on 20 twice a day of steroids. Patient appears to be on infliximab as an outpatient. Review of Systems REVIEW OF SYSTEMS: CONSTITUTIONAL: No fever, no malaise, no fatigue. HEENT: No recent visual problems or hearing problems. Denied any sore throat. CARDIOVASCULAR: No chest pain, orthopnea, PND, no palpitations, no syncope. PULMONARY: No shortness of breath, no cough, no hemoptysis. GASTROINTESTINAL: No diarrhea, NEUROLOGICAL: No headaches, no weakness, no numbness. HEMATOLOGICAL: Denies any bleeding or petechiae. GENITOURINARY: Denies any burning micturition, frequency, or urgency. MUSCULOSKELETAL/RHEUMATOLOGICAL: Denies any joint pain, swelling, or any muscle pain. ENDOCRINE: Denies any polyuria or polydipsia. The rest of the 14-point review of systems is negative. Past Medical History Past Medical History: No Reported History Additional Past Medical History / Comment(s): Crohn's, bowel obstructions, hypoglycemia History of Any Multi-Drug Resistant Organisms: None Reported Past Surgical History: Adenoidectomy, Section Additional Past Surgical History / Comment(s): Colonoscopy Past Anesthesia/Blood Transfusion Reactions: No Reported Reaction Past Psychological History: Depression Additional Psychological History / Comment(s): Pt resides with her mother and is independent. Smoking Status: Current some day smoker Past Alcohol Use History: Rare Additional Past Alcohol Use History / Comment(s): Pt started smoking in 1998 and a pack will last her 2 days. Past Drug Use History: Marijuana Additional Drug Use History / Comment(s): DAILY MEDICAL MARIJUANA USE, 1-2 joints a day - Past Family History Mother Family Medical History: No Reported History Additional Family Medical History / Comment(s): Mother is healthy Father History Unknown: Yes Additional Family Medical History / Comment(s): Pt does not know her father. Medications and Allergies Home Medications Medication Instructions Recorded Confirmed Type Albuterol Sulfate [Ventolin HFA] 1 puff INHALATION RT-BID PRN 09/18/14 12/17/18 History Allergies Allergy/AdvReac Type Severity Reaction Status Date / Time No Known Allergies Allergy Verified 12/17/18 16:23 Physical Exam Vitals: Vital Signs Temp Pulse Pulse Resp BP BP Pulse Ox 12/18/18 04:00 98.2 F 61 18 92/55 95 12/17/18 22:30 98.0 F 70 14 95/64 97 12/17/18 22:08 58 L 12/17/18 21:58 51 L 16 12/17/18 19:13 98.4 F 73 18 100/77 97 12/17/18 18:20 73 18 100/77 97 12/17/18 17:12 98.4 F 98 16 98/61 97 12/17/18 15:31 97.6 F 82 16 123/85 98 Intake and Output 12/17/18 12/18/18 12/18/18 22:59 06:59 14:59 Intake Total 200 Balance 200 Intake: Oral 200 Other: # Voids 1 Weight 56.699 kg PHYSICAL EXAMINATION: GENERAL: The patient is alert and oriented x3, not in any acute distress. Well developed, well nourished. HEENT: Pupils are round and equally reacting to light. EOMI. No scleral icterus. No conjunctival pallor. Normocephalic, atraumatic. No pharyngeal erythema. No thyromegaly. CARDIOVASCULAR: S1 and S2 present. No murmurs, rubs, or gallops. PULMONARY: Chest is clear to auscultation, no wheezing or crackles. ABDOMEN: Soft, nontender, nondistended, normoactive bowel sounds. No palpable organomegaly. MUSCULOSKELETAL: No joint swelling or deformity. EXTREMITIES: No cyanosis, clubbing, or pedal edema. NEUROLOGICAL: Gross neurological examination did not reveal any focal deficits. SKIN: No rashes. Results CBC & Chem 7: 12/18/18 09:01 12/18/18 09:01 Labs: Abnormal Lab Results - Last 24 Hours (Table) 12/17/18 12/17/18 12/17/18 Range/Units 16:00 16:00 16:00 WBC 12.3 H (3.8-10.6) k/uL RBC (3.80-5.40) m/uL Hgb (11.4-16.0) gm/dL Neutrophils # 9.6 H (1.3-7.7) k/uL Chloride (98-107) mmol/L Carbon Dioxide 21 L (22-30) mmol/L BUN (7-17) mg/dL Creatinine (0.52-1.04) mg/dL Glucose (74-99) mg/dL Urine Ketones 1+ H (Negative) 12/18/18 12/18/18 Range/Units 09:01 09:01 WBC (3.8-10.6) k/uL RBC 3.65 L (3.80-5.40) m/uL Hgb 11.3 L (11.4-16.0) gm/dL Neutrophils # (1.3-7.7) k/uL Chloride 110 H (98-107) mmol/L Carbon Dioxide 20 L (22-30) mmol/L BUN 6 L (7-17) mg/dL Creatinine 0.44 L (0.52-1.04) mg/dL Glucose 130 H (74-99) mg/dL Urine Ketones (Negative) Thrombosis Risk Factor Assmnt - Choose All That Apply Any of the Below Risk Factors Present?: No Assessment and Plan Plan: -Nausea vomiting and abdominal pain: Secondary to Crohn's flareup patient was started on systemic steroids as mentioned above probably can be discharged tomorrow patient can be started on diet and advance as tolerated. Gastroenterology evaluated the patient also -Subcentimeter pulmonary nodules were seen on the CAT scan which is an incidental finding, further workup as an outpatient -Depression -Nicotine abuse: Counseling was provided -DVT prophylaxis early ambulation GI prophylaxis Protonix
--- NOTE | 2018-12-18 13:30 | P.CONS ---
History of Present Illness - Reason for Consult Consult date: 12/18/18 Abdominal pain Crohn's disease Requesting physician: Chuck Mills - Chief Complaint Abdominal pain - History of Present Illness 33-year-old female with a history of long-standing Crohn's ileocolitis diagnosed in 2004 maintained on Remicade with history of multiple hospitalizations for partial small bowel obstructions Crohn's exacerbation admitted with acute abdominal pain decreased bowel movements nausea vomiting. Patient denies hematemesis adhesive melena. No fevers. Passing flatus no BMs for a few days. I asked infusion of Remicade yesterday. Last colonoscopy 2015 with evidence of mild ileitis rectal polypectomy no active colitis. CT dilated bowel loops in the mid abdomen with thickened wall involving the distal ileum exiting to the region of the terminal ileum. These findings are similar to prior CT exam July 2018 and suggestive of active Crohn's disease. Diverticulosis of the colon noted. Small and a free fluid in the abdomen and pelvis as noted. White count 10.7 on admission presently 7.9. Hemoglobin 11.3. C-reactive 18.7. HCG not detected. Review of Systems Constitutional: Denies fever, chills, sweats, weight gain, or loss. HEENT: Negative for migraines, blurred vision or loss, earaches, drainage, tinnitus, oral mucosal lesions, dysphagia, or odynophagia. CARDIAC: Negative for chest pain, arrhythmias, or palpitation. RESPIRATORY: Negative for shortness of breath, hemoptysis, cough, or sputum production. GI: See HPI for pertinent findings. : Negative for hematuria, urgency, frequency, polyuria, or dysuria. GYNc: Denies possibility of . Negative vaginal discharge. MUSCULOSKELETAL: Negative for muscle aches, swelling, arthritis, and arthralgias. NEUROLOGIC: Negative for stroke or TIA. ENDOCRINE: Negative for thyroid problems. SKIN: Negative for rash or itching. PSYCHIATRIC: Negative history for depression and anxiety Past Medical History Past Medical History: No Reported History Additional Past Medical History / Comment(s): Crohn's, bowel obstructions, hypoglycemia History of Any Multi-Drug Resistant Organisms: None Reported Past Surgical History: Adenoidectomy, Section Additional Past Surgical History / Comment(s): Colonoscopy Past Anesthesia/Blood Transfusion Reactions: No Reported Reaction Past Psychological History: Depression Additional Psychological History / Comment(s): Pt resides with her mother and is independent. Smoking Status: Current some day smoker Past Alcohol Use History: Rare Additional Past Alcohol Use History / Comment(s): Pt started smoking in 1998 and a pack will last her 2 days. Past Drug Use History: Marijuana Additional Drug Use History / Comment(s): DAILY MEDICAL MARIJUANA USE, 1-2 joints a day - Past Family History Mother Family Medical History: No Reported History Additional Family Medical History / Comment(s): Mother is healthy Father History Unknown: Yes Additional Family Medical History / Comment(s): Pt does not know her father. Medications and Allergies Home Medications Medication Instructions Recorded Confirmed Type Albuterol Sulfate [Ventolin HFA] 1 puff INHALATION RT-BID PRN 09/18/14 12/17/18 History Allergies Allergy/AdvReac Type Severity Reaction Status Date / Time No Known Allergies Allergy Verified 12/17/18 16:23 Physical Exam Vitals: Vital Signs Temp Pulse Pulse Resp BP BP Pulse Ox 12/18/18 04:00 98.2 F 61 18 92/55 95 12/17/18 22:30 98.0 F 70 14 95/64 97 12/17/18 22:08 58 L 12/17/18 21:58 51 L 16 12/17/18 19:13 98.4 F 73 18 100/77 97 12/17/18 18:20 73 18 100/77 97 12/17/18 17:12 98.4 F 98 16 98/61 97 12/17/18 15:31 97.6 F 82 16 123/85 98 Intake and Output 12/17/18 12/18/18 12/18/18 22:59 06:59 14:59 Intake Total 200 Balance 200 Intake: Oral 200 Other: # Voids 1 Weight 56.699 kg General appearance: The patient is alert, oriented, in no acute distress. HET: Head is normocephalic and atraumatic. Pupils are equal and reactive. Oropharynx is clear without lesions. Neck: Supple without lymphadenopathy. Trachea midline. Heart: S1 S2. Regular rate and rhythm. Lungs: No crackles or wheezes are heard. Abdomen: Soft, mild tenderness in the right lower quadrant, nondistended with bowel sounds. No peritoneal signs. No palpable organomegaly or masses. Extremities: Normal skin color and turgor. No cyanosis, rash, ulceration, clubbing, or edema. Radial and pedal pulses are 2/4 bilaterally. Neurological: No focal deficits. Strength and sensation are grossly intact. Results CBC & Chem 7: 12/18/18 09:01 12/18/18 09:01 Labs: Abnormal Lab Results - Last 24 Hours (Table) 12/17/18 12/17/18 12/17/18 Range/Units 16:00 16:00 16:00 WBC 12.3 H (3.8-10.6) k/uL RBC (3.80-5.40) m/uL Hgb (11.4-16.0) gm/dL Neutrophils # 9.6 H (1.3-7.7) k/uL Chloride (98-107) mmol/L Carbon Dioxide 21 L (22-30) mmol/L BUN (7-17) mg/dL Creatinine (0.52-1.04) mg/dL Glucose (74-99) mg/dL Urine Ketones 1+ H (Negative) 12/18/18 12/18/18 Range/Units 09:01 09:01 WBC (3.8-10.6) k/uL RBC 3.65 L (3.80-5.40) m/uL Hgb 11.3 L (11.4-16.0) gm/dL Neutrophils # (1.3-7.7) k/uL Chloride 110 H (98-107) mmol/L Carbon Dioxide 20 L (22-30) mmol/L BUN 6 L (7-17) mg/dL Creatinine 0.44 L (0.52-1.04) mg/dL Glucose 130 H (74-99) mg/dL Urine Ketones (Negative) CT scan - abdomen: report reviewed (Dr. Ruffin) Assessment and Plan (1) Abdominal pain Narrative/Plan: 33-year-old female with a history of Crohn's ileocolitis maintained on Remicade with multiple hospitalizations for partial small bowel obstructions exacerbation of Crohn's presents with acute abdominal pain nausea vomiting decreased bowel movements without fever chills or bleeding secondary to exacerbation of Crohn's ileitis underlying stricture disease cannot be excluded.. Current Visit: Yes Status: Acute Code(s): R10.9 - UNSPECIFIED ABDOMINAL PAIN SNOMED Code(s): 64121157 (2) Exacerbation of Crohn's disease of small intestine Current Visit: No Status: Acute Code(s): K50.00 - CROHN'S DISEASE OF SMALL INTESTINE WITHOUT COMPLICATIONS SNOMED Code(s): 329752392 Plan: 1. Clear liquids. IV Solu-Medrol 20 g every 8 hours. CRP in the a.m. We'll proceed with colonoscopy for surveillance screening on Sunday. Daily CBC BMP. 2. Will check office records for recent blood work that was obtained to evaluate responsiveness to Remicade infusions. 3. Abdominal xrays in am. The hand brim ironer has discussed the risks, benefits and alternative therapies for the above-mentioned procedure and for both sedation/analgesia as well as necessary blood product administration, if indicated, as they pertain to this patient. The patient has indicated understanding and acceptance of the risks and procedures discussed. Thank you for this kind referral and the opportunity to participate in the care of your patient. This consultation was discussed with Dr. Ruffin. The impression and plan of care have been directed as dictated.
[2018-12-18] MEDS: methylPREDNISolone SOD SUCCI 40 MG/ML 1 ML VIAL IV SCH ×2 (15:39→23:04)
[2018-12-18] MEDS: FAMOTIDINE 20 MG TAB PO SCH (20:13)
[2018-12-18] MEDS ORDERED: methylPREDNISolone SOD SUCCI 40 MG/ML 1 ML VIAL IV SCH (21:00)
[2018-12-19] MEDS: MORPHINE SULFATE 4 MG/ML SYRINGE IV PRN ×6 (02:08→22:46)
[2018-12-19] MEDS: IPRATROPIUM-ALBUTEROL 3 ML NEB INHALATION PRN (02:09)
[2018-12-19] MEDS: FAMOTIDINE 20 MG TAB PO SCH ×2 (07:58→20:51)
[2018-12-19] MEDS: SODIUM CHLORIDE 0.9% 1,000 ML IV SCH (07:59)
[2018-12-19] MEDS: methylPREDNISolone SOD SUCCI 40 MG/ML 1 ML VIAL IV SCH ×3 (07:59→23:39)
--- NOTE | 2018-12-19 08:41 | XR ---
EXAMINATION TYPE: XR abdomen complete w decub DATE OF EXAM: 12/19/2018 COMPARISON: 08/08/2017 HISTORY: Abdominal pain with history of Crohn's disease. TECHNIQUE: Supine, upright, and left side down lateral decubitus views of the abdomen are obtained. FINDINGS: Lung bases are well aerated. No pneumoperitoneum. There are cluster loops of mildly dilated small bowel in the central abdomen measuring up to 3.4 cm. No dilated large bowel. No suspicious danya cification in the abdomen or pelvis. Osseous structures appear intact. IMPRESSION: New cluster loops of dilated centralized small bowel. Given the history of Crohn's disease tethering and matting of small bowel centrally is possible with small bowel ileus. Small bowel follow-through c ould be considered if there is concern for early obstruction versus serial short-term follow-up abdom inal radiographs.
--- NOTE | 2018-12-19 11:06 | P.PN ---
Subjective Progress Note Date: 12/19/18 Principal diagnosis: Abdominal pain exacerbation of Crohn's disease Passing flatus no BMs. Patient requesting discharge after colonoscopy. Patient willing to proceed with colonoscopy tomorrow. Abdominal films this morning reported no obvious obstruction. Afebrile. Receiving IV steroids. Abdominal pain still present but controlled. CRP 6.7. Objective - Vital Signs Vital signs: Vital Signs Temp 98.0 F 12/19/18 04:50 Pulse 68 12/19/18 04:50 Resp 16 12/19/18 04:50 BP 113/71 12/19/18 04:50 Pulse Ox 97 12/19/18 04:50 Intake & Output 12/18/18 12/19/18 12/19/18 18:59 06:59 18:59 Intake Total 520 400 Balance 520 400 Intake: Oral 520 400 Other: # Voids 3 1 - Exam General appearance: The patient is alert, oriented, in no acute distress. HET: Head is normocephalic and atraumatic. Pupils are equal and reactive. Oropharynx is clear without lesions. Neck: Supple without lymphadenopathy. Trachea midline. Heart: S1 S2. Regular rate and rhythm. Lungs: No crackles or wheezes are heard. Abdomen: Soft, tenderness right lower quadrant, nondistended with bowel sounds. No peritoneal signs. No palpable organomegaly or masses. Extremities: Normal skin color and turgor. No cyanosis, rash, ulceration, clubbing, or edema. Radial and pedal pulses are 2/4 bilaterally. Neurological: No focal deficits. Strength and sensation are grossly intact. - Labs CBC & Chem 7: 12/18/18 09:01 12/18/18 09:01 Assessment and Plan (1) Abdominal pain Narrative/Plan: 33-year-old female with a history of Crohn's ileocolitis maintained on Remicade with multiple hospitalizations for partial small bowel obstructions exacerbation of Crohn's presents with acute abdominal pain nausea vomiting decreased bowel movements without fever chills or bleeding secondary to exacerbation of Crohn's ileitis underlying stricture disease cannot be excluded.. Current Visit: Yes Status: Acute Code(s): R10.9 - UNSPECIFIED ABDOMINAL PAIN SNOMED Code(s): 48168435 (2) Exacerbation of Crohn's disease of small intestine Current Visit: No Status: Acute Code(s): K50.00 - CROHN'S DISEASE OF SMALL INTESTINE WITHOUT COMPLICATIONS SNOMED Code(s): 107640795 Plan: 1. Clear liquids. Nothing by mouth after midnight. Continue IV Solu-Medrol 20 g every 8 hours. We'll proceed with colonoscopy for surveillance tomorrow. Daily CBC BMP. 2. Will check office records for recent blood work that was obtained to evaluate responsiveness to Remicade infusions. 3. Abdominal xrays report reviewed. 4. Patient understands that she may not tolerate bowel prep but is requesting to proceed with prep today/colonoscopy tomorrow. The knifer up has discussed the risks, benefits and alternative therapies for the above-mentioned procedure and for both sedation/analgesia as well as necessary blood product administration, if indicated, as they pertain to this patient. The patient has indicated understanding and acceptance of the risks and procedures discussed. Assessment and plan a care discussed with Dr. Ruffin
[2018-12-19] MEDS: LACTATED RINGERS 1,000 ML IV SCH (12:28)
[2018-12-19] MEDS ORDERED: PEG 3350-NA SULF,BICARB,CL/KCL 4,000 ML BOTTLE PO ONE (13:00)
--- NOTE | 2018-12-19 23:39 | P.PN ---
Subjective Progress Note Date: 12/19/18 12/19/2018 This is a 33 year old female that was admitted with a Crohns flare-up and abdominal cramping and is being closely monitored. GI is following. Patient is lying in bed resting but easily arousable. Patient is to begin the bowel prep for a colonoscopy tomorrow sometime. Patient is stating that she is having mild abdominal discomfort and feels very tired today. Patient denies much of an appetite. Patient denies any vomiting at this time, but has waves of nausea at times. Patient denies any chest pain, shortness of breath, or palpitations at this time. Patient will continue on systemic steroids until after the colonoscopy and will likely be discharged home on a prednisone taper. Further recommendations from GI is appreciated. Objective - Vital Signs Vital signs: Vital Signs Temp 98.3 F 12/19/18 19:16 Pulse 53 L 12/19/18 19:16 Resp 18 12/19/18 19:16 BP 145/94 12/19/18 19:16 Pulse Ox 98 12/19/18 19:16 Intake & Output 12/19/18 12/19/18 12/20/18 06:59 18:59 06:59 Intake Total 400 Balance 400 Intake: Oral 400 Other: # Voids 1 - Exam This is a 33 year old female lying in bed in no acute distress. Patients vitals are stable. BP is 113/71, pulse is 68, temp is 98.0F, resp are 16, and oxygen is 97% on room air HEENT: Normocephalic, atraumatic. Neck is supple. Pupils are reactive. Nostrils are clear. Oral cavity is moist. Ears have no drainage. Neck: supple. No JVD noted, or thyromegaly. Chest: Trachea is central. Symmetrical expansion. Cardiac: S1 and S2 are normal with no murmurs Respiratory: Lung sounds are clear to auscultation with no wheezing noted. No use of accessory muscles. Abdomen: soft, mild tenderness upon palpation, positive for bowel sounds in all four quadrants. Musculoskeletal: no joint swelling or deformity noted on exam. Extremities: no edema or swelling noted Nervous system: no focal deficits, gait is steady. CN1-12 intact. Patient is alert and oriented x3. Skin: no rashes or lesions noted on exam - Labs CBC & Chem 7: 12/18/18 09:01 12/18/18 09:01 Assessment and Plan Assessment: Nausea and vomiting with abdominal pain and cramping: Secondary to Crohn's flare-up. Patient will continue on systemic steroids. GI is following Pulmonary nodes seen on CT scan which is an incidental finding. Further work-up in the outpatient setting Depression Nicotine abuse: Counseling was provided DVT prophylaxis with early ambulation GI prophylaxis with Protonix Recommendations and discussions: Recommend current medications and symptomatic treatment. Will continue to monitor closely. Will monitor labs. Patient is to start a bowel prep for colonoscopy with GI tomorrow. Patient is to continue on systemic steroids. GI is following closely. Guarded prognosis. Further instructions to follow. Will await colonoscopy report. Possible discharge in 24-48 hours.
[2018-12-20] MEDS: MORPHINE SULFATE 4 MG/ML SYRINGE IV PRN ×3 (03:06→10:25)
[2018-12-20] MEDS: SODIUM CHLORIDE 0.9% 1,000 ML IV SCH ×2 (03:07→11:23)
[2018-12-20] MEDS: IPRATROPIUM-ALBUTEROL 3 ML NEB INHALATION PRN (05:50)
[2018-12-20] MEDS: methylPREDNISolone SOD SUCCI 40 MG/ML 1 ML VIAL IV SCH (07:16)
[2018-12-20] MEDS: FAMOTIDINE 20 MG TAB PO SCH (07:20)
[2018-12-20] MEDS: LACTATED RINGERS 1,000 ML IV SCH (07:22)
[2018-12-20 07:58] VITALS: TEMP 98.2
[2018-12-20] MEDS ORDERED: SODIUM CHLORIDE 0.9% 1,000 ML IV ONE (10:01)
--- NOTE | 2018-12-20 10:21 | P.PCN ---
Date of Procedure: 12/20/18 Procedure(s) Performed: BRIEF HISTORY: Patient is a 33-year-old pleasant white female, admitted to the hospital with exacerbation of Crohn's ileocolitis. Patient presents to the hospital with nausea vomiting and abdominal pain. CT of abdomen showed thickening of the terminal ileum with dilated small bowel loops suggestive of partial small bowel obstruction. He was started on IV steroids and his symptoms improved area she is scheduled for colonoscopy to evaluate further. Patient is maintained on Remicade infusions for the last 5 years. PROCEDURE PERFORMED: Colonoscopy random biopsies. PREOPERATIVE DIAGNOSIS: History of procedure colitis 3-6 exacerbation. IV sedation per Anesthesia. PROCEDURE: After informed consent was obtained, the patient, was brought into the endoscopy unit. IV sedation was administered by Anesthesia under continuous monitoring. Digital rectal examination was normal. Initially the Olympus CF-160 flexible video colonoscope was then inserted in the rectum, gradually advanced into the cecum without any difficulty. Careful examination was performed as the scope was gradually being withdrawn. Ileocecal valve and the appendiceal orifice were visualized and appeared normal. Prep was excellent. Terminal ileum was intubated and 20 cm visualized with the risks scattered erosions identified. No ulcerations or strictures seen. Mucosa of the cecum, ascending colon, transverse colon, descending colon, sigmoid colon, and rectum appeared normal. There was some scarring noted in the transverse colon and the descending colon. Random biopsies were done from this area. Retroflexion was performed in the rectum and no lesions were seen. The patient tolerated the procedure well. IMPRESSION: Scattered erosions the terminal ileum status post biopsies Colon appeared normal with no evidence of colitis or colorectal neoplasia RECOMMENDATIONS: Findings of this examination were discussed with the patient as a family. She will continue with oral prednisone 40 mg daily and diet will be advanced as tolerated. She can be discharged home today. She was advised to taper the prednisone by 5 mg every week and continue with Remicade infusions an outpatient basis..
[2018-12-20 10:58] VITALS: BP 138/97; PULSE 73; RESP 20
--- NOTE | 2018-12-21 18:18 | P.DS ---
Providers Date of admission: 12/17/18 17:53 Expected date of discharge: 12/20/18 Attending physician: Misha Garcia Primary care physician: Madison Vick [facility] Course: Final diagnosis Nausea and vomiting with abdominal pain and cramping: Secondary to Crohn's flareup Pulmonary nodes seen on CT scan: Further work-up in the outpatient setting Depression Nicotine abuse DVT prophylaxis GI prophylaxis Discharge disposition The patient is being discharged home in a stable condition with guarded prognosis. Patient is to continue receiving Remicade in the outpatient setting as discussed with GI. Patient will go home per GI recommendations on a prednisone taper. History of present illness This is a 33-year-old female that was admitted with nausea and vomiting and abdominal pain with a Crohn's flareup. GI was following closely. Patient underwent a colonoscopy today which showed scattered erosions at the terminal ileum status post biopsies in the colon appeared normal with no evidence of colitis or colorectal neoplasia. Patient denies any shortness of breath, chest pain, or palpitations at this time. Patient denies any nausea or vomiting and is tolerating clear liquids. Patient is to advance diet as tolerated. Patient is afebrile. Patient is having some mild to moderate lower abdominal discomfort upon palpation. Patient is stable with some improvement. On exam vital signs are stable. Blood pressure is 138/97, pulse is 73, respirations are 20, oxygen saturation is 95% on room air, temp is 98.2 F. Cardio S1 and S2 are normal. Respiratory system is clear to auscultation. Abdomen is soft, and tender upon palpation with no palpable masses. Nervous system shows no focal deficits and gait is steady. Please refer to the medication reconciliation sheet for a list of medications. Patient Condition at Discharge: Stable Plan - Discharge Summary New Discharge Prescriptions: New predniSONE 0 mg PO DIRECTED #123 tab Continue Albuterol Sulfate [Ventolin HFA] 1 puff INHALATION RT-BID PRN PRN Reason: Shortness Of Breath Discharge Medication List Albuterol Sulfate [Ventolin HFA] 1 puff INHALATION RT-BID PRN 09/18/14 [History] predniSONE 0 mg PO DIRECTED #123 tab 12/20/18 [Rx] Follow up Appointment(s)/Referral(s): Madison Vick MD [Primary Care Provider] - 12/26/18 10:45 am (New office located next door to old office. ) Le Ruffin MD [STAFF PHYSICIAN] - 01/02/19 5:00 pm Patient Instructions/Handouts: Crohn Disease (DC), Colonoscopy (DC) Activity/Diet/Wound Care/Special Instructions: Activity limited until follow-up regular diet as tolerated Patient to continue current prednisone taper until complete. colonoscopy 12/20/18 w/ biopsies Discharge Disposition: HOME SELF-CARE
== END 2018-12-20 13:12 | disposition home or self-care (01) | DRG 387 ==
LOC: EC 15:20 → 4MS4W 17:53 → 4SSUR 12-19 15:24
PROVIDERS: ADMIT Hospitalist; ATTEND Hospitalist
PROC: 0DBL8ZX Excision of Transverse Colon, Via Natural or Artificial Opening Endoscopic, Diagnostic (ICD-10-PCS; 2018-12-20)
PROC: 0DBB8ZX Excision of Ileum, Via Natural or Artificial Opening Endoscopic, Diagnostic (ICD-10-PCS; 2018-12-20)
PROC: 0DBM8ZX Excision of Descending Colon, Via Natural or Artificial Opening Endoscopic, Diagnostic (ICD-10-PCS; principal; 2018-12-20 14:25)
DX: K50.80 Crohn's disease of both small and large intestine without complications (principal); Z71.6 Tobacco abuse counseling; F17.210 Nicotine dependence, cigarettes, uncomplicated; F32.9 Major depressive disorder, single episode, unspecified; K57.30 Diverticulosis of large intestine without perforation or abscess without bleeding; R91.8 Other nonspecific abnormal finding of lung field
CPT/HCPCS: 36415; 45380; 74021; 74177; 80048; 80053; 81003; 81025; 82150; 83605; 83690; 85025; 86140; 88305; 94640; 96361; 96372; 96374; 96375; 99285

== ENCOUNTER → 2018-12-17 | Outpatient (CLI) | payer BC, OTHER ==
[2018-12-17 12:38] VITALS: TEMP 98.2
[2018-12-17 12:55] LABS: ALT 13 U/L (9-52); AST 16 U/L (14-36); African American GFR (CKD) >90 (>60 ml/min/1.73 sqM); Albumin 4.2 g/dL (3.5-5.0); Alkaline Phosphatase 53 U/L (38-126); Anion Gap 9 mmol/L; Blood Urea Nitrogen 9 mg/dL (7-17); Calcium 9.4 mg/dL (8.4-10.2); Carbon Dioxide 24 mmol/L (22-30); Chloride 105 mmol/L (98-107); Glucose 94 mg/dL (74-99); Non-African American GFR(CKD) >90 (>60 ml/min/1.73 sqM); Potassium 3.7 mmol/L (3.5-5.1); Sodium 138 mmol/L (137-145); Total Bilirubin 0.7 mg/dL (0.2-1.3); Total Protein 7.1 g/dL (6.3-8.2)
[2018-12-17 12:57] LABS: Basophils % (A) 0 %; Eosinophils # (A) 0.1 k/uL (0-0.7); Eosinophils % (A) 1 %; HCT 43.2 % (34.0-46.0); HGB 13.8 gm/dL (11.4-16.0); Lymphocytes # (A) 1.7 k/uL (1.0-4.8); Lymphocytes % (A) 16 %; MCH 29.8 pg (25.0-35.0); MCHC 31.9 g/dL (31.0-37.0); MCV 93.3 fL (80.0-100.0); Mean Platelet Volume 8.3; Monocytes # (A) 0.5 k/uL (0-1.0); Monocytes % (A) 5 %; Neutrophils # (A) 8.2 k/uL (1.3-7.7); Neutrophils % (A) 77 %; Platelet Count 257 k/uL (150-450); RBC 4.63 m/uL (3.80-5.40); RDW 14.3 % (11.5-15.5); WBC 10.7 k/uL (3.8-10.6)
[2018-12-17 13:52] VITALS: PULSE 76; RESP 16
[2018-12-17 14:16] VITALS: BP 112/73
[2018-12-17 16:35] LABS: Erythrocyte Sedimentation Rate 8 mm/hr (0-20)
== END ==
LOC: PROCWHC3 12:17
PROVIDERS: ATTEND Internal Medicine Gastroenterology
DX: K50.80 Crohn's disease of both small and large intestine without complications (principal)
CPT/HCPCS: 80053; 85652; 85025; 86141; 96413; 96415; 36415; Q5103; 80299; 82397

== ENCOUNTER 2019-02-19 18:08 | Emergency (ER) | payer BC, OTHER ==
[2019-02-19] MEDS ORDERED: SODIUM CHLORIDE 0.9% 1,000 ML IV STA (19:24)
[2019-02-19] MEDS ORDERED: ONDANSETRON 4 MG/2 ML VIAL IVP STA (19:24)
[2019-02-19] MEDS ORDERED: HYDROmorphone 0.5 MG/0.5 ML SYRINGE IVP STA (19:24)
--- NOTE | 2019-02-19 19:33 | ED ---
General Adult HPI - General Chief complaint: Nausea/Vomiting/Diarrhea Stated complaint: Crohn's flare up Time Seen by Provider: 02/19/19 19:13 Source: patient Mode of arrival: ambulatory Limitations: no limitations - History of Present Illness Initial comments: 33-year-old female patient with past medical history significant for Crohn's colitis presents to the emergency department today for evaluation of lower abdominal pain, vomiting, and diarrhea. Patient states that symptoms have been present for the last 2-3 days. States today there worsening. States she is unable to keep down any food or fluids. Denies any hematochezia, melena, hematemesis with this. Denies any fever. Denies any history of abdominal surgery. Patient states symptoms are consistent with her usual Crohn's flareups. Patient states she is currently receiving Inflectra to manage Crohn's symptoms. She was due for an infusion on 02/12/19, but has not heard back from her GI specialist to schedule the next dose. She denies taking any medication for her symptoms today. Patient denies any recent rash, shortness breath, chest pain, back pain, numbness, tingling, dizziness, weakness, hematuria, dysuria, urinary urgency, urinary frequency, headache, visual changes, or any other complaints. - Related Data Home Medications Medication Instructions Recorded Confirmed Albuterol Sulfate [Proair Hfa] 2 puff INHALATION RT-QID PRN 02/19/19 02/19/19 Previous Rx's Medication Instructions Recorded Acetaminophen-Codeine 300-30mg 1 tab PO Q6H PRN #12 tablet 02/19/19 [Tylenol #3] Ondansetron [Zofran ODT] 4 mg PO Q8HR PRN #20 tab 02/19/19 predniSONE 50 mg PO DAILY #5 tablet 02/19/19 Allergies Allergy/AdvReac Type Severity Reaction Status Date / Time No Known Allergies Allergy Verified 02/19/19 20:16 Review of Systems ROS Statement: Those systems with pertinent positive or pertinent negative responses have been documented in the HPI. ROS Other: All systems not noted in ROS Statement are negative. Past Medical History Past Medical History: No Reported History Additional Past Medical History / Comment(s): Crohn's, bowel obstructions, hypoglycemia History of Any Multi-Drug Resistant Organisms: None Reported Past Surgical History: Adenoidectomy, Section Additional Past Surgical History / Comment(s): Colonoscopy Past Anesthesia/Blood Transfusion Reactions: No Reported Reaction Past Psychological History: Depression Smoking Status: Current some day smoker Past Alcohol Use History: Rare Past Drug Use History: Marijuana - Past Family History Mother Family Medical History: No Reported History Additional Family Medical History / Comment(s): Mother is healthy Father History Unknown: Yes Additional Family Medical History / Comment(s): Pt does not know her father. General Exam Limitations: no limitations General appearance: alert, in no apparent distress, other (This is a well- developed, well-nourished adult female patient in no acute distress vital signs upon presentation are temperature 97.4F, pulse 69, respirations 18, blood pressure 127/84, pulse ox 98% on room air) Eye exam: Present: normal appearance, PERRL, EOMI. Absent: scleral icterus, conjunctival injection, periorbital swelling ENT exam: Present: normal exam, normal oropharynx, mucous membranes moist Respiratory exam: Present: normal lung sounds bilaterally. Absent: respiratory distress, wheezes, rales, rhonchi, stridor Cardiovascular Exam: Present: regular rate, normal rhythm, normal heart sounds. Absent: systolic murmur, diastolic murmur, rubs, gallop, clicks GI/Abdominal exam: Present: soft, tenderness (Lower abdominal tenderness), normal bowel sounds. Absent: distended, guarding, rebound, rigid Neurological exam: Present: alert, oriented X3, CN II-XII intact Psychiatric exam: Present: normal affect, normal mood Skin exam: Present: warm, dry, intact, normal color. Absent: rash Course Vital Signs 02/19/19 02/19/19 18:34 20:08 Temperature 97.4 F L Pulse Rate 69 Respiratory 18 16 Rate Blood Pressure 127/84 132/94 O2 Sat by Pulse 98 Oximetry Medical Decision Making - Medical Decision Making 33-year-old female patient presents to the emergency department today for evaluation of lower abdominal pain, vomiting, and diarrhea. Patient does have history of Crohn's disease and feels this is she is having an exacerbation. Patient states that symptoms are present for the last 2-3 days. Physical examination did reveal lower abdominal tenderness. Labs reviewed and did reveal elevated white blood cell count is 17.5. ESR and CRP were negative. Patient was given IV fluids, IV pain medication nausea medication here in the emergency department. Upon reevaluation she does report improvement of symptoms. Given white blood cell count and area tenderness we did discuss computed tomography sc an. Patient has had CT earlier this year. Patient states that symptoms are very consistent with her Crohn's and agrees not to undergo CT at this time. She'll be discharged home with a burst of steroids, Zofran and pain medication. She is instructed to follow-up with her GI specialist for recheck as soon as possible. She is instructed to follow-up with her primary care physician for recheck in 1-2 days. Return parameters were discussed in detail. She verbalizes understanding and agrees with this plan - Lab Data Result diagrams: 02/19/19 19:54 02/19/19 19:54 Lab Results 02/19/19 02/19/19 02/19/19 Range/Units 19:45 19:54 19:54 WBC 17.5 H (3.8-10.6) k/uL RBC 4.67 (3.80-5.40) m/uL Hgb 13.3 (11.4-16.0) gm/dL Hct 43.1 (34.0-46.0) % MCV 92.3 (80.0-100.0) fL MCH 28.5 (25.0-35.0) pg MCHC 30.8 L (31.0-37.0) g/dL RDW 14.4 (11.5-15.5) % Plt Count 286 (150-450) k/uL Neutrophils % 93 % Lymphocytes % 5 % Monocytes % 2 % Eosinophils % 0 % Basophils % 0 % Neutrophils # 16.2 H (1.3-7.7) k/uL Lymphocytes # 0.8 L (1.0-4.8) k/uL Monocytes # 0.3 (0-1.0) k/uL Eosinophils # 0.0 (0-0.7) k/uL Basophils # 0.1 (0-0.2) k/uL ESR 2 (0-20) mm/hr Sodium 140 (137-145) mmol/L Potassium 3.9 (3.5-5.1) mmol/L Chloride 106 (98-107) mmol/L Carbon Dioxide 22 (22-30) mmol/L Anion Gap 12 mmol/L BUN 8 (7-17) mg/dL Creatinine 0.60 (0.52-1.04) mg/dL Est GFR (CKD-EPI)AfAm >90 (>60 ml/min/1.73 sqM) Est GFR (CKD-EPI)NonAf >90 (>60 ml/min/1.73 sqM) Glucose 203 H (74-99) mg/dL Calcium 9.7 (8.4-10.2) mg/dL Total Bilirubin 0.5 (0.2-1.3) mg/dL AST 17 (14-36) U/L ALT 14 (9-52) U/L Alkaline Phosphatase 67 (38-126) U/L C-Reactive Protein <5.0 (<10.0) mg/L Total Protein 7.7 (6.3-8.2) g/dL Albumin 4.5 (3.5-5.0) g/dL Amylase 40 (30-110) U/L Lipase 31 (23-300) U/L Urine HCG, Qual Not Detected (Not Detectd) Disposition Clinical Impression: Exacerbation of Crohn's disease, Abdominal pain Disposition: HOME SELF-CARE Condition: Good Instructions (If sedation given, give patient instructions): Crohn Disease (ED), Abdominal Pain (ED) Additional Instructions: Take medications as directed. Follow-up with her GI specialist for further evaluation as soon as possible. Return to the emergency department immediately for any new, worsening, or concerning symptoms. Prescriptions: predniSONE 50 mg PO DAILY #5 tablet Acetaminophen-Codeine 300-30mg [Tylenol #3] 1 tab PO Q6H PRN #12 tablet PRN Reason: Pain Ondansetron [Zofran ODT] 4 mg PO Q8HR PRN #20 tab PRN Reason: Nausea Is patient prescribed a controlled substance at d/c from ED?: Yes When asked, does pt state using other controlled substances?: No If prescribed controlled substance>3 days was MAPS reviewed?: Prescribed <3 Days If opioid is for acute pain is fill amount 7 days or less?: Yes If Rx opioid, was Start Talking consent form obtained?: Yes Referrals: Madison Vick MD [Primary Care Provider] - 1-2 days Le Ruffin MD [STAFF PHYSICIAN] - 1-2 days Time of Disposition: 21:23
[2019-02-19 20:04] LABS: Basophils # (A) 0.1 k/uL (0-0.2); Basophils % (A) 0 %; Eosinophils % (A) 0 %; HCT 43.1 % (34.0-46.0); HGB 13.3 gm/dL (11.4-16.0); Lymphocytes # (A) 0.8 k/uL (1.0-4.8); Lymphocytes % (A) 5 %; MCH 28.5 pg (25.0-35.0); MCHC 30.8 g/dL (31.0-37.0); MCV 92.3 fL (80.0-100.0); Mean Platelet Volume 7.3; Monocytes # (A) 0.3 k/uL (0-1.0); Monocytes % (A) 2 %; Neutrophils # (A) 16.2 k/uL (1.3-7.7); Neutrophils % (A) 93 %; Platelet Count 286 k/uL (150-450); RBC 4.67 m/uL (3.80-5.40); RDW 14.4 % (11.5-15.5); WBC 17.5 k/uL (3.8-10.6)
[2019-02-19 20:10] VITALS: RESP 16
[2019-02-19 20:18] LABS: ALT 14 U/L (9-52); AST 17 U/L (14-36); African American GFR (CKD) >90 (>60 ml/min/1.73 sqM); Albumin 4.5 g/dL (3.5-5.0); Alkaline Phosphatase 67 U/L (38-126); Amylase 40 U/L (30-110); Anion Gap 12 mmol/L; Blood Urea Nitrogen 8 mg/dL (7-17); C Reactive Protein <5.0 mg/L (<10.0); Calcium 9.7 mg/dL (8.4-10.2); Carbon Dioxide 22 mmol/L (22-30); Chloride 106 mmol/L (98-107); Glucose 203 mg/dL (74-99); Potassium 3.9 mmol/L (3.5-5.1); Sodium 140 mmol/L (137-145); Total Bilirubin 0.5 mg/dL (0.2-1.3); Total Protein 7.7 g/dL (6.3-8.2)
[2019-02-19 20:46] LABS: Erythrocyte Sedimentation Rate 2 mm/hr (0-20)
--- NOTE | 2019-02-19 20:56 | XR ---
EXAMINATION TYPE: XR KUB DATE OF EXAM: 02/19/2019 COMPARISON: 12/19/2018 HISTORY: Crohn's disease. Nausea and vomiting. TECHNIQUE: 2 views FINDINGS: 2 upright views were obtained and show no sign of intestinal obstruction or pneumoperitoneu m. Fecal pattern is normal. Lung bases are clear. IMPRESSION: Nonacute abdomen. No adverse change.
[2019-02-19] MEDS ORDERED: ACET/COD 300 MG/30 MG STARTER PACK 6 TAB BTL PO STA (21:20)
[2019-02-19] MEDS ORDERED: ONDANSETRON 4 MG ODT STARTER PACK 2 TAB BTL PO STA (21:20)
[2019-02-19] MEDS ORDERED: methylPREDNISolone SOD SUCCI 125 MG/2 ML VIAL IV STA (21:21)
[2019-02-19 21:37] VITALS: BP 96/63; PULSE 66; TEMP 98.2
== END 2019-02-19 21:45 | disposition home or self-care (01) ==
LOC: EC 18:08
DX: K50.10 Crohn's disease of large intestine without complications (principal); D72.829 Elevated white blood cell count, unspecified; R11.2 Nausea with vomiting, unspecified; F17.200 Nicotine dependence, unspecified, uncomplicated
CPT/HCPCS: 36415; 80053; 85652; 82150; 83690; 85025; 86140; 81025; 74018; 99284; 96374; 96375 ×2; 96361; J2930; J2405; S0119; J1170

== ENCOUNTER → 2019-03-11 | Outpatient (CLI) | payer BC, OTHER ==
[2019-03-11 20:11] LABS: Hepatitis B Surface Antigen Non-Reactive (Non-Reactive); Hepatitis C IgG Antibody Non-Reactive (Non-Reactive)
== END | disposition home or self-care (01) ==
LOC: LABWHC1 08:13
PROVIDERS: ATTEND Internal Medicine Gastroenterology
DX: K50.90 Crohn's disease, unspecified, without complications (principal)
CPT/HCPCS: 36415; 86803; 87340

== ENCOUNTER 2019-05-26 04:08 | Observation (INO) | payer BC, OTHER ==
--- NOTE | 2019-05-26 04:26 | ED ---
Chest Pain HPI - General Chief Complaint: Chest Pain Stated Complaint: Chest pain/SOB Time Seen by Provider: 05/26/19 04:16 Source: patient Mode of arrival: ambulatory Limitations: no limitations - History of Present Illness Initial Comments: Abbey a 33-year-old female with a medical history negative for Crohn's disease which is well-controlled with Remicade. Patient also had childhood asthma and is in every day cigarette smoker. Patient presents the emergency department today for evaluation of sharp chest pain. Patient reports this began a few days ago, she had a couple of episodes of sharp pain with deep inspiration and coughing however pain seemed to go away for a short period time so she didn't seek any care. Patient states that tonight she was at work had a coughing episode and again had some of the sharp chest pain. Patient reports she's continued to have symptoms since approximately 2 AM. Chest pain is described as a sharp stabbing Her Entire Chest. Worse with Deep Inspiration. She Cannot Identify Any Relieving Factors. She Is Not Taking Any Medications. Patient Has No History of DVT or PE No Family History of Clotting Disorder That She Is Aware of but She Has No Contact with Her Paternal Side of the Family. She Denies Any a Cardiac Disease. - Related Data Home Medications Medication Instructions Recorded Confirmed Albuterol Sulfate [Proair Hfa] 2 puff INHALATION RT-QID PRN 02/19/19 02/19/19 Previous Rx's Medication Instructions Recorded Acetaminophen-Codeine 300-30mg 1 tab PO Q6H PRN #12 tablet 02/19/19 [Tylenol #3] Ondansetron [Zofran ODT] 4 mg PO Q8HR PRN #20 tab 02/19/19 predniSONE 50 mg PO DAILY #5 tablet 02/19/19 Allergies Allergy/AdvReac Type Severity Reaction Status Date / Time No Known Allergies Allergy Verified 05/26/19 04:15 Review of Systems ROS Statement: Those systems with pertinent positive or pertinent negative responses have been documented in the HPI. ROS Other: All systems not noted in ROS Statement are negative. EKG Findings - EKG Comments: EKG Findings:: CT was obtained due to complaint of chest pain, EKG obtained at 4:22 AM, Past Medical History Past Medical History: No Reported History Additional Past Medical History / Comment(s): Crohn's, bowel obstructions, hypoglycemia History of Any Multi-Drug Resistant Organisms: None Reported Past Surgical History: Adenoidectomy, Section Additional Past Surgical History / Comment(s): Colonoscopy Past Anesthesia/Blood Transfusion Reactions: No Reported Reaction Past Psychological History: Depression Smoking Status: Current every day smoker Past Alcohol Use History: Rare Past Drug Use History: Marijuana - Past Family History Mother Family Medical History: No Reported History Additional Family Medical History / Comment(s): Mother is healthy Father History Unknown: Yes Additional Family Medical History / Comment(s): Pt does not know her father. General Exam - General Exam Comments Initial Comments: Physical Exam GENERAL: Patient is well-developed and well-nourished. Patient is nontoxic and well- hydrated and is in no distress. HENT: Normocephalic, Atraumatic. EYES: PERRL, EOMI PULMONARY: Unlabored respirations. No audible rales rhonchi or wheezing was noted. CARDIOVASCULAR: There is a regular rate and rhythm without any murmurs gallops or rubs. ABDOMEN: Soft and nontender with normal bowel sounds. SKIN: Skin is clear with no lesions or rashes and otherwise unremarkable. : Deferred NEUROLOGIC: Patient is alert and oriented x3. Moving all extremities spontaneously MUSCULOSKELETAL: Normal extremities with adequate strength and full range of motion. No lower extremity swelling or edema. No calf tenderness. PSYCHIATRIC: Normal psychiatric evaluation. Limitations: no limitations Course Vital Signs 05/26/19 05/26/19 04:13 05:15 Temperature 98.2 F Pulse Rate 85 73 Respiratory 16 20 Rate Blood Pressure 105/71 113/70 O2 Sat by Pulse 100 97 Oximetry Chest Pain [facility] The patient was seen and evaluated history obtained from patient patient and review of medical record 33-year-old female with history of Crohn's presents in with pleuritic sided chest pain normal vital signs of hypoxia or tachycardia ekg was obtained due to complaint of chest pain, ekg was obtained at 4:22 am, rate is 82 rhythm is sinus is normal axis normal intervals and no acute st elevations or depressions no evidence of acute ischemia infarction. Chest x-ray was normal Labs resulted with no elevation of d-dimer, however troponin is elevated. Given the patient is a smoker with known chronic inflammatory condition and unknown family history and elevated troponin we will place her in observation unit have an echo done and serial troponins and evaluation by cardiology. Patient is agreeable. In addition decision was made to scan for any possible PE. Disposition Clinical Impression: Chest pain, pleuritic, Elevated troponin Disposition: ADMITTED IP TO THIS HOSP Condition: Stable Is patient prescribed a controlled substance at d/c from ED?: No Referrals: Madison Vick MD [Primary Care Provider] - 1-2 days
[2019-05-26] MEDS ORDERED: SODIUM CHLORIDE 0.9% 1,000 ML IV STA (04:47)
--- NOTE | 2019-05-26 05:03 | XR ---
EXAMINATION TYPE: XR chest 2V DATE OF EXAM: 05/26/2019 COMPARISON: 08/24/2018 HISTORY: Chest pain TECHNIQUE: FINDINGS: Heart and mediastinum are normal. Lungs are clear. Costophrenic angles are clear. There are no hilar masses. Bony thorax is intact. IMPRESSION: Normal chest. No change.
[2019-05-26 05:07] LABS: Basophils % (A) 1 %; Eosinophils % (A) 1 %; HCT 39.9 % (34.0-46.0); HGB 12.8 gm/dL (11.4-16.0); Lymphocytes # (A) 1.7 k/uL (1.0-4.8); Lymphocytes % (A) 32 %; MCH 28.3 pg (25.0-35.0); MCV 88.2 fL (80.0-100.0); Mean Platelet Volume 8.6; Monocytes # (A) 0.4 k/uL (0-1.0); Monocytes % (A) 7 %; Neutrophils % (A) 57 %; Platelet Count 260 k/uL (150-450); RBC 4.52 m/uL (3.80-5.40); RDW 15.6 % (11.5-15.5); WBC 5.3 k/uL (3.8-10.6)
[2019-05-26 05:12] LABS: ALT 11 U/L (4-34); AST 18 U/L (14-36); African American GFR (CKD) >90 (>60 ml/min/1.73 sqM); Albumin 4.3 g/dL (3.5-5.0); Alkaline Phosphatase 61 U/L (38-126); Anion Gap 10 mmol/L; Blood Urea Nitrogen 6 mg/dL (7-17); Calcium 10.2 mg/dL (8.4-10.2); Carbon Dioxide 23 mmol/L (22-30); Chloride 105 mmol/L (98-107); Glucose 84 mg/dL (74-99); Magnesium 1.8 mg/dL (1.6-2.3); Non-African American GFR(CKD) >90 (>60 ml/min/1.73 sqM); Potassium 3.7 mmol/L (3.5-5.1); Sodium 138 mmol/L (137-145); Total Bilirubin 0.5 mg/dL (0.2-1.3); Total Protein 7.6 g/dL (6.3-8.2)
[2019-05-26 05:16] LABS: D-Dimer 0.19 mg/L FEU (<0.60); Partial Thromboplastin Time 26.9 sec (22.0-30.0); Prothrombin Time 10.6 sec (9.0-12.0)
[2019-05-26] MEDS ORDERED: KETOROLAC 30 MG/ML 1 ML VIAL IVP ONE (05:25)
[2019-05-26] MEDS ORDERED: ASPIRIN 81 MG PO STA (05:46)
[2019-05-26] MEDS ORDERED: NITROGLYCERIN SL TABS 0.4 MG TAB SUBLINGUAL PRN (05:46)
[2019-05-26 06:01] LABS: Appearance,Urine Clear (Clear); Bilirubin,Urine Negative (Negative); Blood,Urine Negative (Negative); Color,Urine Light Yellow; Glucose,Urine (UA) Negative (Negative); Ketones,Urine Negative (Negative); Leukocyte Esterase,Urine Negative (Negative); Nitrite,Urine Negative (Negative); Protein,Urine Negative (Negative); Specific Gravity,Urine 1.005 (1.001-1.035); Urobilinogen,Urine <2.0 mg/dL (<2.0)
[2019-05-26 07:08] VITALS: TEMP 97.4
--- NOTE | 2019-05-26 07:52 | CT ---
EXAM: CT Angiography Chest With Intravenous Contrast CLINICAL HISTORY: ITS.REASON CT Reason: pleuritic pain, elevated trop TECHNIQUE: Axial computed tomographic angiography images of the chest with intravenous contrast. CTDI is 4.9 mGy and DLP is 198.9 mGy-cm. This CT exam was performed using one or more of the following dose reduction techniques: automated exposure control, adjustment of the mA and/or kV according to patient size, and/or use of iterative reconstruction technique. MIP reconstructed images were created and reviewed. Coronal and sagittal reformatted images were created and reviewed. COMPARISON: No relevant prior studies available. FINDINGS: Pulmonary arteries: No evidence of pulmonary embolism. Aorta: No acute findings. No thoracic aortic aneurysm. Lungs: Left lower lobe 4.7 mm and 2.7 mm nodules. Right lower lobe 2. 6 mm nodule. Right middle lobe 4.7 mm groundglass nodule. Right middle lobe 3 mm nodule. Right upper lobe 3.8 mm nodule. Pleural space: Unremarkable. No significant effusion. No pneumothorax. Heart: Unremarkable. No cardiomegaly. No significant pericardial effusion. No evidence of RV dysfunction. Bones/joints: Degenerative changes of the spine. No acute fracture. No dislocation. Soft tissues: Unremarkable. Lymph nodes: Unremarkable. No enlarged lymph nodes. IMPRESSION: 1. No evidence of pulmonary embolism. 2. Left lower lobe 4.7 mm and 2.7 mm nodules. Right lower lobe 2.6 mm nodule. Right middle lobe 4.7 mm groundglass nodule. Right middle lobe 3 mm nodule. Right upper lobe 3.8 mm nodule. No set protocol for patients under 35 years old. Consider 6-12 month follow up low-dose CT.
[2019-05-26] MEDS ORDERED: METOPROLOL TARTRATE 12.5 MG TAB PO SCH (12:30)
--- NOTE | 2019-05-26 12:39 | CONS ---
CONSULTATION This is a 33-year-old lady with a known diagnosis of bronchial asthma, Crohn disease for which she takes Remicade infusions every 8 weeks. She smokes at least a pack a day and also uses marijuana. She came to the hospital complaining of chest pain. Pain is located to the right side of the distal lower sternum. Pain is pleuritic in nature on and off, unrelated to physical activity. Her troponin was equivocally elevated and with ongoing chest pain, she had a workup including CT angio which was negative for pulmonary embolism and aortic pathology. Her pain is better. She is resting comfortably and has no significant symptoms at the time of my evaluation. PAST MEDICAL HISTORY: 1. Bronchial asthma. 2. Crohn's disease for which she takes Remicade infusions. 3. This patient also has previous adenoidectomy, a section and multiple colonoscopies. ALLERGIES: None. MEDICATIONS: Include Zofran p.r.n., she takes Remicade infusions, albuterol inhaler. PHYSICAL EXAMINATION: Blood pressure is 110/70, pulse rate is 82 per minute. HEENT: Unremarkable. Fundus was not examined by me. NECK: Supple. No JVD. I do not hear a carotid bruit. There is no thyromegaly. HEART: Exam reveals S1, S2 heard normally. No significant rub, murmur or gallop. LUNGS: Reveal scattered rhonchi. ABDOMEN: Soft, nontender. LOWER EXTREMITIES: Reveal normal pulses. No edema. CENTRAL NERVOUS SYSTEM: Grossly no focal deficits. EKG revealed a sinus mechanism, no acute changes. CT angiography is negative for any pulmonary embolism or aortic pathology. IMPRESSION: 1. Atypical chest pain with equivocal troponin, not suggestive of any myocardial injury. 2. History of Crohn's disease. 3. History of bronchial asthma. RECOMMENDATION: I am recommending that we will initiate her on a small dose of beta mulugeta and low- dose heparin protocol and obtain additional troponin levels. Her pain is atypical. Echo did not reveal any significant wall motion abnormalities. If the symptoms are negative, she can be discharged and have a stress test as an outpatient. I discussed my thoughts in detail with the patient. Thank you very much for the consult. MMODL / IJN: [id number] /
[2019-05-26 13:15] VITALS: PULSE 74; RESP 17
[2019-05-26 13:16] VITALS: BP 112/72
[2019-05-26] MEDS ORDERED: IPRATROPIUM-ALBUTEROL 3 ML NEB INHALATION PRN (14:24)
--- NOTE | 2019-05-26 14:30 | P.HPIM ---
History of Present Illness 33-year-old female came in with complains of chest pain which is sharp in nature radiating to the back. Chest pain is retrosternal, sharp moderate severity which resolved at this time denied any other radiation and patient denied any diaphoresis or shortness of breath lightheadedness associated with that. Her pain is not associated with food or deep breathing. Patient had a CAT scan of the chest rule out to rule out pulmonary embolism which did not show any PE but did show multiple nodules significant of which is not clear patient will be referred to pulmonology as an outpatient for this Patient does have history of asthma does smoke is wheezing on exam. Patient does use marijuana as well. Patient does have Crohn's disease very thin built female because of Crohn's disease and patient Remicade infusions IV for Crohn's disease. EKG did not show any significant abnormality and patient has minimally elevated troponins of 0.04, cariology evaluated the patient and not recommending any further evaluation except for an echocardiogram and if that doesn't show any wall motion abnormalities patient can be discharged from that perspective with a low-dose beta mulugeta. Review of Systems REVIEW OF SYSTEMS: CONSTITUTIONAL: No fever, no malaise, no fatigue. HEENT: No recent visual problems or hearing problems. Denied any sore throat. CARDIOVASCULAR: No orthopnea, PND, no palpitations, no syncope. PULMONARY: No shortness of breath, no cough, no hemoptysis. GASTROINTESTINAL: No diarrhea, no nausea, no vomiting, no abdominal pain. NEUROLOGICAL: No headaches, no weakness, no numbness. HEMATOLOGICAL: Denies any bleeding or petechiae. GENITOURINARY: Denies any burning micturition, frequency, or urgency. MUSCULOSKELETAL/RHEUMATOLOGICAL: Denies any joint pain, swelling, or any muscle pain. ENDOCRINE: Denies any polyuria or polydipsia. The rest of the 14-point review of systems is negative. Past Medical History Past Medical History: No Reported History Additional Past Medical History / Comment(s): Crohn's, bowel obstructions, hypoglycemia History of Any Multi-Drug Resistant Organisms: None Reported Past Surgical History: Adenoidectomy, Section Additional Past Surgical History / Comment(s): Colonoscopy Past Anesthesia/Blood Transfusion Reactions: No Reported Reaction Smoking Status: Current every day smoker - Past Family History Mother Family Medical History: Diabetes Mellitus Additional Family Medical History / Comment(s): Mother is healthy Father History Unknown: Yes Additional Family Medical History / Comment(s): Pt does not know her father. Medications and Allergies Home Medications Medication Instructions Recorded Confirmed Type Albuterol Sulfate [Proair Hfa] 2 puff INHALATION RT-Q6H 05/26/19 05/26/19 History Fluticasone/Salmeterol [Advair 1 inhalation PO BID #1 inhaler 05/26/19 Rx 250-50 Diskus] Metoprolol Tartrate [Lopressor] 12.5 mg PO BID #60 tab 05/26/19 Rx Allergies Allergy/AdvReac Type Severity Reaction Status Date / Time No Known Allergies Allergy Verified 05/26/19 08:44 Physical Exam Vitals: Vital Signs Temp Pulse Pulse Resp BP BP Pulse Ox 05/26/19 12:00 74 17 112/72 05/26/19 07:45 89 18 109/81 98 05/26/19 07:00 97.4 F L 78 20 106/77 98 05/26/19 06:00 78 20 103/75 98 05/26/19 05:15 73 20 113/70 97 05/26/19 04:13 98.2 F 85 16 105/71 100 Intake and Output 05/25/19 05/26/19 05/26/19 22:59 06:59 14:59 Other: Weight 52.163 kg 52.163 kg PHYSICAL EXAMINATION: GENERAL: The patient is alert and oriented x3, not in any acute distress. Thin built female HEENT: Pupils are round and equally reacting to light. EOMI. No scleral icterus. No conjunctival pallor. Normocephalic, atraumatic. No pharyngeal erythema. No thyromegaly. CARDIOVASCULAR: S1 and S2 present. No murmurs, rubs, or gallops. PULMONARY: Mild to moderate expiratory wheezing on exam presented bilateral lung sidhu crackles were appreciated ABDOMEN: Soft, nontender, nondistended, normoactive bowel sounds. No palpable organomegaly. MUSCULOSKELETAL: No joint swelling or deformity. EXTREMITIES: No cyanosis, clubbing, or pedal edema. NEUROLOGICAL: Gross neurological examination did not reveal any focal deficits. SKIN: No rashes. Results CBC & Chem 7: 05/26/19 04:32 05/26/19 04:32 Labs: Abnormal Lab Results - Last 24 Hours (Table) 05/26/19 05/26/19 05/26/19 Range/Units 04:32 04:32 04:32 RDW 15.6 H (11.5-15.5) % BUN 6 L (7-17) mg/dL Troponin I 0.056 H* (0.000-0.034) ng/mL 05/26/19 Range/Units 12:04 RDW (11.5-15.5) % BUN (7-17) mg/dL Troponin I 0.046 H* (0.000-0.034) ng/mL Thrombosis Risk Factor Assmnt - Choose All That Apply Any of the Below Risk Factors Present?: No Other Risk Factors: No Other congenital or acquired thrombophilia - If yes, enter type in comment: No Thrombosis Risk Factor Assessment Level: Very Low Risk Assessment and Plan Plan: -Chest pain atypical with ruled out acute coronary syndromes and unstable angina, echocardiogram will be obtained if that's negative patient probably can be discharged. -Incidental finding of multiple pulmonary nodules significant of which is unknown refer her to pulmonary as an outpatient -Asthma with acute exacerbation nicotine cessation counseling was provided patient does cough with whitish phlegm production patient will be started on inhaled steroids and inhalational treatments she feels better patient probably can be discharged today. -History of Crohn's not in Crohn's exacerbation because of the pain radiating to the back also rule out any gallbladder disease or gallstones with an ultrasound.
--- NOTE | 2019-05-26 15:23 | P.DS ---
Providers Date of admission: 05/26/19 05:46 Attending physician: Misha Garcia Consults: 05/26/19 05:46 Consult Physician Urgent Consulting Provider: [facility] Consult Reason/Comments: chest pain, elevated trop - smoker, Chron's disease, no hx, d-dimer neg Do you want consulting provider notified?: Yes, Notify in am Primary care physician: Madison Vick [facility] Course: Patient wanted to go home if cleared by cardiology patient is still wheezing patient will be discharged on inhaled steroids and patient will continue her albuterol patient will follow with the pulmonology as an outpatient for his nonspecific pulmonary nodules. Please refer to my dictation of H&P for further details ultrasound of the abdomen is not being obtained as patient wanted to be discharged and if patient starts having this chest pain radiating to the back pain cholelithiasis one thing that need to be excluded. As per cardiology documentation there are no wall motion abnormalities on echocardiogram. Patient Condition at Discharge: Stable Plan - Discharge Summary Discharge Rx Participant: No New Discharge Prescriptions: New Fluticasone/Salmeterol [Advair 250-50 Diskus] 1 inhalation PO BID #1 inhaler Metoprolol Tartrate [Lopressor] 12.5 mg PO BID #60 tab No Action Albuterol Sulfate [Proair Hfa] 2 puff INHALATION RT-Q6H Discharge Medication List Albuterol Sulfate [Proair Hfa] 2 puff INHALATION RT-Q6H 05/26/19 [History] Fluticasone/Salmeterol [Advair 250-50 Diskus] 1 inhalation PO BID #1 inhaler 05/26/19 [Rx] Metoprolol Tartrate [Lopressor] 12.5 mg PO BID #60 tab 05/26/19 [Rx] Follow up Appointment(s)/Referral(s): Madison Vick MD [Primary Care Provider] - 3 Days (SundayJune 03 at 3:30pm) Bree Dash MD [STAFF PHYSICIAN] - 1 Week (please arrive 20 minutes early to appt SundayJune 10 at 2:45pm) Patient Instructions/Handouts: Chest Pain (DC), How to Stop Smoking (DC) Discharge Disposition: HOME SELF-CARE
[2019-05-26] MEDS ORDERED: SYMBICORT 160-4.5 MCG INHALER INHALATION SCH (20:00)
[2019-05-27] MEDS ORDERED: ASPIRIN 325 MG TAB PO SCH (09:00)
[2019-05-27] MEDS ORDERED: ASPIRIN 81 MG PO SCH (09:00)
--- NOTE | 2019-05-27 12:37 | ECHOF ---
Referral Reason:abn trop MEASUREMENTS -------- HEIGHT: 160.0 cm WEIGHT: 52.2 kg BP: RVIDd: 2.8 cm (< 3.3) IVSd: 0.8 cm (0.6 - 1.1) LVIDd: 4.2 cm (3.9 - 5.3) LVPWd: 1.0 cm (0.6 - 1.1) IVSs: 1.2 cm LVIDs: 3.1 cm LVPWs: 1.7 cm LA Diam: 3.2 cm (2.7 - 3.8) Ao Diam: 2.5 cm (2.0 - 3.7) AV Cusp: 1.8 cm (1.5 - 2.6) MV EXCURSION: 24.534 mm (> 18.000) MV EF SLOPE: 134 mm/s (70 - 150) EPSS: 0.4 cm MV E Dhaval: 0.77 m/s MV DecT: 137 ms MV A Dhaval: 0.57 m/s MV E/A Ratio: 1.35 RAP: 5.00 mmHg RVSP: 8.81 mmHg FINDINGS -------- Sinus rhythm. This was a technically good study. LV size, wall thickness and systolic function are normal, with an EF greater than 55%. The left abhilash tricular size is normal. Overall left ventricular systolic function is normal with, an EF between 5 5 - 60 %. The diastolic filling pattern is normal for the age of the patient 6.41. The right ventricle is normal in size. The left atrial size is normal. The right atrial size is normal. The aortic valve is trileaflet, and appears structurally normal. No aortic stenosis or regurgitation. The mitral valve leaflets are mildly thickened. Mild mitral regurgitation is present. Mild tricuspid regurgitation present. Right ventricular systolic pressure is normal at < 35 mmHg. There is no evidence of pulmonary hypertension. There is no pulmonic regurgitation present. The aortic root size is normal. There is no pericardial effusion. CONCLUSIONS -------- 1. Sinus rhythm. 2. This was a technically good study. 3. LV size, wall thickness and systolic function are normal, with an EF greater than 55%. 4. The left ventricular size is normal. 5. Overall left ventricular systolic function is normal with, an EF between 55 - 60 %. 6. The diastolic filling pattern is normal for the age of the patient 6.41 7. The right ventricle is normal in size. 8. The left atrial size is normal. 9. The right atrial size is normal. 10. The aortic valve is trileaflet, and appears structurally normal. No aortic stenosis or regurgitat ion. 11. The mitral valve leaflets are mildly thickened. 12. Mild mitral regurgitation is present. 13. Mild tricuspid regurgitation present. 14. Right ventricular systolic pressure is normal at < 35 mmHg. 15. There is no evidence of pulmonary hypertension. 16. There is no pulmonic regurgitation present. 17. The aortic root size is normal. 18. There is no pericardial effusion. [employer] OPERATOR: Keyana Woody RDCS
== END 2019-05-26 16:40 | disposition home or self-care (01) ==
LOC: EC 04:08 → 3SCARD 05:46
PROVIDERS: ADMIT Hospitalist; ATTEND Hospitalist
DX: R07.89 Other chest pain (principal); F12.90 Cannabis use, unspecified, uncomplicated; F17.210 Nicotine dependence, cigarettes, uncomplicated; J45.901 Unspecified asthma with (acute) exacerbation; K50.90 Crohn's disease, unspecified, without complications; Z83.3 Family history of diabetes mellitus; Z79.899 Other long term (current) drug therapy; R91.8 Other nonspecific abnormal finding of lung field
CPT/HCPCS: 96361; 96374; 99285; 36415; 93005; 93306; 85379; 80053; 83690; 83735; 84484; 85025; 85610; 85730; 81003; 81025; 71046; 71275; G0378; J1885; Q9967

== ENCOUNTER 2019-11-09 14:11 | Outpatient (CLI) | payer BC ==
[2019-11-09 14:55] LABS: Mucus,Urine Few /hpf; RBC,Urine >182 /hpf (0-5); Squamous Epithelial Cell,Urine 1 /hpf (0-4); WBC,Urine 24 /hpf (0-5)
[2019-11-09 14:57] LABS: Appearance,Urine Cloudy (Clear); Color,Urine Light Red; Protein,Urine Negative (Negative); Specific Gravity,Urine 1.005 (1.001-1.035)
[2019-11-09 14:58] LABS: Bilirubin,Urine Negative (Negative); Blood,Urine Large (Negative); Glucose,Urine (UA) Negative (Negative); Ketones,Urine Negative (Negative)
[2019-11-09 14:59] LABS: Leukocyte Esterase,Urine Small (Negative); Nitrite,Urine Negative (Negative); Urobilinogen,Urine <2.0 mg/dL (<2.0)
[2019-11-09 15:26] VITALS: PULSE 100; RESP 18; TEMP 98.4
--- NOTE | 2019-12-07 12:46 | P.MSEPDOC ---
Presenting Problems - Arrival Data Date of Arrival on Unit: 11/09/19 Time of Arrival on Unit: 14:11 Mode of Transport: Ambulatory - Complaint OB-Reason for Admission/Chief Complaint: Pain, Observation/Evaluation Comment: pt presents to triage for blood in her urine, low back pain and cramping and pressure Medical History - Information : 5 Para: 4 Term: 4 : 0 Abortions: Spontaneous or Elective: 0 Number of Living Children: 4 - Gestational Age Gestational Age by LORIN (wks/days): 24 Weeks and 2 Days - History Complications: Prior Review of Systems - Review of Systems Constitutional: No problems Breast: No problems ENT: No problems Cardiovascular: No problems Respiratory: No problems Gastrointestinal: No problems Genitourinary: No problems Musculoskeletal: No problems Neurological: No problems Skin: No problems Vital Signs - Temperature Temperature: 98.4 F Temperature Source: Temporal Artery Scan - Pulse Right Brachial Pulse Rate: 100 Pulse Assessment Method: Automatic Cuff - Respirations Respiratory Rate: 18 Oxygen Delivery Method: Room Air O2 Sat by Pulse Oximetry: 98 Medical Screen Scoring (Pre) - Cervical Exam Dilation: Exam Deferred Effacement: Exam Deferred Membranes: Intact - Uterine Contractions Frequency: N/A Duration: N/A Intensity: N/A - Maternal Vital Signs Maternal Temperature: N/A Signs of Preeclampsia: N/A Maternal Respirations: N/A - Maternal Trauma Maternal Trauma: N/A - Assessment - Baby A Baseline FHR: 140 Heart Rate - NICHD Category: Category I (Normal) = 0 Position: N/A Station: N/A - Total Score - Baby A Total Score - Baby A: 0 - Total Score - Baby B Total Score - Baby B: 0 - Total Score - Baby C Total Score - Baby C: 0 - Level of Risk - Baby A Level of Risk - Baby A: Low (0-5) - Level of Risk - Baby B Level of Risk - Baby B: Low (0-5) - Level of Risk - Baby C Level of Risk - Baby C: Low (0-5) Physician Notification (Pre) - Physician Notified Physician Notified Date: 11/09/19 Physician Notified Time: 15:05 New Order Received: Yes - Notification Comment Comment: UA and culture ordered, Dr. Beatty calling in script for macrobid to [facility] in [place], discharge pt home, no need to do cervical exam, Disposition - Disposition OB Disposition: Triage, Discharge to home, Written follow up instructions reviewed Discharge Date: 11/09/19 Discharge Time: 15:20 I agree with the RN Medical Screening Exam: Yes Risk & Benefit of care provided described in d/c instruction: Yes Diagnosis: URINARY TRACT INFECTION, SITE NOT SPECIFIED
== END 2019-11-09 15:20 | disposition home or self-care (01) ==
LOC: FBPOP 14:11
PROVIDERS: ATTEND Obstetrics & Gynecology
DX: O23.42 Unspecified infection of urinary tract in pregnancy, second trimester (principal); Z3A.24 24 weeks gestation of pregnancy
CPT/HCPCS: 81001; 87086; 99213

== ENCOUNTER 2019-12-12 00:32 | Outpatient (CLI) | payer BC ==
[2019-12-12 01:12] LABS: Amorphous Sediment,Urine Occasional /hpf; Appearance,Urine Cloudy (Clear); Bacteria,Urine Rare /hpf; Bilirubin,Urine Negative (Negative); Blood,Urine Negative (Negative); Color,Urine Yellow; Glucose,Urine (UA) Negative (Negative); Ketones,Urine Negative (Negative); Leukocyte Esterase,Urine Negative (Negative); Mucus,Urine Few /hpf; Nitrite,Urine Negative (Negative); PH, Urine 6.5 (5.0-8.0); Protein,Urine Negative (Negative); Specific Gravity,Urine 1.016 (1.001-1.035); Squamous Epithelial Cell,Urine 1 /hpf (0-4); WBC,Urine 1 /hpf (0-5)
[2019-12-12 01:54] VITALS: RESP 16; TEMP 98.5
[2019-12-12 03:18] VITALS: BP 123/67; PULSE 78
--- NOTE | 2020-01-06 07:42 | P.MSEPDOC ---
Presenting Problems - Arrival Data Date of Arrival on Unit: 12/12/19 Time of Arrival on Unit: 00:32 Mode of Transport: Wheelchair - Complaint OB-Reason for Admission/Chief Complaint: Other Comment: c/o cramping after her injection for chrons last week. Medical History - Information : 5 Para: 4 Number of Living Children: 4 - Gestational Age Gestational Age by LORIN (wks/days): 29 Weeks and 0 Days - History Complications: Prior Review of Systems - Review of Systems Constitutional: No problems Breast: No problems ENT: No problems Cardiovascular: No problems Respiratory: No problems Gastrointestinal: Pain Genitourinary: No problems Musculoskeletal: No problems Neurological: No problems Skin: No problems Comment: Etienne's Vital Signs - Temperature Temperature: 98.5 F Temperature Source: Temporal Artery Scan - Pulse Right Pulse Rate: 78 Pulse Assessment Method: Automatic Cuff - Respirations Respiratory Rate: 16 Oxygen Delivery Method: Room Air O2 Sat by Pulse Oximetry: 97 - Blood Pressure Right Arm Blood Pressure: 123/67 Blood Pressure Mean: 85 Blood Pressure Source: Automatic Cuff Medical Screen Scoring (Pre) - Cervical Exam Dilation: Exam Deferred Effacement: Exam Deferred Membranes: Intact - Uterine Contractions Frequency: N/A Duration: N/A Intensity: N/A - Maternal Vital Signs Maternal Temperature: N/A Maternal Blood Pressure: N/A Signs of Preeclampsia: N/A Maternal Respirations: N/A - Maternal Trauma Maternal Trauma: N/A - Assessment - Baby A Baseline FHR: 130 Heart Rate - NICHD Category: Category I (Normal) = 0 NST: Reactive Position: N/A Station: N/A - Total Score - Baby A Total Score - Baby A: 0 - Total Score - Baby B Total Score - Baby B: 0 - Total Score - Baby C Total Score - Baby C: 0 - Level of Risk - Baby A Level of Risk - Baby A: Low (0-5) - Level of Risk - Baby B Level of Risk - Baby B: Low (0-5) - Level of Risk - Baby C Level of Risk - Baby C: Low (0-5) Physician Notification (Pre) - Physician Notified Physician Notified Date: 12/12/19 Physician Notified Time: 01:22 New Order Received: Yes - Notification Comment Comment: Obtain FFN and perform cervical exam Medical Screen Scoring (Post) - Cervical Exam Dilation: 0 cm = 0 Effacement: More than 50% = 2 Membranes: Intact - Uterine Contractions Frequency: N/A Duration: N/A Intensity: N/A - Maternal Vital Signs Maternal Temperature: N/A Maternal Blood Pressure: N/A Signs of Preeclampsia: N/A Maternal Respirations: N/A - Pain Assessment Pain Location and Character: Abdomen Pain Scale Used: Numeric (1 - 10) Pain Intensity: 5 Pain Management Goal: 5 Pain Description: *Acute, *Chronic Pain Frequency: Intermittent Pain Behavior: None Exhibited Non-Pharmacological Interventions: Darkened Room, Distraction - Maternal Trauma Maternal Trauma: N/A - Assessment - Baby A Heart Rate: 135 Heart Rate - NICHD Category: Category I (Normal) = 0 NST: Reactive Position: N/A Station: N/A - Total Score Total Score - Baby A: 2 Total Score - Baby B: 2 Total Score - Baby C: 2 - Post Treatment Level of Risk Post Treatment Level of Risk - Baby A: Low (0-5) Post Treatment Level of Risk - Baby B: Low (0-5) Post Treatment Level of Risk - Baby C: Low (0-5) Physician Notification (Post) - Physician Notified Physician Notified Date: 12/12/19 Physician Notified Time: 03:01 Physician/Practitioner Notified:: Romi Spoke With: Romi New Order Received: Yes - Notification Comment Comment: DC home Disposition - Disposition OB Disposition: Discharge to home Discharge Date: 12/12/19 Discharge Time: 03:08 I agree with the RN Medical Screening Exam: Yes Risk & Benefit of care provided described in d/c instruction: Yes Diagnosis: Crohns disease in
== END 2019-12-12 03:08 | disposition home or self-care (01) ==
LOC: FBPOP 00:32
PROVIDERS: ATTEND Obstetrics & Gynecology
DX: O99.613 Diseases of the digestive system complicating pregnancy, third trimester (principal); Z3A.29 29 weeks gestation of pregnancy
CPT/HCPCS: 59025; 81001; 82731; 99213

== ENCOUNTER 2019-12-31 05:54 | Outpatient (CLI) | payer BC ==
[2019-12-31 06:41] VITALS: BP 114/72; PULSE 98; RESP 15; TEMP 97
--- NOTE | 2020-01-20 11:27 | P.MSEPDOC ---
Presenting Problems - Arrival Data Date of Arrival on Unit: 12/31/19 Time of Arrival on Unit: 06:00 Mode of Transport: Wheelchair - Complaint OB-Reason for Admission/Chief Complaint: Other Comment: Pt arrives with complaint of ankle swelling of right foot. No other complaints presented at this time. Denies falling or any recent trauma. Pt states unsure why or how ankle became swollen. Non pitting slight edema noted. Medical History - Information : 5 Para: 4 Term: 4 : 0 Abortions: Spontaneous or Elective: 0 Number of Living Children: 4 - Gestational Age Gestational Age by LORIN (wks/days): 31 Weeks and 5 Days Review of Systems - Review of Systems Constitutional: No problems Breast: No problems ENT: No problems Cardiovascular: No problems Respiratory: No problems Gastrointestinal: Pain Genitourinary: No problems Musculoskeletal: No problems Neurological: No problems Skin: No problems Comment: pt has crohns Vital Signs - Temperature Temperature: 97.0 F Temperature Source: Temporal Artery Scan - Pulse Pulse Oximetery Pulse Rate: 98 Pulse Assessment Method: Pulse Oximetry - Respirations Respiratory Rate: 15 Oxygen Delivery Method: Room Air O2 Sat by Pulse Oximetry: 97 - Blood Pressure Right Arm Blood Pressure: 114/72 Blood Pressure Mean: 86 Blood Pressure Source: Automatic Cuff Medical Screen Scoring (Pre) - Cervical Exam Dilation: Exam Deferred Effacement: Exam Deferred Membranes: Intact - Uterine Contractions Frequency: N/A Duration: N/A Intensity: N/A - Maternal Vital Signs Maternal Temperature: N/A Maternal Blood Pressure: N/A Signs of Preeclampsia: N/A Maternal Respirations: N/A - Maternal Trauma Maternal Trauma: N/A - Assessment - Baby A Baseline FHR: 135 Heart Rate - NICHD Category: Category I (Normal) = 0 NST: Reactive Position: N/A Station: N/A - Total Score - Baby A Total Score - Baby A: 0 - Total Score - Baby B Total Score - Baby B: 0 - Total Score - Baby C Total Score - Baby C: 0 - Level of Risk - Baby A Level of Risk - Baby A: Low (0-5) - Level of Risk - Baby B Level of Risk - Baby B: Low (0-5) - Level of Risk - Baby C Level of Risk - Baby C: Low (0-5) Physician Notification (Pre) - Physician Notified Physician Notified Date: 12/31/19 Physician Notified Time: 06:08 New Order Received: Yes (Orders to receive reactive NST and D/C down to ER for XRAY of ankle.) Disposition - Disposition OB Disposition: Physician follow up in office, Transfer to other dept./facility Transferred to:: ER Discharge Date: 12/31/19 Discharge Time: 06:30 I agree with the RN Medical Screening Exam: Yes Risk & Benefit of care provided described in d/c instruction: Yes Diagnosis: RELATED CONDITIONS, UNSPECIFIED, THIRD TRIMESTER
== END 2019-12-31 06:30 | disposition home or self-care (01) ==
LOC: FBPOP 05:54
PROVIDERS: ATTEND Obstetrics & Gynecology
DX: O26.93 Pregnancy related conditions, unspecified, third trimester (principal); Z3A.31 31 weeks gestation of pregnancy
CPT/HCPCS: 59025; 99213

== ENCOUNTER 2020-01-04 13:44 | Outpatient (CLI) | payer BC ==
[2020-01-04] MEDS ORDERED: LACTATED RINGERS 1,000 ML IV ONE (14:00)
[2020-01-04 14:11] LABS: RBC,Urine >182 /hpf (0-5); WBC,Urine 17 /hpf (0-5)
[2020-01-04] MEDS ORDERED: ACETAMINOPHEN IV (For NPO) 1,000 MG in EMPTY BAG 1 BAG IVPB ONE (14:15)
[2020-01-04 14:20] LABS: Basophils % (A) 0 %; Eosinophils # (A) 0.1 k/uL (0-0.7); Eosinophils % (A) 1 %; HCT 37.6 % (34.0-46.0); HGB 12.5 gm/dL (11.4-16.0); Lymphocytes % (A) 17 %; MCH 32.8 pg (25.0-35.0); MCHC 33.3 g/dL (31.0-37.0); MCV 98.6 fL (80.0-100.0); Mean Platelet Volume 9.3; Monocytes # (A) 0.5 k/uL (0-1.0); Monocytes % (A) 4 %; Neutrophils # (A) 8.9 k/uL (1.3-7.7); Neutrophils % (A) 77 %; Platelet Count 218 k/uL (150-450); RBC 3.81 m/uL (3.80-5.40); RDW 13.1 % (11.5-15.5); WBC 11.7 k/uL (3.8-10.6)
[2020-01-04 14:31] LABS: African American GFR (CKD) >90 (>60 ml/min/1.73 sqM); Anion Gap 7 mmol/L; Blood Urea Nitrogen 2 mg/dL (7-17); Calcium 8.9 mg/dL (8.4-10.2); Carbon Dioxide 21 mmol/L (22-30); Chloride 107 mmol/L (98-107); Glucose 122 mg/dL (74-99); Non-African American GFR(CKD) >90 (>60 ml/min/1.73 sqM); Sodium 135 mmol/L (137-145)
[2020-01-04 14:42] VITALS: BP 125/85; PULSE 95; RESP 17; TEMP 97.3
[2020-01-04 14:45] LABS: Appearance,Urine Cloudy (Clear); Color,Urine Brown; Specific Gravity,Urine 1.015 (1.001-1.035)
[2020-01-04 14:46] LABS: Glucose,Urine (UA) Negative (Negative); Ketones,Urine Negative (Negative); Protein,Urine 3+ (Negative)
[2020-01-04 14:51] LABS: Bilirubin,Urine Negative (Negative)
[2020-01-04 14:52] LABS: Leukocyte Esterase,Urine Negative (Negative); Nitrite,Urine Negative (Negative)
[2020-01-04 14:54] LABS: Blood,Urine Large (Negative)
--- NOTE | 2020-01-16 09:18 | P.MSEPDOC ---
Presenting Problems - Arrival Data Date of Arrival on Unit: 01/04/20 Time of Arrival on Unit: 13:45 Mode of Transport: Ambulatory - Complaint OB-Reason for Admission/Chief Complaint: Other Comment: pt to triage after speaking with orthodontic treatment coordinator pt reports blood in urine. pt has. history of kidney infections. urine obtained, urine merlot color. pt states back pain. stated yesterday, blood in urine started this morning. rn jameson at bedside doing hands. on care. right flank pain noted with palpation by rn Medical History - Information : 5 Para: 4 Term: 4 : 0 Abortions: Spontaneous or Elective: 0 Number of Living Children: 4 - Gestational Age Gestational Age by LORIN (wks/days): 32 Weeks and 2 Days Review of Systems - Review of Systems Constitutional: No problems Breast: No problems ENT: No problems Cardiovascular: No problems Respiratory: No problems Gastrointestinal: No problems Genitourinary: No problems Musculoskeletal: No problems Neurological: No problems Skin: No problems Vital Signs - Temperature Temperature: 97.3 F Temperature Source: Temporal Artery Scan - Pulse Right Brachial Pulse Rate: 95 Pulse Assessment Method: Automatic Cuff - Respirations Respiratory Rate: 17 Oxygen Delivery Method: Room Air O2 Sat by Pulse Oximetry: 98 - Blood Pressure Right Arm Blood Pressure: 125/85 Blood Pressure Mean: 98 Blood Pressure Source: Automatic Cuff Medical Screen Scoring (Pre) - Cervical Exam Dilation: Exam Deferred Effacement: Exam Deferred Membranes: Intact - Uterine Contractions Frequency: N/A Duration: N/A Intensity: N/A - Maternal Vital Signs Maternal Temperature: N/A Maternal Blood Pressure: N/A Signs of Preeclampsia: N/A Maternal Respirations: N/A - Maternal Trauma Maternal Trauma: N/A - Total Score - Baby A Total Score - Baby A: 0 - Total Score - Baby B Total Score - Baby B: 0 - Total Score - Baby C Total Score - Baby C: 0 - Level of Risk - Baby A Level of Risk - Baby A: Low (0-5) - Level of Risk - Baby B Level of Risk - Baby B: Low (0-5) - Level of Risk - Baby C Level of Risk - Baby C: Low (0-5) Physician Notification (Pre) - Physician Notified Physician Notified Date: 01/04/20 Physician Notified Time: 14:00 New Order Received: Yes Medical Screen Scoring (Post) - Cervical Exam Dilation: Exam Deferred Effacement: Exam Deferred Membranes: Intact - Uterine Contractions Frequency: N/A Duration: N/A Intensity: N/A - Maternal Vital Signs Maternal Temperature: N/A Maternal Blood Pressure: N/A Signs of Preeclampsia: N/A Maternal Respirations: N/A - Maternal Trauma Maternal Trauma: N/A - Assessment - Baby A Heart Rate: 125 Heart Rate - NICHD Category: Category I (Normal) = 0 NST: Reactive Position: N/A Station: N/A - Total Score Total Score - Baby A: 0 Total Score - Baby B: 0 Total Score - Baby C: 0 - Post Treatment Level of Risk Post Treatment Level of Risk - Baby A: Low (0-5) Post Treatment Level of Risk - Baby B: N/A Post Treatment Level of Risk - Baby C: N/A Physician Notification (Post) - Physician Notified Physician Notified Date: 01/04/20 Physician Notified Time: 14:55 Physician/Practitioner Notified:: Dr Morgan Spoke With: Dr Morgan New Order Received: Yes (dc home) Disposition - Disposition OB Disposition: Discharge to home, Written follow up instructions reviewed Discharge Date: 01/04/20 Discharge Time: 15:55 I agree with the RN Medical Screening Exam: Yes Risk & Benefit of care provided described in d/c instruction: Yes Diagnosis: URINARY TRACT INFECTION, SITE NOT SPECIFIED
== END 2020-01-04 15:55 | disposition home or self-care (01) ==
LOC: FBPOP 13:44
PROVIDERS: ATTEND Obstetrics & Gynecology Obstetrics
DX: O23.43 Unspecified infection of urinary tract in pregnancy, third trimester (principal); Z3A.32 32 weeks gestation of pregnancy
CPT/HCPCS: 59025; 99214; 96361; 96365; 96367; 80048; 85025; 81001; 87086; J0690; J0131

== ENCOUNTER 2020-02-15 10:29 | Inpatient (IN) | payer BC ==
[2020-02-15 11:38] LABS: Appearance,Urine Clear (Clear); Bacteria,Urine Rare /hpf; Bilirubin,Urine Negative (Negative); Blood,Urine Small (Negative); Color,Urine Light Yellow; Glucose,Urine (UA) Negative (Negative); Ketones,Urine Negative (Negative); Leukocyte Esterase,Urine Negative (Negative); Nitrite,Urine Negative (Negative); PH, Urine 6.5 (5.0-8.0); Protein,Urine Negative (Negative); RBC,Urine <1 /hpf (0-5); Specific Gravity,Urine 1.002 (1.001-1.035); Squamous Epithelial Cell,Urine <1 /hpf (0-4); Urobilinogen,Urine <2.0 mg/dL (<2.0); WBC,Urine <1 /hpf (0-5)
[2020-02-15] MEDS ORDERED: ACETAMINOPHEN TAB 325 MG TAB PO STA (11:52)
[2020-02-15] MEDS ORDERED: LACTATED RINGERS 1,000 ML IV ONE (12:00)
[2020-02-15] MEDS: LACTATED RINGERS 1,000 ML IV SCH ×2 (13:31→20:26)
[2020-02-15 13:47] LABS: Basophils % (A) 0 %; Eosinophils # (A) 0.1 k/uL (0-0.7); Eosinophils % (A) 0 %; HCT 38.3 % (34.0-46.0); HGB 13.3 gm/dL (11.4-16.0); Lymphocytes # (A) 2.1 k/uL (1.0-4.8); Lymphocytes % (A) 13 %; MCHC 34.7 g/dL (31.0-37.0); Mean Platelet Volume 9.5; Monocytes # (A) 0.7 k/uL (0-1.0); Monocytes % (A) 4 %; Neutrophils # (A) 13.6 k/uL (1.3-7.7); Neutrophils % (A) 82 %; Platelet Count 183 k/uL (150-450); RBC 3.91 m/uL (3.80-5.40); RDW 13.4 % (11.5-15.5); WBC 16.6 k/uL (3.8-10.6)
[2020-02-15] MEDS ORDERED: CITRIC ACID-SODIUM CITRATE 15 ML CUP PO ONE (16:31)
--- NOTE | 2020-02-15 16:42 | P.HPOB ---
History of Present Illness H&P Date: 02/15/20 Chief Complaint: Right-sided back pain and irregular contractions This is a 34 year old 5 para 4004 woman who has an estimated due date of 02/27/2020 based on LMP consistent with early ultrasound. She presents at 38- 2/7 weeks gestation complaining of right-sided back pain consistent with history of previous kidney stones. She also is having some irregular contractions. Her obstetric history is complicated for 4 previous low transverse sections as well as Crohn's disease and history of kidney stones at 33 weeks. Currently she denies dysuria, hematuria, fevers or chills. She is having irregular painful lower uterine cramping. She has good movement, no leakage of fluids or vaginal bleeding. She was initially admitted for observation and f luid rehydration however she developed a more regular contraction pattern and discomfort therefore she is admitted on suture and proceed to delivery. Obstetric history is significant for low transverse section in 2003, 2007, 2009 and 2013. The time of her 2014 the low uterine segment was noted to be extremely thin and she was recommended not to pursue future pregnancies. Laboratory data: Blood type A positive, antibody screen negative, rubella immune, B-year-old nonreactive, hepatitis B surface antigen negative, HIV negative, gonorrhea and clinic cultures negative, glucose tolerance testing within normal limits, group B strep negative. Review of Systems All systems: negative Past Medical History Additional Past Medical History / Comment(s): Crohn's, bowel obstructions, hypoglycemia History of Any Multi-Drug Resistant Organisms: None Reported Past Surgical History: Adenoidectomy, Section (4) Additional Past Surgical History / Comment(s): Colonoscopy Past Anesthesia/Blood Transfusion Reactions: No Reported Reaction Past Psychological History: No Psychological Hx Reported Smoking Status: Current every day smoker Past Alcohol Use History: None Reported Additional Past Alcohol Use History / Comment(s): Pt started smoking in 2001 and about a 1/2 ppd. Past Drug Use History: None Reported - Past Family History Mother Family Medical History: Diabetes Mellitus Additional Family Medical History / Comment(s): Mother is healthy Father History Unknown: Yes Additional Family Medical History / Comment(s): Pt does not know her father. Medications and Allergies Home Medications Medication Instructions Recorded Confirmed Type Albuterol Sulfate [Proair Hfa] 2 puff INHALATION RT-Q6H PRN 05/26/19 02/15/20 History Fluticasone/Salmeterol [Advair 1 inhalation PO BID #1 inhaler 05/26/19 02/15/20 Rx 250-50 Diskus] Pnv No.95/Ferrous Fum/Folic AC 1 each PO DAILY 11/09/19 02/15/20 History [ Multivitamin Tablet] Infliximab-Dyyb [Inflectra] 100 mg IV DIRECTED 12/12/19 02/15/20 History Allergies Allergy/AdvReac Type Severity Reaction Status Date / Time No Known Allergies Allergy Verified 02/06/20 15:19 Exam Vital Signs Temp Pulse Resp BP Pulse Ox 02/15/20 13:30 97.3 F L 73 18 146/86 02/15/20 10:47 128/71 02/15/20 10:32 97.5 F L 87 18 153/97 98 Intake and Output 02/15/20 02/15/20 02/15/20 06:59 14:59 22:59 Other: # Voids 1 Weight 73.028 kg This is a pleasant, visibly gravid female who is in no acute distress. HEENT exam unremarkable. The breathing is unlabored and the heart is a regular rate and rhythm. The abdomen is gravid soft and nontender with intermittent contractions. She has right-sided CVA tenderness. Pelvic examination per RN is closed cervix with high presenting part. It did not repeat pelvic examination. heart tones are category 1 and she is evelyn irregularly every 2-8 minutes. Results Result Diagrams: 02/15/20 13:18 Abnormal Lab Results - Last 24 Hours (Table) 02/15/20 02/15/20 Range/Units 10:49 13:18 WBC 16.6 H (3.8-10.6) k/uL Neutrophils # 13.6 H (1.3-7.7) k/uL Urine Blood Small H (Negative) Urine Bacteria Rare H (None) /hpf Assessment and Plan (1) History of Current Visit: Yes Status: Acute Code(s): Z98.891 - HISTORY OF UTERINE SCAR FROM PREVIOUS SURGERY SNOMED Code(s): 823947469 (2) Asthma Current Visit: Yes Status: Acute Code(s): J45.909 - UNSPECIFIED ASTHMA, UNCO MPLICATED SNOMED Code(s): 306449052 (3) Spontaneous onset of labor Current Visit: Yes Status: Acute Code(s): YZP2068 - SNOMED Code(s): 82282973 (4) Family planning Current Visit: Yes Status: Acute Code(s): Z30.09 - ENCOUNTER FOR OT GENERAL CNSL AND ADVICE ON CONTRACEPTION SNOMED Code(s): 532180731 Plan: This is a 34-year-old 5 para 4004 woman who is admitted at 38-2/7 weeks' gestation for repeat low transverse section and bilateral tubal ligation in labor. She may also have on possible right-sided kidney stone. Her history is significant for a thin the low uterine segment with her previous section. I counseled her that this may make the risk of bladder in jury, bleeding or, located repair higher during this procedure. Risks in general were reviewed including bleeding, transfusion, infection, damage to bowel, bladder, ureters and/or other pelvic structures, injury to the , DVT, PE and or anesthetic, occasions. The patient understands these risks and agrees to proceed. She is also been counseled regarding tubal ligation and declined other options for contraception. Consent has been signed for bilateral tubal ligation which we will perform at the time of her . status is currently reassuring by external monitoring. The anesthesiology team has been notified regarding the plan
[2020-02-15] MEDS ORDERED: ONDANSETRON 4 MG/2 ML VIAL ONE (17:17)
[2020-02-15] MEDS ORDERED: NALBUPHINE 10 MG/ML (1 ML AMP) ONE (17:17)
[2020-02-15] MEDS ORDERED: MORPHINE SULFATE (PF) 0.3 MG/0.3 ML SYR ONE (17:17)
[2020-02-15] MEDS ORDERED: OXYTOCIN 10 UNIT/ML 1 ML VIAL ONE (17:17)
[2020-02-15] MEDS ORDERED: fentaNYL (PF) 50 MCG/ML 2 ML AMP ONE (17:17)
[2020-02-15] MEDS ORDERED: KETOROLAC 15 MG/ML 1 ML VIAL ONE (17:17)
[2020-02-15] MEDS ORDERED: diphenhydrAMINE 25 MG CAP PO PRN (18:07)
[2020-02-15] MEDS ORDERED: ZOLPIDEM 5 MG TAB PO PRN (18:07)
[2020-02-15] MEDS ORDERED: NALOXONE 0.4 MG/ML 1 ML VIAL IV PRN (18:07)
[2020-02-15] MEDS ORDERED: ONDANSETRON 4 MG/2 ML VIAL IVP PRN (18:07)
[2020-02-15] MEDS ORDERED: METOCLOPRAMIDE 5 MG/ML 2 ML VIAL IVP PRN (18:07)
[2020-02-15] MEDS ORDERED: diphenhydrAMINE 50 MG CAP PO PRN (18:07)
[2020-02-15] MEDS ORDERED: diphenhydrAMINE 50 MG/ML 1 ML VIAL IVP PRN ×2 (18:07)
--- NOTE | 2020-02-15 18:07 | P.OP ---
Date of Procedure: 02/15/20 Preoperative Diagnosis: Intrauterine at 30-2/7 weeks' gestation, spontaneous labor History of 4 previous sections Desires permanent sterility Postoperative Diagnosis: Same Thin low uterine segment Procedure(s) Performed: Repeat low-transverse section with bilateral tubal ligation with Filshie clips Anesthesia: spinal Surgeon: Rose Llanos Hand Collator #1: Aramis Valdez Estimated Blood Loss (ml): 400 IV fluids (ml): 1,200 Urine output (ml): 100 Pathology: none sent Condition: stable Disposition: floor Indications for Procedure: 34-year-old 5 para 4 who presented at 38-2/7 weeks' gestation with back pain and possible kidney stone and was found to be actively evelyn. She has a history of 4 previous low transverse sections and repeat was planned. She also signed consent for bilateral tubal ligation. Operative Findings: Male infant in the vertex presentation with nuchal cord 1 weighing 7 lbs. 15 oz. Apgars 8 at 1 minute and 9 at 5 minutes. Extremely thin lower uterine segment. Normal-appearing bilateral fallopian tubes and ovaries. Intact, three-vessel cord placenta. Description of Procedure: After the patient was met preoperatively and all questions were answered, she was taken to the operating room where spinal anesthetic was administered without incident. She was then positioned, prepped and draped in the dorsal supine position with a leftward tilt. Garduno catheter was placed. After anesthetic was confirmed adequate, a low transverse skin incision was made following the pre- existing scar. This was carried down to the underlying fascia both sharply and with the electrocautery. The fascia was then incised in the midline and extended bilaterally with the Garrison scissors. The superior aspect of the fascial incision was elevated and the underlying rectus muscles dissected off sharply and with the electrocautery. The inferior aspect of the fascial incision was also elevated and the underlying rectus muscles dissected off sharply. The muscles were adherent in the midline. These were bluntly and the peritoneum was tented up with hemostats. The peritoneum was entered sharply with the Metzenbaum scissors. The peritoneal incision was extended inferiorly and superiorly with good visualization of the bladder. The bladder blade was placed. The lower uterine segment was noted to be extremely thin. The vesicouterine peritoneum was identified, tented up and entered sharply, the bladder flap was created both sharply. A low transverse uterine incision was then made sharply and carried down to the underlying amniotic membranes. Membranes were ruptured and clear fluid was noted. The uterine incision was extended bilaterally bluntly. The infant's head was delivered from the incision without difficulty. The nose and mouth were bulb suctioned. The rest of the was delivered onto the field without difficulty. And cut and the was taken to the warmer. An intact, three-vessel cord placenta was then manually removed and the uterus was exteriorized. The uterus was cleared of all clot and debris. The uterine incision was delineated with Sawyer clamps. The uterine incision was then closed in a running locked fashion with 0 Vicryl suture. Additional cioxfe-sv-pogiv sutures were carefully placed where necessary along the incision for hemostasis. The right and left fallopian tubes were positively identified and carried out to the fimbriated ends. Filshie clip clips were then applied in the mid ampullary portion of the tubes completely transecting each tube. The uterus was then returned to the abdomen and the gutters were cleared of all clot and debris. The uterine incision was reinspected and Bovie electrocautery was utilized were necessary for hemostasis. The fascial edges, peritoneal edges and rectus muscles were inspected and Bovie electrocautery utilized were necessary for hemostasis. The fascia was then closed in a running fashion with 0 Vicryl suture. The subcuticular tissue was copiously suction irrigated and Bovie electrocautery utilized were necessary for hemostasis. 3-0 Vicryl suture was utilized to reapproximate the subcuticular tissue. The skin was then closed using jam.. All counts reported to me as correct by the operating room staff at the end of the procedure. The patient received antibiotics preoperatively and Pitocin following cord clamp. Mother and were both transported from the room in stable condition.
[2020-02-15] MEDS ORDERED: OXYTOCIN 20 UNITS/1000 ML NS 1,000 ML IV SCH (18:15)
[2020-02-15] MEDS ORDERED: LACTATED RINGERS 1,000 ML IV SCH (18:15)
[2020-02-15] MEDS ORDERED: ACETAMINOPHEN IV (For NPO) 1,000 MG in EMPTY BAG 1 BAG IVPB ONE (18:30)
[2020-02-15] MEDS: SENNOSIDES-DOCUSATE SODIUM 1 EACH TAB PO SCH (20:16)
[2020-02-15] MEDS: KETOROLAC 15 MG/ML 1 ML VIAL IVP PRN (23:38)
[2020-02-16] MEDS: HYDROcodone/APAP 5-325MG 1 EACH TAB PO PRN ×4 (02:30→20:49)
[2020-02-16] MEDS: ALBUTEROL NEBULIZED 2.5 MG/3 ML INHALATION PRN ×2 (03:24→21:31)
[2020-02-16] MEDS: KETOROLAC 15 MG/ML 1 ML VIAL IVP PRN ×2 (06:04→12:45)
--- NOTE | 2020-02-16 06:34 | P.PN ---
Progress Note - Text Progress Note Date: 02/16/20 Patient seen and examined. S/P last night with intra-thecal narcotic (Morphine 0.3 mg) with good results overnight. Discussed with nursing, who will contact OB for alternative pain medications prn. Will re-eval prn.
[2020-02-16] MEDS: LACTATED RINGERS 1,000 ML IV SCH ×2 (06:47→23:30)
--- NOTE | 2020-02-16 07:46 | P.PN ---
Subjective Progress Note Date: 02/16/20 Principal diagnosis: Postoperative day #1 Positive flatus. Pain well controlled. No complaints. Objective - Vital Signs Vital signs: Vital Signs Temp 98.4 F 02/16/20 04:00 Pulse 76 02/16/20 04:00 Resp 16 02/16/20 04:00 BP 120/81 02/16/20 04:00 Pulse Ox 97 02/15/20 19:45 Intake & Output 02/15/20 02/16/20 02/16/20 18:59 06:59 18:59 Output Total 816 400 Balance -816 -400 Weight 73.028 kg Output: Urine 400 Straight 400 Estimated Blood Loss 816 Other: # Voids 1 - Constitutional General appearance: Present: average body habitus, cooperative - EENT Eyes: Present: PERRLA - Respiratory Respiratory: bilateral: CTA - Cardiovascular Rhythm: regular - Gastrointestinal Gastrointestinal Comment(s): Incision clean and dry, intact, Steri-Strips applied. Fundus firm, midline, symmetric, 18 week size. General gastrointestinal: Present: normal bowel sounds - Integumentary Integumentary: Present: normal - Neurologic Neurologic: Present: CNII-XII intact - Musculoskeletal Musculoskeletal: Present: gait normal, strength equal bilaterally - Psychiatric Psychiatric: Present: A&O x's 3, appropriate affect, intact judgment & insight - Labs CBC & Chem 7: 02/15/20 13:18 Labs: Abnormal Lab Results - Last 24 Hours (Table) 02/15/20 02/15/20 Range/Units 10:49 13:18 WBC 16.6 H (3.8-10.6) k/uL Neutrophils # 13.6 H (1.3-7.7) k/uL Urine Blood Small H (Negative) Urine Bacteria Rare H (None) /hpf Assessment and Plan Assessment: Doing well post operative day #1 Plan: Continue postoperative care. Circumcision to be performed this morning. Anticipate discharge home tomorrow. Time with Patient: Less than 30
[2020-02-16] MEDS: SENNOSIDES-DOCUSATE SODIUM 1 EACH TAB PO SCH ×2 (08:13→20:49)
[2020-02-16 09:06] LABS: Basophils % (A) 0 %; Eosinophils % (A) 0 %; HCT 25.2 % (34.0-46.0); Lymphocytes # (A) 1.9 k/uL (1.0-4.8); Lymphocytes % (A) 15 %; MCH 32.8 pg (25.0-35.0); MCHC 33.2 g/dL (31.0-37.0); MCV 98.8 fL (80.0-100.0); Mean Platelet Volume 9.3; Monocytes # (A) 0.3 k/uL (0-1.0); Monocytes % (A) 2 %; Neutrophils # (A) 10.7 k/uL (1.3-7.7); Neutrophils % (A) 82 %; Platelet Count 177 k/uL (150-450); RBC 2.55 m/uL (3.80-5.40)
[2020-02-16 09:15] LABS: HGB 8.4 gm/dL (11.4-16.0)
[2020-02-16] MEDS: IBUPROFEN 600 MG TAB PO PRN ×2 (12:54→18:19)
[2020-02-17] MEDS: IBUPROFEN 600 MG TAB PO PRN ×2 (00:39→08:06)
[2020-02-17] MEDS: HYDROcodone/APAP 5-325MG 1 EACH TAB PO PRN ×3 (01:50→10:01)
[2020-02-17] MEDS: SIMETHICONE 80 MG CHEWABLE PO PRN ×2 (03:32→08:06)
[2020-02-17] MEDS: SENNOSIDES-DOCUSATE SODIUM 1 EACH TAB PO SCH (08:06)
[2020-02-17 08:54] VITALS: BP 134/79; PULSE 90; RESP 18; TEMP 98.2
--- NOTE | 2020-02-17 11:15 | P.DS ---
Providers Date of admission: 02/15/20 16:31 Expected date of discharge: 02/17/20 Attending physician: Karen Hannah Primary care physician: Stated None Hospital Course: This is a 34-year-old female 5 para 4004 EDC 03/08/2020 at 38-2/7 weeks' gestation. Patient presented in active labor. She has had previous sections with a very low uterine segment noted. Plan was for section and tubal ligation. Group B strep cultures negative, rubella status immune, blood type A+. Please see dictated history and physical for details. Patient underwent a repeat low transverse section and gave to a liveborn male infant with scores of 8 and 9 at one and 5 minutes respectively. He weighed 7 lbs. 15 oz. or 3600 g. Tubal ligation was performed as per patient's request. Please see dictated operative note for details. This morning the patient is doing well. Circumcision has been performed on her son. The patient is voiding, ambulating, passing flatus without difficulty. Vital signs are stable and she is afebrile. Postoperative hemoglobin was somewhat low, however pulse has remained in the 70s and patient denies lightheadedness or dizziness. She will begin ferrous sulfate 325 mg twice a day. She will continue taking her vitamin daily. Incision is clean and dry and intact. Steri-Strips applied. Extremities are negative for edema. Chest is clear in all sidhu. Uterus is firm and midline symmetric and 18 week size. She is being discharged home today in good condition. She will follow-up with me in the office in 2 weeks for incision check. I have reminded her no intercourse, tampons or douching. She will use koht-dil-cyesutd Advil or Aleve, or Motrin as needed for pain. She will call with any fevers shakes or chills, foul smelling or copious lochia, with the passage of large blood clots, with any pain not alleviated by fmgn-zpy-[id number] products, or indeed with any concerns. Assessment: Doing well postoperative day #3. Postoperative anemia. Patient Condition at Discharge: Good Plan - Discharge Summary Discharge Rx Participant: No New Discharge Prescriptions: No Action Albuterol Sulfate [Proair Hfa] 2 puff INHALATION RT-Q6H PRN PRN Reason: Bronchospasm Fluticasone/Salmeterol [Advair 250-50 Diskus] 1 inhalation PO BID #1 inhaler Pnv No.95/Ferrous Fum/Folic AC [ Multivitamin Tablet] 1 each PO DAILY Infliximab-Dyyb [Inflectra] 100 mg IV DIRECTED Discharge Medication List Albuterol Sulfate [Proair Hfa] 2 puff INHALATION RT-Q6H PRN 05/26/19 [History] Fluticasone/Salmeterol [Advair 250-50 Diskus] 1 inhalation PO BID #1 inhaler 05/26/19 [Rx] Pnv No.95/Ferrous Fum/Folic AC [ Multivitamin Tablet] 1 each PO DAILY 11/09/19 [History] Infliximab-Dyyb [Inflectra] 100 mg IV DIRECTED 12/12/19 [History] Follow up Appointment(s)/Referral(s): Karen Hannah MD [STAFF PHYSICIAN] - 2 Weeks Discharge Disposition: HOME SELF-CARE
== END 2020-02-17 12:58 | disposition home or self-care (01) | DRG 784 ==
LOC: FBPOP 10:29 → 4FBP 13:27 → OBSVTOIN 16:31
PROVIDERS: ADMIT Obstetrics & Gynecology; ATTEND Obstetrics & Gynecology
PROC: 10D00Z1 Extraction of Products of Conception, Low, Open Approach (ICD-10-PCS; principal; 2020-02-15 17:25)
PROC: 0UL70CZ Occlusion of Bilateral Fallopian Tubes with Extraluminal Device, Open Approach (ICD-10-PCS; principal; 2020-02-15 17:25)
DX: O34.211 Maternal care for low transverse scar from previous cesarean delivery (principal); K50.90 Crohn's disease, unspecified, without complications; O69.81X0 Labor and delivery complicated by cord around neck, without compression, not applicable or unspecified; O99.02 Anemia complicating childbirth; D64.9 Anemia, unspecified; O99.334 Smoking (tobacco) complicating childbirth; F17.210 Nicotine dependence, cigarettes, uncomplicated; O99.52 Diseases of the respiratory system complicating childbirth; O99.89 Other specified diseases and conditions complicating pregnancy, childbirth and the puerperium; N20.0 Calculus of kidney; J45.909 Unspecified asthma, uncomplicated; O99.62 Diseases of the digestive system complicating childbirth; Z37.0 Single live birth; Z3A.38 38 weeks gestation of pregnancy; Z30.2 Encounter for sterilization; Z87.442 Personal history of urinary calculi; Z90.89 Acquired absence of other organs; Z79.51 Long term (current) use of inhaled steroids; Z83.3 Family history of diabetes mellitus
CPT/HCPCS: 59025; 81001; 85025; 86850; 86900; 86901; 94640; 96361; 99213; 99214

== ENCOUNTER → 2020-10-01 | Outpatient (CLI) | payer BC ==
[2020-10-01 12:44] LABS: Creatine Kinase MB 1.1 ng/mL (0.0-2.4); Troponin I <0.012 ng/mL (0.000-0.034)
== END | disposition home or self-care (01) ==
LOC: LABWHC1 11:16
PROVIDERS: ATTEND Physician Assistant
DX: R07.89 Other chest pain (principal)
CPT/HCPCS: 36415; 82550; 82553; 84484

== ENCOUNTER 2021-06-04 08:48 | Emergency (ER) | payer BC ==
[2021-06-04 09:01] VITALS: BP 116/80; PULSE 89; RESP 20; TEMP 98
[2021-06-04] MEDS ORDERED: HYDROcodone/APAP 5-325MG 1 EACH TAB PO STA (09:31)
[2021-06-04] MEDS ORDERED: IBUPROFEN 600 MG TAB PO STA (09:32)
--- NOTE | 2021-06-04 09:34 | ED ---
Lower Extremity Injury HPI - General Chief Complaint: Extremity Injury, Lower Stated Complaint: fall, lt ankle injury Time Seen by Provider: 06/04/21 09:13 Source: patient, family, RN notes reviewed Mode of arrival: ambulatory - History of Present Illness Initial Comments: Pleasant 35-year-old female who slipped on ice and injured her left ankle. Complaining of pain to the lateral aspect pain which radiates into the lower leg. Pain is exacerbated by palpation, attempted ambulation, movement. She denies any distal paresthesias. No other injuries.No headache, no fever or chills, no changes in vision or hearing, no sore throat or difficulty with speech, no neck pain, no chest pain or shortness of breath, no abdominal pain, no nausea or vomiting, no changes in urination or bowel movements, no numbness or tingling, no extremity pain, no skin rashes or lesions. - Related Data Home Medications Medication Instructions Recorded Confirmed Albuterol Sulfate [Proair Hfa] 2 puff INHALATION RT-Q6H PRN 05/26/19 02/15/20 Pnv No.95/Ferrous Fum/Folic AC 1 each PO DAILY 11/09/19 02/15/20 [ Multivitamin Tablet] Infliximab-Dyyb [Inflectra] 100 mg IV DIRECTED 12/12/19 02/15/20 Previous Rx's Medication Instructions Recorded Fluticasone/Salmeterol [Advair 1 inhalation PO BID #1 inhaler 05/26/19 250-50 Diskus] HYDROcodone/APAP 5-325MG [Adrian 1 each PO Q6H PRN #12 tab 06/04/21 5-325] Allergies Allergy/AdvReac Type Severity Reaction Status Date / Time No Known Allergies Allergy Verified 06/04/21 09:01 Review of Systems ROS Statement: Those systems with pertinent positive or pertinent negative responses have been documented in the HPI. ROS Other: All systems not noted in ROS Statement are negative. Past Medical History Past Medical History: No Reported History Additional Past Medical History / Comment(s): Crohn's, bowel obstructions, hypoglycemia History of Any Multi-Drug Resistant Organisms: None Reported Past Surgical History: Adenoidectomy, Section Additional Past Surgical History / Comment(s): Colonoscopy Past Anesthesia/Blood Transfusion Reactions: No Reported Reaction Past Psychological History: No Psychological Hx Reported Smoking Status: Current every day smoker Past Alcohol Use History: None Reported Past Drug Use History: None Reported - Past Family History Mother Family Medical History: Diabetes Mellitus Additional Family Medical History / Comment(s): Mother is healthy Father History Unknown: Yes Additional Family Medical History / Comment(s): Pt does not know her father. General Exam - General Exam Comments Initial Comments: Nontoxic appearing female in mild distress secondary to left ankle injury General appearance: alert, in no apparent distress Head exam: Present: atraumatic, normocephalic, normal inspection Eye exam: Present: normal appearance, EOMI ENT exam: Present: normal exam Neck exam: Present: normal inspection. Absent: tenderness, meningismus, lymphadenopathy Respiratory exam: Present: normal lung sounds bilaterally. Absent: respiratory distress, wheezes, rales, rhonchi, stridor Cardiovascular Exam: Present: regular rate, normal rhythm, normal heart sounds. Absent: systolic murmur, diastolic murmur, rubs, gallop, clicks GI/Abdominal exam: Present: soft. Absent: distended, tenderness Extremities exam: Present: tenderness, normal capillary refill. Absent: pedal edema, joint swelling Left Lower Leg exam: Present: normal inspection, tenderness. Absent: abrasion Ankle exam: Present: normal inspection, tenderness, swelling. Absent: full ROM, abrasion, laceration, deformity, crepitus, dislocation Foot/Toe exam: Present: normal inspection, full ROM. Absent: tenderness, swelling, abrasion, laceration Neurovascular tendon exam: Present: no vascular compromise. Absent: pulse deficit, abnormal cap refill, motor deficit, sensory deficit, tendon deficit, extremity cold to touch (Patient has tenderness to lateral aspect the left ankle. 2 lesser extent some tenderness to the mid fibular area. No break in skin integrity. No erythema.) Course Vital Signs 06/04/21 08:58 Temperature 98 F Pulse Rate 89 Respiratory 20 Rate Blood Pressure 116/80 O2 Sat by Pulse 100 Oximetry Medical Decision Making - Medical Decision Making Patient does not appear to be ill or toxic. Presents with isolated left ankle injury. Plain film x-rays ordered. - Radiology Data Radiology results: report reviewed, image reviewed Disposition Clinical Impression: Closed fracture of distal end of left fibula Disposition: HOME SELF-CARE Condition: Stable Instructions (If sedation given, give patient instructions): Ankle Fracture (ED), Splint Care (ED), Crutch Instructions (ED) Additional Instructions: Make a follow-up with the on-call orthopedic physician as directed. Elevate your leg whenever possible. Use the crutches as directed to clearance by orthopedics. Return to the ER for any symptoms worsen or problems arise. Prescriptions: HYDROcodone/APAP 5-325MG [Adrian 5-325] 1 each PO Q6H PRN #12 tab PRN Reason: Pain Is patient prescribed a controlled substance at d/c from ED?: Yes Referrals: Joshua Villareal MD [STAFF PHYSICIAN] - 06/07/21 Time of Disposition: 10:37
--- NOTE | 2021-06-04 09:47 | XR ---
Left ankle. HISTORY: Pain following trauma. COMPARISON: None. TECHNIQUE: 3 views left ankle were obtained. FINDINGS: There are oblique spiral fracture of the distal left fibula at the level of the tibial plafond. There is moderate soft tissue swelling over the lateral malleolus. The ankle mortise is intact. The remaining osseous structures are intact. There is no abnormal soft tissue calcification. IMPRESSION: Fracture of the lateral malleolus with soft tissue swelling. The ankle mortise is intact.
--- NOTE | 2021-06-04 09:49 | XR ---
Left tibia and fibula. HISTORY: Pain findings on COMPARISON: None TECHNIQUE: 3 views left tibia and fibula were obtained. There is an oblique fracture of the distal left fibula at the level of the ankle mortise. The mortise is intact. The proximal fibula is intact. There is no tibial fracture. There is no radiopaque foreign body or abnormal soft tissue calcification. IMPRESSION: Oblique minimally displaced fracture distal left fibula as described above.
== END 2021-06-04 10:50 | disposition home or self-care (01) ==
LOC: EC 08:48
DX: S82.832A Other fracture of upper and lower end of left fibula, initial encounter for closed fracture (principal); F17.200 Nicotine dependence, unspecified, uncomplicated; W00.0XXA Fall on same level due to ice and snow, initial encounter
CPT/HCPCS: 99283

== ENCOUNTER → 2021-06-10 | Outpatient (CLI) | payer BC ==
--- NOTE | 2021-06-10 07:36 | CT ---
EXAMINATION TYPE: CT ankle LT wo con DATE OF EXAM: 06/10/2021 COMPARISON: Left ankle x-ray 6 days ago HISTORY: Lt ankle pain. Nondisplaced bimalleolar fracture. CT DLP: 206.5 mGycm Automated exposure control for dose reduction was used. FINDINGS: Overlying splint and/or cast material is now present. Acute oblique nondisplaced intra-articular frac ture through the lateral malleolus is seen best on sagittal images 14 through 18. Medial malleolus is intact. On sagittal images there is acute comminuted intra-articular fracture through the posterior malleolus having predominantly vertical component but some additional oblique components inferiorly are presen t seen best sagittal images 21 through 26 corresponding to axial images. Ankle mortise symmetry is preserved. Remainder hindfoot articulations are maintained. There is modera te subcutaneous edema and soft tissue swelling redemonstrated greatest over the medial and lateral ma lleoli. IMPRESSION: Confirmation of nondisplaced articular bimalleolar fractures as detailed above.
== END | disposition home or self-care (01) ==
LOC: RADCTMAIN 06:53
PROVIDERS: ATTEND Podiatrist
DX: S82.845A Nondisplaced bimalleolar fracture of left lower leg, initial encounter for closed fracture (principal); X58.XXXA Exposure to other specified factors, initial encounter

== ENCOUNTER 2021-09-11 22:48 | Emergency (ER) | payer BC ==
[2021-09-12] MEDS ORDERED: SODIUM CHLORIDE 0.9% 1,000 ML IV STA (00:59)
[2021-09-12 01:13] LABS: Basophils % (A) 0 %; Eosinophils # (A) 0.1 k/uL (0-0.7); Eosinophils % (A) 1 %; HCT 38.7 % (34.0-46.0); HGB 12.6 gm/dL (11.4-16.0); Lymphocytes # (A) 2.7 k/uL (1.0-4.8); Lymphocytes % (A) 29 %; MCHC 32.6 g/dL (31.0-37.0); Mean Platelet Volume 8.5; Monocytes # (A) 0.4 k/uL (0-1.0); Monocytes % (A) 5 %; Neutrophils % (A) 64 %; Platelet Count 259 k/uL (150-450); RBC 4.07 m/uL (3.80-5.40); RDW 13.3 % (11.5-15.5); WBC 9.3 k/uL (3.8-10.6)
[2021-09-12 01:31] LABS: Appearance,Urine Cloudy (Clear); Bilirubin,Urine Negative (Negative); Blood,Urine Large (Negative); Color,Urine Red; Glucose,Urine (UA) Negative (Negative); Ketones,Urine Negative (Negative); Leukocyte Esterase,Urine Moderate (Negative); Nitrite,Urine Negative (Negative); PH, Urine 6.5 (5.0-8.0); Protein,Urine Trace (Negative); RBC,Urine >182 /hpf (0-5); Specific Gravity,Urine 1.016 (1.001-1.035); Squamous Epithelial Cell,Urine 2 /hpf (0-4); Urobilinogen,Urine <2.0 mg/dL (<2.0); WBC,Urine 37 /hpf (0-5)
--- NOTE | 2021-09-12 01:33 | ED ---
Female Urogenital HPI - General Chief complaint: Vaginal Bleeding Stated complaint: vaginal bleeding Time Seen by Provider: 09/12/21 00:59 Source: patient, RN notes reviewed Mode of arrival: ambulatory Limitations: no limitations - History of Present Illness Initial comments: This is a pleasant 35-year-old female presents with vaginal bleeding wasn't going on for 4 days. She states this is heavier than her normal menses. Patient went through several supersize tampons today. She denies any syncopal episodes. She denies any lightheadedness. No chest pain or palpitations. No bleeding from other sites. Patient does have a history of Crohn's disease. She denies chance of . Patient previously had tubal ligation. No headache, no fever or chills, no changes in vision or hearing, no sore throat or difficulty with speech, no neck pain, no chest pain or shortness of breath, no abdominal pain, no nausea or vomiting, no changes in urination or bowel movements, no numbness or tingling, no extremity pain, no skin rashes or lesions. MD Complaint: vaginal bleeding - Related Data Home Medications Medication Instructions Recorded Confirmed Albuterol Sulfate [Proair Hfa] 2 puff INHALATION RT-Q6H PRN 05/26/19 02/15/20 Pnv No.95/Ferrous Fum/Folic AC 1 each PO DAILY 11/09/19 02/15/20 [ Multivitamin Tablet] Infliximab-Dyyb [Inflectra] 100 mg IV DIRECTED 12/12/19 02/15/20 Previous Rx's Medication Instructions Recorded Fluticasone/Salmeterol [Advair 1 inhalation PO BID #1 inhaler 05/26/19 250-50 Diskus] HYDROcodone/APAP 5-325MG [[place] 1 each PO Q6H PRN #12 tab 06/04/21 5-325] Allergies Allergy/AdvReac Type Severity Reaction Status Date / Time No Known Allergies Allergy Verified 09/11/21 23:36 Review of Systems ROS Statement: Those systems with pertinent positive or pertinent negative responses have been documented in the HPI. ROS Other: All systems not noted in ROS Statement are negative. Past Medical History Past Medical History: No Reported History Additional Past Medical History / Comment(s): Crohn's, bowel obstructions, hypoglycemia History of Any Multi-Drug Resistant Organisms: None Reported Past Surgical History: Adenoidectomy, Section Additional Past Surgical History / Comment(s): Colonoscopy Past Anesthesia/Blood Transfusion Reactions: No Reported Reaction Past Psychological History: No Psychological Hx Reported Smoking Status: Current every day smoker Past Alcohol Use History: None Reported Past Drug Use History: Marijuana - Past Family History Mother Family Medical History: Diabetes Mellitus Additional Family Medical History / Comment(s): Mother is healthy Father History Unknown: Yes Additional Family Medical History / Comment(s): Pt does not know her father. General Exam Limitations: no limitations General appearance: alert, in no apparent distress Head exam: Present: atraumatic, normocephalic, normal inspection Eye exam: Present: normal appearance, PERRL, EOMI. Absent: scleral icterus, conjunctival injection, periorbital swelling ENT exam: Present: normal exam, mucous membranes moist Neck exam: Present: normal inspection. Absent: tenderness, meningismus, lymphadenopathy Respiratory exam: Present: normal lung sounds bilaterally. Absent: respiratory distress, wheezes, rales, rhonchi, stridor Cardiovascular Exam: Present: regular rate, normal rhythm, normal heart sounds. Absent: systolic murmur, diastolic murmur, rubs, gallop, clicks GI/Abdominal exam: Present: soft, normal bowel sounds. Absent: distended, tenderness, guarding, rebound, rigid Extremities exam: Present: normal inspection, full ROM, normal capillary refill. Absent: tenderness, pedal edema, joint swelling, calf tenderness Back exam: Present: normal inspection Neurological exam: Present: alert, oriented X3, CN II-XII intact Psychiatric exam: Present: normal affect, normal mood Skin exam: Present: warm, dry, intact, normal color. Absent: rash Course Vital Signs 09/11/21 09/12/21 23:32 03:50 Temperature 97.6 F 97.7 F Pulse Rate 88 76 Respiratory 18 22 Rate Blood Pressure 104/68 122/77 O2 Sat by Pulse 98 97 Oximetry Medical Decision Making - Medical Decision Making Patient presents with vaginal bleeding was going on for about 4 days. Hemodynamically stable. Ultrasound did not show any acute findings. Blood work was essentially normal. No significant anemia. Going to have the patient follow-up with Dr. Rand for for her as she is established there. Work note was given. Patient was in no distress at the time of discharge. We'll have her use acetaminophen for pain control. The case was discussed in detail with ED attending physician. Presentation, findings, treatment plan discussed in detail. Dr. Galarza Patient was told to return to the ER for any signs or symptoms worsen. Told to return immediately if any other problems arise. All questions answered. Treatment plan discussed. Patient in agreement Every effort has been made to ensure accuracy of this dictation. However, due to the limitations of electronic medical records and dictation devices, errors in charting still occur. - Lab Data Result diagrams: 09/12/21 00:40 09/12/21 00:40 Lab Results 09/12/21 09/12/21 09/12/21 Range/Units 00:40 00:40 00:40 WBC 9.3 (3.8-10.6) k/uL RBC 4.07 (3.80-5.40) m/uL Hgb 12.6 (11.4-16.0) gm/dL Hct 38.7 (34.0-46.0) % MCV 95.0 (80.0-100.0) fL MCH 31.0 (25.0-35.0) pg MCHC 32.6 (31.0-37.0) g/dL RDW 13.3 (11.5-15.5) % Plt Count 259 (150-450) k/uL MPV 8.5 Neutrophils % 64 % Lymphocytes % 29 % Monocytes % 5 % Eosinophils % 1 % Basophils % 0 % Neutrophils # 6.0 (1.3-7.7) k/uL Lymphocytes # 2.7 (1.0-4.8) k/uL Monocytes # 0.4 (0-1.0) k/uL Eosinophils # 0.1 (0-0.7) k/uL Basophils # 0.0 (0-0.2) k/uL Sodium (137-145) mmol/L Potassium (3.5-5.1) mmol/L Chloride (98-107) mmol/L Carbon Dioxide (22-30) mmol/L Anion Gap mmol/L BUN (7-17) mg/dL Creatinine (0.52-1.04) mg/dL Est GFR (CKD-EPI)AfAm (>60 ml/min/1.73 sqM) Est GFR (CKD-EPI)NonAf (>60 ml/min/1.73 sqM) Glucose (74-99) mg/dL Calcium (8.4-10.2) mg/dL Total Bilirubin (0.2-1.3) mg/dL AST (14-36) U/L ALT (4-34) U/L Alkaline Phosphatase (38-126) U/L Total Protein (6.3-8.2) g/dL Albumin (3.5-5.0) g/dL TSH (0.465-4.680) mIU/L Urine Color Red Urine Appearance Cloudy H (Clear) Urine pH 6.5 (5.0-8.0) Ur Specific [place] 1.016 (1.001-1.035) Urine Protein Trace H (Negative) Urine Glucose (UA) Negative (Negative) Urine Ketones Negative (Negative) Urine Blood Large H (Negative) Urine Nitrite Negative (Negative) Urine Bilirubin Negative (Negative) Urine Urobilinogen <2.0 (<2.0) mg/dL Ur Leukocyte Esterase Moderate H (Negative) Urine RBC >182 H (0-5) /hpf Urine WBC 37 H (0-5) /hpf Ur Squamous Epith Cells 2 (0-4) /hpf Urine HCG, Qual Not Detected (Not Detectd) Blood Type Blood Type Recheck Bld Type Recheck Status Antibody Screen Spec Expiration Date 09/12/21 09/12/21 Range/Units 00:40 00:40 WBC (3.8-10.6) k/uL RBC (3.80-5.40) m/uL Hgb (11.4-16.0) gm/dL Hct (34.0-46.0) % MCV (80.0-100.0) fL MCH (25.0-35.0) pg MCHC (31.0-37.0) g/dL RDW (11.5-15.5) % Plt Count (150-450) k/uL MPV Neutrophils % % Lymphocytes % % Monocytes % % Eosinophils % % Basophils % % Neutrophils # (1.3-7.7) k/uL Lymphocytes # (1.0-4.8) k/uL Monocytes # (0-1.0) k/uL Eosinophils # (0-0.7) k/uL Basophils # (0-0.2) k/uL Sodium 138 (137-145) mmol/L Potassium 3.9 (3.5-5.1) mmol/L Chloride 108 H (98-107) mmol/L Carbon Dioxide 23 (22-30) mmol/L Anion Gap 7 mmol/L BUN 8 (7-17) mg/dL Creatinine 0.60 (0.52-1.04) mg/dL Est GFR (CKD-EPI)AfAm >90 (>60 ml/min/1.73 sqM) Est GFR (CKD-EPI)NonAf >90 (>60 ml/min/1.73 sqM) Glucose 95 (74-99) mg/dL Calcium 9.0 (8.4-10.2) mg/dL Total Bilirubin 0.3 (0.2-1.3) mg/dL AST 18 (14-36) U/L ALT 12 (4-34) U/L Alkaline Phosphatase 66 (38-126) U/L Total Protein 7.0 (6.3-8.2) g/dL Albumin 4.0 (3.5-5.0) g/dL TSH 3.040 (0.465-4.680) mIU/L Urine Color Urine Appearance (Clear) Urine pH (5.0-8.0) Ur Specific [place] (1.001-1.035) Urine Protein (Negative) Urine Glucose (UA) (Negative) Urine Ketones (Negative) Urine Blood (Negative) Urine Nitrite (Negative) Urine Bilirubin (Negative) Urine Urobilinogen (<2.0) mg/dL Ur Leukocyte Esterase (Negative) Urine RBC (0-5) /hpf Urine WBC (0-5) /hpf Ur Squamous Epith Cells (0-4) /hpf Urine HCG, Qual (Not Detectd) Blood Type A Positive Blood Type Recheck A Pos Bld Type Recheck Status No Antibody Screen NEGATIVE Spec Expiration Date 09/15/20212339 Disposition Clinical Impression: Dysfunctional uterine bleeding Disposition: HOME SELF-CARE Condition: Good Instructions (If sedation given, give patient instructions): Abnormal (Dysfunctional) Uterine Bleeding (ED) Additional Instructions: Follow-up with your regular physician as directed. Return to the ER immediately if any symptoms worsen, new symptoms arise, or any other problems develop. Is patient prescribed a controlled substance at d/c from ED?: No Referrals: Karen Hannah MD [STAFF PHYSICIAN] - 1-2 days Time of Disposition: 03:47
--- NOTE | 2021-09-12 02:13 | US ---
EXAMINATION TYPE: US transvaginal DATE OF EXAM: 09/12/2021 COMPARISON: NONE CLINICAL HISTORY: Vaginal bleeding, pelvic pain. heavy vaginal bleeding for 4 days. history of c-sect ion and tubal ligation TECHNIQUE: Transvaginal (TV). Date of LMP: 3 weeks ago EXAM MEASUREMENTS: Uterus: 9.0 x 4.9 x 6.2 cm Endometrial Stripe: 2.1 cm Right Ovary: 3.4 x 1.8 x 2.1 cm Left Ovary: 2.2 x 1.3 x 1.5 cm 1. Uterus: Anteverted heterogeneous 2. Endometrium: thickened, heterogeneous 3. Right Ovary: follicles noted 4. Left Ovary: follicles noted Spectral, color and waveform doppler imaging shows good arterial and venous flow within the ovaries ; there is no evidence for ovarian torsion. 5. Bilateral Adnexa: appears wnl 6. Posterior cul-de-sac: wnl IMPRESSION: Thickened endometrium. No adnexal mass. No evidence of ovarian torsion.
[2021-09-12 03:54] LABS: ALT 12 U/L (4-34); AST 18 U/L (14-36); African American GFR (CKD) >90 (>60 ml/min/1.73 sqM); Alkaline Phosphatase 66 U/L (38-126); Anion Gap 7 mmol/L; Blood Urea Nitrogen 8 mg/dL (7-17); Carbon Dioxide 23 mmol/L (22-30); Chloride 108 mmol/L (98-107); Glucose 95 mg/dL (74-99); Non-African American GFR(CKD) >90 (>60 ml/min/1.73 sqM); Potassium 3.9 mmol/L (3.5-5.1); Sodium 138 mmol/L (137-145); Total Bilirubin 0.3 mg/dL (0.2-1.3)
[2021-09-12 04:05] VITALS: BP 122/77; PULSE 76; RESP 22; TEMP 97.7
== END 2021-09-12 03:50 | disposition home or self-care (01) ==
LOC: EC 22:48
DX: N93.8 Other specified abnormal uterine and vaginal bleeding (principal); F17.200 Nicotine dependence, unspecified, uncomplicated
CPT/HCPCS: 36415; 76830; 80053; 81001; 81025; 84443; 85025; 86850; 86900; 86901; 87086; 93975; 96360; 99284

== ENCOUNTER 2022-11-02 01:08 | Emergency (ER) | payer BC ==
[2022-11-02 01:15] VITALS: TEMP 97.5
[2022-11-02] MEDS ORDERED: ONDANSETRON 4 MG/2 ML VIAL IVP STA (03:02)
[2022-11-02] MEDS ORDERED: KETOROLAC 15 MG/ML 1 ML VIAL IVP STA (03:02)
[2022-11-02] MEDS ORDERED: SODIUM CHLORIDE 0.9% 1,000 ML IV STA (03:02)
[2022-11-02 03:30] LABS: Anisocytosis Slight; Basophils % (A) 0 %; Eosinophils # (A) 0.1 k/uL (0-0.7); Eosinophils % (A) 1 %; HCT 38.6 % (34.0-46.0); HGB 12.2 gm/dL (11.4-16.0); Hypochromasia Slight; Lymphocytes # (A) 1.5 k/uL (1.0-4.8); Lymphocytes % (A) 16 %; MCH 25.5 pg (25.0-35.0); MCHC 31.7 g/dL (31.0-37.0); MCV 80.5 fL (80.0-100.0); Mean Platelet Volume 8.6; Microcytosis Slight; Monocytes # (A) 0.4 k/uL (0-1.0); Monocytes % (A) 4 %; Neutrophils % (A) 77 %; Platelet Count 313 k/uL (150-450); RDW 17.1 % (11.5-15.5); WBC 9.1 k/uL (3.8-10.6)
[2022-11-02 03:33] LABS: Appearance,Urine Clear (Clear); Bilirubin,Urine Negative (Negative); Blood,Urine Negative (Negative); Color,Urine Light Yellow; Glucose,Urine (UA) Negative (Negative); Ketones,Urine Negative (Negative); Leukocyte Esterase,Urine Negative (Negative); Nitrite,Urine Negative (Negative); PH, Urine 7.5 (5.0-8.0); Protein,Urine Negative (Negative); Specific Gravity,Urine 1.009 (1.001-1.035); Urobilinogen,Urine <2.0 mg/dL (<2.0)
[2022-11-02 03:55] LABS: ALT 13 U/L (4-34); AST 19 U/L (14-36); African American GFR (CKD) >90 (>60 ml/min/1.73 sqM); Albumin 4.1 g/dL (3.5-5.0); Alkaline Phosphatase 69 U/L (38-126); Amylase 49 U/L (30-110); Anion Gap 8 mmol/L; Blood Urea Nitrogen 10 mg/dL (7-17); Calcium 9.2 mg/dL (8.4-10.2); Carbon Dioxide 26 mmol/L (22-30); Chloride 103 mmol/L (98-107); Glucose 96 mg/dL (74-99); Lipase 83 U/L (23-300); Non-African American GFR(CKD) >90 (>60 ml/min/1.73 sqM); Sodium 137 mmol/L (137-145); Total Bilirubin 0.3 mg/dL (0.2-1.3); Total Protein 7.1 g/dL (6.3-8.2)
--- NOTE | 2022-11-02 05:08 | ED ---
Abdominal Pain HPI - General Source: patient Mode of arrival: ambulatory Limitations: no limitations <Silvestre Cassidy - Last Filed: 11/02/22 05:06> <Anthony Roland - Last Filed: 11/02/22 06:44> - General Chief Complaint: Abdominal Pain Stated Complaint: ABD PAIN Time Seen by Provider: 11/02/22 02:40 - History of Present Illness Initial Comments: 37-year-old female bending with chief complaint of abdominal pain. Patient has history of Crohn's disease and feels like this is a flareup of her Crohn's. Patient admits to pain across the lower portion of the abdomen which feels cramping in nature. Admits to nausea, vomiting, diarrhea. No fevers or chills. No hematemesis, hematochezia, melena. No dysuria or hematuria. No flank pain. (Silvestre Cassidy) - Related Data Home Medications Medication Instructions Recorded Confirmed Albuterol Sulfate [Proair Hfa] 2 puff INHALATION RT-Q6H PRN 05/26/19 02/28/22 Infliximab-Dyyb [Inflectra] 100 mg IV DIRECTED 12/12/19 02/28/22 Previous Rx's Medication Instructions Recorded Fluticasone Propion/Salmeterol 1 inhalation PO BID #1 inhaler 05/26/19 [Advair 250-50 Diskus] predniSONE 50 mg PO DAILY #5 tab 06/29/22 Dicyclomine [Bentyl] 10 mg PO TID #30 capsule 11/02/22 Allergies Allergy/AdvReac Type Severity Reaction Status Date / Time No Known Allergies Allergy Verified 11/02/22 01:14 Review of Systems ROS Other: All systems not noted in ROS Statement are negative. <Silvestre Cassidy - Last Filed: 11/02/22 05:06> ROS Other: All systems not noted in ROS Statement are negative. <Anthony Roland - Last Filed: 11/02/22 06:44> ROS Statement: Those systems with pertinent positive or pertinent negative responses have been documented in the HPI. Past Medical History Past Medical History: Asthma Additional Past Medical History / Comment(s): Crohn's, bowel obstructions, hypoglycemia History of Any Multi-Drug Resistant Organisms: None Reported Past Surgical History: Adenoidectomy, Section Additional Past Surgical History / Comment(s): Colonoscopy Past Anesthesia/Blood Transfusion Reactions: No Reported Reaction Past Psychological History: No Psychological Hx Reported Smoking Status: Current every day smoker Past Alcohol Use History: None Reported Past Drug Use History: None Reported - Past Family History Mother Family Medical History: Diabetes Mellitus Additional Family Medical History / Comment(s): Mother is healthy Father History Unknown: Yes Additional Family Medical History / Comment(s): Pt does not know her father. <Silvestre Cassidy - Last Filed: 11/02/22 05:06> General Exam Limitations: no limitations General appearance: alert, in no apparent distress Head exam: Present: atraumatic, normocephalic, normal inspection Eye exam: Present: normal appearance, EOMI. Absent: scleral icterus, periorbital swelling Neck exam: Present: normal inspection, full ROM Respiratory exam: Present: normal lung sounds bilaterally. Absent: respiratory distress, wheezes, rales, rhonchi, stridor Cardiovascular Exam: Present: regular rate, normal rhythm, normal heart sounds. Absent: systolic murmur, diastolic murmur, rubs, gallop, clicks GI/Abdominal exam: Present: soft, tenderness. Absent: distended, guarding, rebound, rigid Neurological exam: Present: alert, oriented X3, CN II-XII intact Psychiatric exam: Present: normal affect, normal mood Skin exam: Present: warm, dry, intact, normal color. Absent: rash <Silvestre Cassidy - Last Filed: 11/02/22 05:06> Course Vital Signs 11/02/22 11/02/22 11/02/22 01:11 03:43 06:39 Temperature 97.5 F L Pulse Rate 82 71 72 Respiratory 18 16 18 Rate Blood Pressure 119/85 107/73 117/80 O2 Sat by Pulse 98 100 97 Oximetry Medical Decision Making - Lab Data Result diagrams: 11/02/22 03:07 11/02/22 03:07 <Silvestre Cassidy - Last Filed: 11/02/22 05:06> - Lab Data Result diagrams: 11/02/22 03:07 11/02/22 03:07 <Anthony Roland - Last Filed: 11/02/22 06:44> - Medical Decision Making Was pt. sent in by a medical professional or institution (, PA, LEAD MATERIAL HANDLER, urgent care, hospital, or senior living...) When possible be specific @ -No Did you speak to anyone other than the patient for history (EMS, parent, family, police, friend...)? What history was obtained from this source @ -No Did you review nursing and triage notes (agree or disagree)? Why? @ -I reviewed and agree with nursing and triage notes Were old charts reviewed (outside hosp., previous admission, EMS record, old EKG, old radiological studies, urgent care reports/EKG's, senior living records)? Report findings @ -No old charts were reviewed Differential Diagnosis (chest pain, altered mental status, abdominal pain women, abdominal pain men, vaginal bleeding, weakness, fever, dyspnea, syncope, headac he, dizziness, GI bleed, back pain, seizure, CVA, palpatations, mental health, musculoskeletal)? @ -MDM Differential Abdominal Pain Women: Appendicitis, Cholecystitis, diverticulosis, ischemic bowel, pancreatitis, hepatitis, UTI, gastroenteritis, AAA, incarcerated hernia, bowel obstruction, constipation, inflammatory bowel, hepatitis, peptic ulcer disease, splenic infarction, perforated viscus, vulvitis, ovarian torsion, PID, kidney stone, placenta abruption... This is not meant to be an all-inclusive list EKG interpreted by me (3pts min.). @ -As above X-rays interpreted by me (1pt min.). @ -None done (Silvestre Cassidy) The patient was signed out to me from the [facility]. The patient was signed out pending completion of the CT abdomen and pelvis and reevaluation. EKG interpreted by me (3pts min.). @ -As above X-rays interpreted by me (1pt min.). @ -None done CT interpreted by me (1pt min.). @ -CT abdomen and pelvis with IV contrast was obtained and was interpreted by myself showing marked thickening of the distal small bowel and terminal ileum compatible with active Crohn's disease. There is free fluid seen adjacent to be inflamed bowel. There is no evidence for fistular abscess. U/S interpreted by me (1pt. min.). @ -None done What testing was considered but not performed or refused? (CT, X-rays, U/S, labs)? Why? @ -None What meds were considered but not given or refused? Why? @ -None Did you discuss the management of the patient with other professionals (professionals i.e. , [facility], LEAD MATERIAL HANDLER, lab, RT, psych nurse, elementary school social worker, harvesting contractor, teacher, drug abuse resistance education officer, case management coordinator)? Give summary @ -No Was smoking cessation discussed for >3mins.? @ -Yes Was critical care preformed (if so, how long)? @ -No Were there social determinants of health that impacted care today? How? (Homelessness, low income, unemployed, alcoholism, drug addiction, transportation, low edu. Level, literacy, decrease access to med. care, prison, rehab)? @ -No Was there de-escalation of care discussed even if they declined (Discuss DNR or withdrawal of care, Hospice)? DNR status @ -No What co-morbidities impacted this encounter? (DM, HTN, Smoking, COPD, CAD, Cancer, CVA, ARF, Chemo, Hep., AIDS, mental health diagnosis, sleep apnea, morbid obesity)? @ -Crohns disease Was patient admitted / discharged? Hospital course, mention meds given and route, prescriptions, significant lab abnormalities, going to OR and other pertinent info. @ -The patient was initially seen and evaluated by the [facility]. Initial workup was started and the patient was sent out to me pending completion of the CT abdomen and pelvis with contrast. The computed tomography scan showed likely active Crohn's flare and the patient stated that she did not take anything for this usually. The patient stated that she used to be in remission since February and has not taken any other medication. The patient was given IM Bentyl and was given a prescription for Bentyl to be taken at home. The patient was advised to follow-up with her own credit correspondence clerk for further workup and evaluation and to report back to the emergency department if she had worsening pain or distress. The patient was agreeable to this and all of her questions were answered reportedly. The patient was discharged home in stable condition. Undiagnosed new problem with uncertain prognosis? @ -No Drug Therapy requiring intensive monitoring for toxicity (Heparin, Nitro, Insulin, Cardizem)? @ -No Were any procedures done? @ -No Diagnosis/symptom? @ -Crohn's disease, flare Acute, or Chronic, or Acute on Chronic? @ -Acute Uncomplicated (without systemic symptoms) or Complicated (systemic symptoms)? @ -Uncomplicated Side effects of treatment? @ -No Exacerbation, Progression, or Severe Exacerbation? @ -No Poses a threat to life or bodily function? How? (Chest pain, [place], [place], pneumonia, PE, COPD, DKA, ARF, appy, cholecystitis, CVA, Diverticulitis, Homicidal, Suicidal, threat to staff... and all critical care pts) @ -No (Anthony Roland) - Lab Data Lab Results 11/02/22 11/02/22 11/02/22 Range/Units 03:07 03:07 03:07 WBC 9.1 (3.8-10.6) k/uL RBC 4.80 (3.80-5.40) m/uL Hgb 12.2 (11.4-16.0) gm/dL Hct 38.6 (34.0-46.0) % MCV 80.5 (80.0-100.0) fL MCH 25.5 (25.0-35.0) pg MCHC 31.7 (31.0-37.0) g/dL RDW 17.1 H (11.5-15.5) % Plt Count 313 (150-450) k/uL MPV 8.6 Neutrophils % 77 % Lymphocytes % 16 % Monocytes % 4 % Eosinophils % 1 % Basophils % 0 % Neutrophils # 7.0 (1.3-7.7) k/uL Lymphocytes # 1.5 (1.0-4.8) k/uL Monocytes # 0.4 (0-1.0) k/uL Eosinophils # 0.1 (0-0.7) k/uL Basophils # 0.0 (0-0.2) k/uL Hypochromasia Slight Anisocytosis Slight Microcytosis Slight Sodium (137-145) mmol/L Potassium (3.5-5.1) mmol/L Chloride (98-107) mmol/L Carbon Dioxide (22-30) mmol/L Anion Gap mmol/L BUN (7-17) mg/dL Creatinine (0.52-1.04) mg/dL Est GFR (CKD-EPI)AfAm (>60 ml/min/1.73 sqM) Est GFR (CKD-EPI)NonAf (>60 ml/min/1.73 sqM) Glucose (74-99) mg/dL Plasma Lactic Acid Darryl (0.7-2.0) mmol/L Calcium (8.4-10.2) mg/dL Total Bilirubin (0.2-1.3) mg/dL AST (14-36) U/L ALT (4-34) U/L Alkaline Phosphatase (38-126) U/L Total Protein (6.3-8.2) g/dL Albumin (3.5-5.0) g/dL Amylase (30-110) U/L Lipase (23-300) U/L Urine Color Light Yellow Urine Appearance Clear (Clear) Urine pH 7.5 (5.0-8.0) Ur Specific [place] 1.009 (1.001-1.035) Urine Protein Negative (Negative) Urine Glucose (UA) Negative (Negative) Urine Ketones Negative (Negative) Urine Blood Negative (Negative) Urine Nitrite Negative (Negative) Urine Bilirubin Negative (Negative) Urine Urobilinogen <2.0 (<2.0) mg/dL Ur Leukocyte Esterase Negative (Negative) Urine HCG, Qual Not Detected (Not Detectd) 11/02/22 11/02/22 Range/Units 03:07 03:07 WBC (3.8-10.6) k/uL RBC (3.80-5.40) m/uL Hgb (11.4-16.0) gm/dL Hct (34.0-46.0) % MCV (80.0-100.0) fL MCH (25.0-35.0) pg MCHC (31.0-37.0) g/dL RDW (11.5-15.5) % Plt Count (150-450) k/uL MPV Neutrophils % % Lymphocytes % % Monocytes % % Eosinophils % % Basophils % % Neutrophils # (1.3-7.7) k/uL Lymphocytes # (1.0-4.8) k/uL Monocytes # (0-1.0) k/uL Eosinophils # (0-0.7) k/uL Basophils # (0-0.2) k/uL Hypochromasia Anisocytosis Microcytosis Sodium 137 (137-145) mmol/L Potassium 4.0 (3.5-5.1) mmol/L Chloride 103 (98-107) mmol/L Carbon Dioxide 26 (22-30) mmol/L Anion Gap 8 mmol/L BUN 10 (7-17) mg/dL Creatinine 0.54 (0.52-1.04) mg/dL Est GFR (CKD-EPI)AfAm >90 (>60 ml/min/1.73 sqM) Est GFR (CKD-EPI)NonAf >90 (>60 ml/min/1.73 sqM) Glucose 96 (74-99) mg/dL Plasma Lactic Acid Darryl 1.2 (0.7-2.0) mmol/L Calcium 9.2 (8.4-10.2) mg/dL Total Bilirubin 0.3 (0.2-1.3) mg/dL AST 19 (14-36) U/L ALT 13 (4-34) U/L Alkaline Phosphatase 69 (38-126) U/L Total Protein 7.1 (6.3-8.2) g/dL Albumin 4.1 (3.5-5.0) g/dL Amylase 49 (30-110) U/L Lipase 83 (23-300) U/L Urine Color Urine Appearance (Clear) Urine pH (5.0-8.0) Ur Specific [place] (1.001-1.035) Urine Protein (Negative) Urine Glucose (UA) (Negative) Urine Ketones (Negative) Urine Blood (Negative) Urine Nitrite (Negative) Urine Bilirubin (Negative) Urine Urobilinogen (<2.0) mg/dL Ur Leukocyte Esterase (Negative) Urine HCG, Qual (Not Detectd) Disposition <Silvestre Cassidy - Last Filed: 11/02/22 05:06> Is patient prescribed a controlled substance at d/c from ED?: No Time of Disposition: 06:30 <Anthony Roland - Last Filed: 11/02/22 06:44> Clinical Impression: Crohn disease Disposition: HOME SELF-CARE Condition: Stable Prescriptions: Dicyclomine [Bentyl] 10 mg PO TID #30 capsule Referrals: Madison Vick MD [Primary Care Provider] - 1-2 days
--- NOTE | 2022-11-02 06:22 | CT ---
EXAMINATION TYPE: CT abdomen pelvis w con DATE OF EXAM: 11/02/2022 COMPARISON: 12/17/18 HISTORY: abdominal pain CONTRAST: CT scan of the abdomen and pelvis is performed with Oral Contrast and , patient injected with 100 mL of Isovue 300. FINDINGS: LUNG BASES-: No visible nodule. No infiltrate. LIVER/GB: Multiplanar gallstone noted. No space occupying hepatic lesion. Biliary tree is of rickey l caliber. PANCREAS: No inflammation. No distinct mass. SPLEEN: No splenic enlargement. No lesion seen. ADRENALS: No nodule. No thickening. KIDNEYS/BLADDER: No hydronephrosis. No nephrolithiasis. No distinct renal mass. Urinary bladder g rossly unremarkable. BOWEL: There is marked thickening of the distal small bowel and terminal ileum compatible with active Crohn's disease. There is free fluid seen adjacent to inflamed bowel. No evidence for fistula or abs cess. Normal-appearing appendix. Remainder of the small and large bowel are of normal caliber. GENITAL ORGANS: Tubal ligation clips. LYMPH NODES: No greater than 1cm abdominal or pelvic lymph nodes are appreciated. AORTA: No significant abnormality. OSSEOUS STRUCTURES: No significant abnormality is seen. OTHER: No significant additional abnormality is seen. IMPRESSION: 1. There is marked thickening of the distal small bowel and terminal ileum compatible with active Crop Picker hn's disease. There is free fluid seen adjacent to inflamed bowel. No evidence for fistula or abscess .
[2022-11-02 06:40] VITALS: BP 117/80; PULSE 72; RESP 18
[2022-11-02] MEDS ORDERED: DICYCLOMINE 10 MG/ML 2 ML AMP IM STA (06:40)
== END 2022-11-02 06:48 | disposition home or self-care (01) ==
LOC: EC 01:08
DX: K50.90 Crohn's disease, unspecified, without complications (principal); J45.909 Unspecified asthma, uncomplicated; F17.200 Nicotine dependence, unspecified, uncomplicated; Z79.899 Other long term (current) drug therapy
CPT/HCPCS: 99284 ×2; 96374 ×2; 96375 ×2; 96361 ×2; 96372 ×2; 36415; 80053; 82150; 83605; 83690; 85025; 81003; 81025; 74177; J0500; J2405; J1885; Q9967

== ENCOUNTER 2023-07-05 03:18 | Emergency (ER) | payer BC ==
[2023-07-05 03:31] VITALS: TEMP 98.9
[2023-07-05] MEDS: KETOROLAC 15 MG/ML 1 ML VIAL IVP STA (03:55)
[2023-07-05] MEDS: ONDANSETRON 4 MG/2 ML VIAL IVP STA (04:04)
[2023-07-05] MEDS: SODIUM CHLORIDE 0.9% 1,000 ML IV STA (04:06)
[2023-07-05] MEDS: PANTOPRAZOLE 40 MG/10 ML VIAL IVP STA (04:06)
[2023-07-05 04:07] LABS: Basophils % (A) 0 %; Eosinophils # (A) 0.1 k/uL (0-0.7); Eosinophils % (A) 1 %; HGB 13.3 gm/dL (11.4-16.0); Lymphocytes # (A) 1.9 k/uL (1.0-4.8); Lymphocytes % (A) 16 %; MCH 29.9 pg (25.0-35.0); MCHC 33.3 g/dL (31.0-37.0); MCV 89.8 fL (80.0-100.0); Mean Platelet Volume 8.4; Monocytes # (A) 0.4 k/uL (0-1.0); Monocytes % (A) 3 %; Neutrophils # (A) 9.7 k/uL (1.3-7.7); Neutrophils % (A) 79 %; Platelet Count 266 k/uL (150-450); RBC 4.46 m/uL (3.80-5.40); RDW 14.7 % (11.5-15.5); WBC 12.2 k/uL (3.8-10.6)
--- NOTE | 2023-07-05 04:11 | ED ---
General Adult HPI - General Source: patient, RN notes reviewed, old records reviewed Mode of arrival: ambulatory Limitations: no limitations <Holland Aguirre - Last Filed: 07/05/23 06:49> <Homero Cuello - Last Filed: 07/05/23 08:14> - General Chief complaint: Nausea/Vomiting/Diarrhea Stated complaint: N/V/D chills Time Seen by Provider: 07/05/23 03:31 - History of Present Illness Initial comments: Patient is a 37-year-old female who presents emergency department complaining of nausea, vomiting, diarrhea for 3 days or so. Endorses focal abdominal tenderness as well. Has a history of Crohn's disease. No history of abdominal surgeries. Denies any significant chest discomfort or shortness of breath. D enies any urinary complaints. Believes she is currently on her menstrual cycle. Presents for further evaluation at this time over concern for abdominal pain. Thought it would pass but has not. Did see a clinic where they did viral swabs on her and she was negative for COVID, flu, RSV. States she is overall feeling improved but with her history of Crohn's wants to be evaluated. Follows up with Dr. Ruffin in the outpatient setting.Patient is also been complaining of a chronic cough lately. Relatively nonproductive. States "I am always congested." (Holland Aguirre) - Related Data Home Medications Medication Instructions Recorded Confirmed Albuterol Sulfate [Proair Hfa] 2 puff INHALATION RT-Q6H PRN 05/26/19 02/28/22 Infliximab-Dyyb [Inflectra] 100 mg IV DIRECTED 12/12/19 02/28/22 Previous Rx's Medication Instructions Recorded Fluticasone Propion/Salmeterol 1 inhalation PO BID #1 inhaler 05/26/19 [Advair 250-50 Diskus] predniSONE 50 mg PO DAILY #5 tab 06/29/22 Dicyclomine [Bentyl] 10 mg PO TID #30 capsule 11/02/22 predniSONE [Deltasone] 40 mg PO DAILY #8 tab 07/05/23 Allergies Allergy/AdvReac Type Severity Reaction Status Date / Time No Known Allergies Allergy Verified 07/05/23 03:27 Review of Systems ROS Other: All systems not noted in ROS Statement are negative. <Holland Aguirre - Last Filed: 07/05/23 06:49> ROS Other: All systems not noted in ROS Statement are negative. <Homero Cuello - Last Filed: 07/05/23 08:14> ROS Statement: Those systems with pertinent positive or pertinent negative responses have been documented in the HPI. Review of Systems: CONST: Denies fever EYES: Denies blurry vision ENT: Denies nasal congestion C/V: Denies Chest pain RESP: Denies shortness of breath GI: Endorses abdominal pain : Denies dysuria SKIN: Denies rash. MSK: Denies joint pain. NEURO: Denies headache (Holland Aguirre) Past Medical History Past Medical History: Asthma Additional Past Medical History / Comment(s): Crohn's, bowel obstructions, hypoglycemia History of Any Multi-Drug Resistant Organisms: None Reported Past Surgical History: Adenoidectomy, Section Additional Past Surgical History / Comment(s): Colonoscopy Past Anesthesia/Blood Transfusion Reactions: No Reported Reaction Past Psychological History: No Psychological Hx Reported Smoking Status: Current every day smoker Past Alcohol Use History: None Reported Past Drug Use History: None Reported - Past Family History Mother Family Medical History: Diabetes Mellitus Additional Family Medical History / Comment(s): Mother is healthy Father History Unknown: Yes Additional Family Medical History / Comment(s): Pt does not know her father. <Holland Aguirre - Last Filed: 07/05/23 06:49> General Exam Limitations: no limitations <Holland Aguirre - Last Filed: 07/05/23 06:49> - General Exam Comments Initial Comments: General: Appears in mild distress secondary to abdominal discomfort HEAD: Normal with no signs of head trauma. EYES: PERRLA, EOMI, conjunctiva normal, no discharge. ENT: Hearing grossly intact, normal oropharynx. RESPIRATORY: Clear breath sounds bilaterally. No wheezes, rales, or rhonchi. C/V: Regular rate and rhythm. S1 and S2 auscultated, no edema, peripheral pulses 2+ and intact throughout ABD: Abdomen soft, nondistended. Nonfocal tenderness to palpation. No guarding. No rebound tenderness. No peritoneal signs. EXT: Normal range of motion, no obvious deformity SKIN: No rashes or lesions observed on exposed skin. NEURO: Alert and oriented x 4. (Holland Aguirre) Course Vital Signs 07/05/23 07/05/23 03:25 05:38 Temperature 98.9 F Pulse Rate 88 72 Respiratory 18 16 Rate Blood Pressure 107/67 107/79 O2 Sat by Pulse 99 99 Oximetry Medical Decision Making - Lab Data Result diagrams: 07/05/23 03:47 07/05/23 03:47 - EKG Data -: EKG Interpreted by Me <Holland Aguirre - Last Filed: 07/05/23 06:49> - Lab Data Result diagrams: 07/05/23 03:47 07/05/23 03:47 <Homero Cuello - Last Filed: 07/05/23 08:14> - Medical Decision Making Was pt. sent in by a medical professional or institution (, PA, INDUSTRIAL [employer]EN SYSTEMS DESIGNER, urgent care, hospital, or long term...) When possible be specific @ -No Did you speak to anyone other than the patient for history (EMS, parent, family, police, friend...)? What history was obtained from this source @ -No Did you review nursing and triage notes (agree or disagree)? Why? @ -I reviewed and agree with nursing and triage notes Were old charts reviewed (outside hosp., previous admission, EMS record, old EKG, old radiological studies, urgent care reports/EKG's, long term records)? Report findings @ -Old charts reviewed Differential Diagnosis (chest pain, altered mental status, abdominal pain women, abdominal pain men, vaginal bleeding, weakness, fever, dyspnea, syncope, headache, dizziness, GI bleed, back pain, seizure, CVA, palpatations, mental health, musculoskeletal)? @ -Differential Abdominal Pain Women: Appendicitis, Cholecystitis, diverticulosis, ischemic bowel, pancreatitis, hepatitis, UTI, gastroenteritis, AAA, incarcerated hernia, bowel obstruction, constipation, inflammatory bowel, hepatitis, peptic ulcer disease, splenic infarction, perforated viscus, vulvitis, ovarian torsion, PID, kidney stone, placenta abruption, this is not meant to be an all-inclusive list EKG interpreted by me (3pts min.). @ -As above X-rays interpreted by me (1pt min.). @ -Pending CT interpreted by me (1pt min.). @ -Pending U/S interpreted by me (1pt. min.). @ -None done What testing was considered but not performed or refused? (CT, X-rays, U/S, labs)? Why? @ -None What meds were considered but not given or refused? Why? @ -None Did you discuss the management of the patient with other professionals (professionals i.e. , [facility], INDUSTRIAL [employer]EN SYSTEMS DESIGNER, lab, RT, psych nurse, neonatal social worker, dump motor operator, teacher, risk officer, medical case worker)? Give summary @ -No Was smoking cessation discussed for >3mins.? @ -No Was critical care preformed (if so, how long)? @ -No Were there social determinants of health that impacted care today? How? (Homelessness, low income, unemployed, alcoholism, drug addiction, transportation, low edu. Level, literacy, decrease access to med. care, [facility], rehab)? @ -No Was there de-escalation of care discussed even if they declined (Discuss DNR or withdrawal of care, Hospice)? DNR status @ -No What co-morbidities impacted this encounter? (DM, HTN, Smoking, COPD, CAD, Cancer, CVA, ARF, Chemo, Hep., AIDS, mental health diagnosis, sleep apnea, morbid obesity)? @ -Crohn's, tobacco abuse Was patient admitted / discharged? Hospital course, mention meds given and route, prescriptions, significant lab abnormalities, going to OR and other perti nent info. @ -Based on the patient's presentation and physical exam, patient presents emergency department complaining of abdominal pain, nausea, vomiting, diarrhea. He has a history of Crohn's. We will obtain abdominal laboratory studies. Has had a chronic mild cough as well. We will obtain chest x-ray as well as screening EKG. She was in agreement this plan. She will be symptomatically tr eated with IV Toradol, Zofran, Protonix, fluids. Considered obtaining viral swabs however patient recently had negative results 2 days ago. We both agree this is unnecessary at this time. She denies being as well. Vital signs are within acceptable limits. EKG shows no signs of acute is chemia.Patient's laboratory studies are within acceptable limits. Patient does have a mild leukocytosis of 12.2, as well as a mild hypokalemia 3.3 which was replenished but otherwise no obvious abnormalities. She is not . CT imaging imaging and chest x-ray were both obtained. Both are pending at this time. Patient signed out to Dr. Cuello pending results of imaging. Undiagnosed new problem with uncertain prognosis? @ -No Drug Therapy requiring intensive monitoring for toxicity (Heparin, Nitro, Insulin, Cardizem)? @ -No Were any procedures done? @ -No (Holland Aguirre) Was patient admitted / discharged? Hospital course, mention meds given and route, prescriptions, significant lab abnormalities, going to OR and other pertinent info. @ -Patient was feeling considerably better. Patient had no more nausea and her belly pain was improved. I gave the patient Solu-Medrol and I will be sending the patient home on prednisone. Patient states that she usually helps a lot. Undiagnosed new problem with uncertain prognosis? @ -No Drug Therapy requiring intensive monitoring for toxicity (Heparin, Nitro, Insulin, Cardizem)? @ -No Were any procedures done? @ -No Diagnosis/symptom? @ -Exacerbation of Crohn's Acute, or Chronic, or Acute on Chronic? @ -Acute Uncomplicated (without systemic symptoms) or Complicated (systemic symptoms)? @ -Complicated Side effects of treatment? @ -No Exacerbation, Progression, or Severe Exacerbation? @ -No Poses a threat to life or bodily function? How? (Chest pain, [place], [place], pneumonia, PE, COPD, DKA, ARF, appy, cholecystitis, CVA, Diverticulitis, Homicidal, Suicidal, threat to staff... and all critical care pts) @ -No (Homero Cuello) - Lab Data Lab Results 07/05/23 07/05/23 07/05/23 Range/Units 03:47 03:47 03:47 WBC 12.2 H (3.8-10.6) k/uL RBC 4.46 (3.80-5.40) m/uL Hgb 13.3 (11.4-16.0) gm/dL Hct 40.0 (34.0-46.0) % MCV 89.8 (80.0-100.0) fL MCH 29.9 (25.0-35.0) pg MCHC 33.3 (31.0-37.0) g/dL RDW 14.7 (11.5-15.5) % Plt Count 266 (150-450) k/uL MPV 8.4 Neutrophils % 79 % Lymphocytes % 16 % Monocytes % 3 % Eosinophils % 1 % Basophils % 0 % Neutrophils # 9.7 H (1.3-7.7) k/uL Lymphocytes # 1.9 (1.0-4.8) k/uL Monocytes # 0.4 (0-1.0) k/uL Eosinophils # 0.1 (0-0.7) k/uL Basophils # 0.0 (0-0.2) k/uL PT 10.4 (10.0-12.5) sec INR 0.9 (<1.2) APTT 24.5 (22.0-30.0) sec Sodium (137-145) mmol/L Potassium (3.5-5.1) mmol/L Chloride (98-107) mmol/L Carbon Dioxide (22-30) mmol/L Anion Gap mmol/L BUN (7-17) mg/dL Creatinine (0.52-1.04) mg/dL Est GFR (CKD-EPI)AfAm (>60 ml/min/1.73 sqM) Est GFR (CKD-EPI)NonAf (>60 ml/min/1.73 sqM) Glucose (74-99) mg/dL Plasma Lactic Acid Darryl (0.7-2.0) mmol/L Calcium (8.4-10.2) mg/dL Total Bilirubin (0.2-1.3) mg/dL AST (14-36) U/L ALT (4-34) U/L Alkaline Phosphatase (38-126) U/L Total Protein (6.3-8.2) g/dL Albumin (3.5-5.0) g/dL Amylase (30-110) U/L Lipase (23-300) U/L HCG, Qual Urine Color Light Yellow Urine Appearance Clear (Clear) Urine pH 5.5 (5.0-8.0) Ur Specific [place] 1.025 (1.001-1.035) Urine Protein Negative (Negative) Urine Glucose (UA) Negative (Negative) Urine Ketones Negative (Negative) Urine Blood Small H (Negative) Urine Nitrite Negative (Negative) Urine Bilirubin Negative (Negative) Urine Urobilinogen <2.0 (<2.0) mg/dL Ur Leukocyte Esterase Negative (Negative) Urine RBC 1 (0-5) /hpf Urine WBC 1 (0-5) /hpf Ur Squamous Epith Cells 3 (0-4) /hpf Hyaline Casts 1 (0-2) /lpf Urine Mucus Few H (None) /hpf 07/05/23 07/05/23 Range/Units 03:47 03:47 WBC (3.8-10.6) k/uL RBC (3.80-5.40) m/uL Hgb (11.4-16.0) gm/dL Hct (34.0-46.0) % MCV (80.0-100.0) fL MCH (25.0-35.0) pg MCHC (31.0-37.0) g/dL RDW (11.5-15.5) % Plt Count (150-450) k/uL MPV Neutrophils % % Lymphocytes % % Monocytes % % Eosinophils % % Basophils % % Neutrophils # (1.3-7.7) k/uL Lymphocytes # (1.0-4.8) k/uL Monocytes # (0-1.0) k/uL Eosinophils # (0-0.7) k/uL Basophils # (0-0.2) k/uL PT (10.0-12.5) sec INR (<1.2) APTT (22.0-30.0) sec Sodium 139 (137-145) mmol/L Potassium 3.3 L (3.5-5.1) mmol/L Chloride 106 (98-107) mmol/L Carbon Dioxide 23 (22-30) mmol/L Anion Gap 10 mmol/L BUN 14 (7-17) mg/dL Creatinine 0.65 (0.52-1.04) mg/dL Est GFR (CKD-EPI)AfAm >90 (>60 ml/min/1.73 sqM) Est GFR (CKD-EPI)NonAf >90 (>60 ml/min/1.73 sqM) Glucose 101 H (74-99) mg/dL Plasma Lactic Acid Darryl 1.8 (0.7-2.0) mmol/L Calcium 9.4 (8.4-10.2) mg/dL Total Bilirubin 0.3 (0.2-1.3) mg/dL AST 21 (14-36) U/L ALT 15 (4-34) U/L Alkaline Phosphatase 54 (38-126) U/L Total Protein 7.5 (6.3-8.2) g/dL Albumin 4.5 (3.5-5.0) g/dL Amylase 52 (30-110) U/L Lipase 63 (23-300) U/L HCG, Qual Not Detected Urine Color Urine Appearance (Clear) Urine pH (5.0-8.0) Ur Specific [place] (1.001-1.035) Urine Protein (Negative) Urine Glucose (UA) (Negative) Urine Ketones (Negative) Urine Blood (Negative) Urine Nitrite (Negative) Urine Bilirubin (Negative) Urine Urobilinogen (<2.0) mg/dL Ur Leukocyte Esterase (Negative) Urine RBC (0-5) /hpf Urine WBC (0-5) /hpf Ur Squamous Epith Cells (0-4) /hpf Hyaline Casts (0-2) /lpf Urine Mucus (None) /hpf - EKG Data EKG Comments: 12-lead Electrocardiogram Interpretation Note EKG was reviewed and interpreted by myself. 12-lead ECG performed at 0348 is i nterpreted by me as revealing normal sinus rhythm at a rate of 78 beats per minute. [place] is normal. [place] interval is 126 ms, QRS duration is 76 ms, QTc is 417 ms.. There were no ST or T wave abnormalities to suggest myocardial ischemia or injury. R wave progression across the precordium was satisfactory. By my interpretation this EKG is non-diagnostic for acute ischemia. (Holland Aguirre) Disposition <Holland Aguirre - Last Filed: 07/05/23 06:49> Is patient prescribed a controlled substance at d/c from ED?: No Time of Disposition: 08:14 <Homero Cuello - Last Filed: 07/05/23 08:14> Clinical Impression: Exacerbation of Crohn's disease Disposition: HOME SELF-CARE Condition: Good Instructions (If sedation given, give patient instructions): Crohn Disease (ED) Prescriptions: predniSONE [Deltasone] 40 mg PO DAILY #8 tab Referrals: Madison Vick MD [Primary Care Provider] - 1-2 days
[2023-07-05 04:19] LABS: ALT 15 U/L (4-34); AST 21 U/L (14-36); African American GFR (CKD) >90 (>60 ml/min/1.73 sqM); Albumin 4.5 g/dL (3.5-5.0); Alkaline Phosphatase 54 U/L (38-126); Amylase 52 U/L (30-110); Anion Gap 10 mmol/L; Blood Urea Nitrogen 14 mg/dL (7-17); Calcium 9.4 mg/dL (8.4-10.2); Carbon Dioxide 23 mmol/L (22-30); Chloride 106 mmol/L (98-107); Glucose 101 mg/dL (74-99); Lipase 63 U/L (23-300); Non-African American GFR(CKD) >90 (>60 ml/min/1.73 sqM); Potassium 3.3 mmol/L (3.5-5.1); Sodium 139 mmol/L (137-145); Total Bilirubin 0.3 mg/dL (0.2-1.3); Total Protein 7.5 g/dL (6.3-8.2)
[2023-07-05 04:21] LABS: INR 0.9 (<1.2); Partial Thromboplastin Time 24.5 sec (22.0-30.0); Prothrombin Time 10.4 sec (10.0-12.5)
[2023-07-05 04:31] LABS: Appearance,Urine Clear (Clear); Bilirubin,Urine Negative (Negative); Blood,Urine Small (Negative); Color,Urine Light Yellow; Glucose,Urine (UA) Negative (Negative); Hyaline Casts,Urine 1 /lpf (0-2); Ketones,Urine Negative (Negative); Leukocyte Esterase,Urine Negative (Negative); Mucus,Urine Few /hpf; Nitrite,Urine Negative (Negative); PH, Urine 5.5 (5.0-8.0); Protein,Urine Negative (Negative); RBC,Urine 1 /hpf (0-5); Specific Gravity,Urine 1.025 (1.001-1.035); Squamous Epithelial Cell,Urine 3 /hpf (0-4); Urobilinogen,Urine <2.0 mg/dL (<2.0); WBC,Urine 1 /hpf (0-5)
[2023-07-05 04:55] LABS: HCG,Qualitative Serum Not Detected
[2023-07-05] MEDS: POTASSIUM CHLORIDE ER 20 MEQ TAB.ER PO STA (05:35)
--- NOTE | 2023-07-05 07:26 | XR ---
EXAMINATION TYPE: XR chest 2V DATE OF EXAM: 07/05/2023 COMPARISON: 06/29/2022 HISTORY: 37-year-old female with abdominal pain TECHNIQUE: PA and lateral views FINDINGS: The cardiomediastinal silhouette, aorta, and pulmonary vasculature are within normal limits. Mild hyp erinflation likely related to depth of inspiration. Lungs and pleural spaces are clear. IMPRESSION: No acute cardiopulmonary process.
--- NOTE | 2023-07-05 07:36 | CT ---
EXAMINATION TYPE: CT abdomen pelvis w con DATE OF EXAM: 07/05/2023 COMPARISON: 11/02/2022 HISTORY: 37-year-old female Abd pain TECHNIQUE: Contiguous axial scanning of the abdomen and pelvis following administration of 100 ml Iso rupa r300 IV contrast. Delayed images through the kidneys and coronal/sagittal reconstructions perfor med. CT DLP: 555.2 mGycm Automated exposure control for dose reduction was used. FINDINGS: LUNG BASES: No significant abnormality is appreciated. LIVER/GB: No focal liver lesion or biliary ductal dilatation. Gallbladder is nondistended with approx imately 4 stones measuring up to 7 mm. PANCREAS: No significant abnormality is seen. SPLEEN: No significant abnormality is seen. ADRENALS: No significant abnormality is seen. KIDNEYS: No significant abnormality is seen. BOWEL: Nondilated small bowel. There is an approximate a 15-20 cm long segment of distal ileum that s hows moderate circumferential wall thickening and mucosal hyperemia. There may be minimal surrounding fat stranding. The terminal ileum itself appears to be maintained. Appendix is normal. Scattered mil d stool. There may be mild diverticular change in the sigmoid colon. No pericolonic inflammatory diaz ge seen. LYMPH NODES: Some prominent right lower quadrant mesenteric lymph nodes measuring up to 1.1 cm short axis likely reactive as postinflammatory. OTHER: No free fluid or free air. PELVIS: Bladder urine distended. Uterus anteverted. Bilateral tubal ligation clips. Both ovaries are visualized. No abnormal fluid collection in the pelvis or pelvic lymphadenopathy. BONES: No significant abnormality is identified. IMPRESSION: 1. INFECTIOUS OR INFLAMMATORY ILEITIS WITH MODERATE INFLAMMATORY WALL THICKENING INVOLVING A 15 TO 20 CM LONG SEGMENT OF THE DISTAL ILEUM. THE DEGREE OF INFLAMMATORY WALL THICKENING IS NOT PRONOUNCED ON 11/02/2022. QUERY ANY UNDERLYING HISTORY OF INFLAMMATORY BOWEL DISEASE. NO ABSCESS OR FREE AIR. 2. CHOLELITHIASIS. 3. SOME REACTIVE RIGHT LOWER QUADRANT MESENTERIC LYMPH NODES MEASURING UP TO 1.1 CM.
[2023-07-05] MEDS: methylPREDNISolone SOD SUCCI 125 MG/2 ML VIAL IV STA (08:46)
[2023-07-05 09:21] VITALS: BP 109/82; PULSE 78; RESP 18
== END 2023-07-05 08:59 | disposition home or self-care (01) ==
LOC: EC 03:18
DX: K50.90 Crohn's disease, unspecified, without complications (principal); K80.20 Calculus of gallbladder without cholecystitis without obstruction; J45.909 Unspecified asthma, uncomplicated; F17.200 Nicotine dependence, unspecified, uncomplicated; Z79.899 Other long term (current) drug therapy
CPT/HCPCS: 36415; 93005; 80053; 82150; 83605; 83690; 85025; 85610; 85730; 81001; 84703; 71046; 74177; 99285; 96374; 96375 ×3; 96361; J2930; J2405; J1885; C9113; Q9967

== ENCOUNTER → 2024-09-30 | Outpatient (CLI) | payer BC | LOC: CPPFTMAIN 17:06 | PROVIDERS: ATTEND Family Medicine | DX: J45.909 Unspecified asthma, uncomplicated (principal); Z87.891 Personal history of nicotine dependence | CPT/HCPCS: 94060; 94726; 94729 ==